=== PATIENT | male | born 1950 | race African-American/Black ===

== ENCOUNTER 2016-10-04 10:28 | Emergency (ER) | payer OTHER ==
[2016-10-04 10:39] VITALS: TEMP 98.1; BMI 30.7
[2016-10-04] MEDS ORDERED: SODIUM CHLORIDE 1,000 ML IV STA (11:12)
--- NOTE | 2016-10-04 11:20 | PDOC ---
History of Present Illness - General History Source: Patient Exam Limitations: No Limitations - History of Present Illness Initial Comments: CHIEF COMPLAINT: 66 y/o afebrile male with PMH HTN, DM c/o dizziness and high blood sugar this morning. HISTORY OF PRESENT ILLNESS: The patient states that he woke up, checked his sugar and it was 151. He took his glipizide, waiting a while, then ate breakfast. He laid down, woke up and felt lightheaded. He checked his sugar again and it was 204. He states when his sugar gets high he gets lightheaded and has to come to the ER to get "medicine" to fix his sugar. He denies f/c, OCHOA , neck pain, changes in vision/hearing, n/v/d, CP, SOB, abd pain, back pain, hematuria, dysuria. Vital signs on arrival are notable for BP of 158/99. REVIEW OF SYSTEMS: GENERAL/CONSTITUTIONAL: No fever/chills. No weakness. No weight change. + lightheaded HEAD, EYES, EARS, NOSE AND THROAT: No change in vision. No ear pain or discharge. No sore throat. CARDIOVASCULAR: No chest pain or shortness of breath. RESPIRATORY: No cough, wheezing, or hemoptysis. GASTROINTESTINAL: No abd pain, nausea, vomiting, diarrhea. GENITOURINARY: No dysuria, frequency, or change in urination. MUSCULOSKELETAL: No joint or muscle swelling or pain. No neck or back pain. SKIN: No rash or easy bruising. NEUROLOGIC: No headache, vertigo, loss of consciousness, or loss of sensation. PHYSICAL EXAM: GENERAL: The patient is awake, alert, and fully oriented, in no acute distress. He is well appearing, well spoken and ambulatory. HEAD: Normal with no signs of trauma. ENT: Pupils equal, round and reactive to light, extraocular movements intact, sclera anicteric, conjunctiva clear. Neck supple. Mucous membranes moist. LUNGS: Clear to auscultation bilaterally. Normal excursion. No respiratory distress or use of accessory muscles. CV: RRR, S1/S2, no MRG. Cap refill < 2 sec. ABDOMEN: Soft, non-distended, non-tender even to deep palpation, no hepatomegaly or splenomegaly, no masses. EXTREMITIES: Normal range of motion, no edema. NEUROLOGICAL: Normal speech, normal gait. CN II-XII grossly intact. PSYCH: Normal mood, normal affect. SKIN: Warm, dry, normal turgor, no rashes or lesions noted. <Bonita Tafoya - Last Filed: 10/04/16 14:37> <Erik Davidson - Last Filed: 10/06/16 08:34> - General Chief Complaint: Blood Sugar Problem Stated Complaint: HIGH BLOOD SUGAR Time Seen by Provider: 10/04/16 10:59 Past History - Past Medical History Anemia: No Asthma: No Cancer: No Cardiac Disorders: Yes CVA: Yes (2002 2010) COPD: No CHF: No Dementia: No Diabetes: Yes (PRE DIABETES) GI Disorders: Yes (HEP A, B, E, H. PYLORIS, ESOPHAGEAL VARICES, HYPERCALCEMIA) Disorders: Yes (frequency uses flomax) HTN: Yes Hypercholesterolemia: Yes HIV: Yes Kidney Stones: Yes (BY HX) Liver Disease: Yes (hep a, b, c) Seizures: No Thyroid Disease: No - Surgical History Abdominal Surgery: No Appendectomy: No Cardiac Surgery: Yes (cardiac cath no stents) Cholecystectomy: (GALLSTONES) Lung Surgery: No Neurologic Surgery: No Orthopedic Surgery: No - Psycho/Social/Smoking Cessation Hx Anxiety: No Suicidal Ideation: No Smoking Status: No Smoking History: Never smoked Years of Tobacco Use: 5 Have you smoked in the past 12 months: No Number of Cigarettes Smoked Daily: 3 If you are a former smoker, when did you quit?: 5 yrs ago Cigars Per Day: 0 Information on smoking cessation initiated: No Hx Alcohol Use: Yes (occasional) Drug/Substance Use Hx: No Substance Use Type: Alcohol Hx Substance Use Treatment: No <Bonita Tafoya - Last Filed: 10/04/16 14:37> <Erik Davidson - Last Filed: 10/06/16 08:34> - Past Medical History Allergies/Adverse Reactions: Allergies Allergy/AdvReac Type Severity Reaction Status Date / Time No Known Allergies Allergy Verified 10/04/16 11:50 Home Medications: Ambulatory Orders Aspirin [ASA -] 81 mg PO DAILY #0 tab.chew 11/30/12 Lisinopril [Prinivil] 10 mg PO DAILY #0 tablet 11/30/12 Metformin HCl [Glucophage -] 500 mg PO BID #0 tablet 11/30/12 Metoprolol Tartrate [Lopressor -] 50 mg PO BID #14 tablet 11/30/12 Naproxen [Naprosyn -] 500 mg PO BID #30 tablet 03/04/14 *Physical Exam - Vital Signs Last Vital Signs Temp Pulse Resp BP Pulse Ox 98.1 F 91 H 15 158/99 100 10/04/16 10:36 10/04/16 10:36 10/04/16 10:36 10/04/16 10:36 10/04/16 10:36 <Bonita Tafoya - Last Filed: 10/04/16 14:37> - Vital Signs Last Vital Signs Temp Pulse Resp BP Pulse Ox 98.1 F 71 20 143/87 96 10/04/16 10:36 10/04/16 14:37 10/04/16 14:37 10/04/16 14:37 10/04/16 14:37 <Erik Davidson - Last Filed: 10/06/16 08:34> Heart Score/ECG Review - ECG Intrepretation Comment:: Twelve-lead EKG was performed and reviewed by Dr. Davidson. There is normal sinus rhythm with a normal rate. The axis is normal. The intervals are normal. There are no ST or T wave abnormalities. Impression: Normal twelve-lead EKG <Bonita Tafoya - Last Filed: 10/04/16 14:37> ED Treatment Course - LABORATORY CBC & Chemistry Diagram: 10/04/16 11:53 10/04/16 11:53 <Bonita Tafoya - Last Filed: 10/04/16 14:37> - LABORATORY CBC & Chemistry Diagram: 10/04/16 11:53 10/04/16 11:53 - ADDITIONAL ORDERS Additional order review: 10/04/16 11:53 RBC 4.83 D MCV 86.0 MCHC 32.8 RDW 14.8 MPV 7.4 L Neutrophils % 50.5 D Lymphocytes % 38.9 D Monocytes % 8.8 Eosinophils % 1.3 Basophils % 0.5 - Medications Given in the ED: ED Medications Discontinued Medications Generic Name Dose Route Start Last Admin Trade Name Freq PRN Reason Stop Dose Admin Sodium Chloride 1,000 mls @ 1,000 mls/hr 10/04/16 11:12 10/04/16 11:47 Normal Saline - IV 10/04/16 12:11 1,000 mls/hr ASDIR STA Administration <Erik Davidson - Last Filed: 10/06/16 08:34> Medical Decision Making - Medical Decision Making A/P: 66 y/o male feeling lightheaded this morning with blood sugar of 204. Plan is as follows: 1. Labs 2. UA 3. EKG 4. IV fluids Labs unremarkable EKG normal Patient's vital signs have improved. He states he feels much better and is no longer lightheaded. Pt was mildly dehydrated. instructed him to continue to drink plenty of fluids at home. Instructed him to f/u with his doctor as soon as possible and return to the ER with any worsening or concerning symptoms. The patient verbalizes understanding of all instructions, has no further questions and is awaiting discharge. <Bonita Tafoya - Last Filed: 10/04/16 14:37> - Medical Decision Making 10/06/16 08:34 The patient was seen and evaluated in conjunction with MARCK Tafoya under my direct supervision, ancillary studies were reviewed. I agree with the plan as outlined by MARCK Tafoya . <Erik Davidson - Last Filed: 10/06/16 08:34> *DC/Admit/Observation/Transfer <Bonita Tafoya - Last Filed: 10/04/16 14:37> <Erik Davidson - Last Filed: 10/06/16 08:34> Diagnosis at time of Disposition: Dehydration - Discharge Dispostion Disposition: HOME Condition at time of disposition: Improved - Patient Instructions Printed Discharge Instructions: DI for Dehydration -- Adult Additional Instructions: Discharge Instructions: -Drink at least 64oz of water daily -continue taking all of your home medications as prescribed -Follow up with your doctor as soon as possible -Return to the ER immediately with any worsening or concerning symptoms.
[2016-10-04 12:06] LABS: BASOPHIL 0.5 % (0-2.0); EOSINOPHIL 1.3 % (0-4.5); MCH 28.2 pg (25.7-33.7); MCHC 32.8 g/dl (32.0-35.9); MEAN PLT VOLUME 7.4 fl (7.5-11.1); NEUTROPHILS 50.5 % (42.8-82.8); PLATELET COUNT 219 K/MM3 (134-434); RDW 14.8 % (11.9-15.9)
--- NOTE | 2016-10-04 12:28 | EKG ---
Test Reason : Blood Pressure : / mmHG Vent. Rate : 078 BPM Atrial Rate : 078 BPM P-R Int : 194 ms QRS Dur : 090 ms QT Int : 348 ms P-R-T Axes : 069 003 011 degrees QTc Int : 396 ms NORMAL SINUS RHYTHM POSSIBLE LEFT ATRIAL ENLARGEMENT POOR R WAVE PROGRESSION ABNORMAL ECG WHEN COMPARED WITH ECG OF 27-NOV-2012 07:26, NO SIGNIFICANT CHANGE WAS FOUND Confirmed by RYAN LAZAR, STEVE ([id number]) on 10/04/2016 12:27:59 PM Referred By: Confirmed By:STEVE DAVIS MD
[2016-10-04 12:29] LABS: ALBUMIN 3.8 g/dl (3.4-5.0); ANION GAP 8 (8-16); BILIRUBIN,TOTAL 0.4 mg/dL (0.2-1.0); CALCIUM 10.1 mg/dL (8.5-10.1); CO2 30 mmol/L (21-32); COCKROFT - GAULT 91.9; CREATININE 1.1 mg/dL (0.7-1.3); GLUCOSE,RANDOM 125 mg/dL (74-106); SGPT/ALT 30 U/L (12-78); TOT PROT 9.2 g/dl (6.4-8.2)
[2016-10-04 12:30] LABS: ALK PHOS 64 U/L (45-117)
[2016-10-04 12:32] LABS: SGOT/AST 39 U/L (15-37)
[2016-10-04 12:42] LABS: URINE APPEARANCE CLEAR; URINE BILIRUBIN NEGATIVE (NEGATIVE); URINE BLOOD NEGATIVE (NEGATIVE); URINE COLOR STRAW; URINE GLUCOSE (UA) NEGATIVE (NEGATIVE); URINE KETONE NEGATIVE (NEGATIVE); URINE LEUK ESTERASE NEGATIVE (NEGATIVE); URINE NITRITE NEGATIVE (NEGATIVE); URINE PROTEIN NEGATIVE (NEGATIVE); URINE UROBILINOGEN NEGATIVE E.U./dl (0.2-1.0)
[2016-10-04 13:48] LABS: TROPONIN I < 0.02 ng/ml (0.00-0.05)
[2016-10-04 14:38] VITALS: BP 143/87; PULSE 71
== END 2016-10-04 14:53 | disposition home or self-care (01) ==
LOC: JER 10:28
PROC: 3E0337Z Introduction of Electrolytic and Water Balance Substance into Peripheral Vein, Percutaneous Approach (ICD-10-PCS; principal; 2016-10-04)
DX: E86.0 Dehydration (principal); E11.65 Type 2 diabetes mellitus with hyperglycemia; Z79.84 Long term (current) use of oral hypoglycemic drugs; I10 Essential (primary) hypertension; Z86.73 Personal history of transient ischemic attack (TIA), and cerebral infarction without residual deficits; Z86.19 Personal history of other infectious and parasitic diseases; Z98.61 Coronary angioplasty status
CPT/HCPCS: 36415; 80053; 81003; 82550; 84484; 85025; 93005; 93010; 99284-25

== ENCOUNTER 2017-02-27 15:30 | Inpatient (IN) | payer OTHER ==
[2017-02-27 15:36] VITALS: BMI 31.1
[2017-02-27 16:50] LABS: BASOPHIL 0.5 % (0-2.0); EOSINOPHIL 1.9 % (0-4.5); MCH 28.8 pg (25.7-33.7); MEAN CELL VOLUME 87.2 fl (80-96); MEAN PLT VOLUME 8.4 fl (7.5-11.1); NEUTROPHILS 50.4 % (42.8-82.8); PLATELET COUNT 171 K/MM3 (134-434); RDW 14.5 % (11.9-15.9)
--- NOTE | 2017-02-27 16:57 | PDOC ---
History of Present Illness - General Chief Complaint: Syncope/Near Syncope Stated Complaint: FALL, PAIN Time Seen by Provider: 02/27/17 16:19 Past History - Past Medical History Allergies/Adverse Reactions: Allergies Allergy/AdvReac Type Severity Reaction Status Date / Time No Known Allergies Allergy Verified 02/27/17 15:39 Home Medications: Ambulatory Orders Aspirin [ASA -] 81 mg PO DAILY #0 tab.chew 11/30/12 Lisinopril [Prinivil] 10 mg PO DAILY #0 tablet 11/30/12 Metformin HCl [Glucophage -] 500 mg PO BID #0 tablet 11/30/12 Metoprolol Tartrate [Lopressor -] 50 mg PO BID #14 tablet 11/30/12 Naproxen [Naprosyn -] 500 mg PO BID #30 tablet 03/04/14 Anemia: No Asthma: No Cancer: No Cardiac Disorders: Yes (tachycardia, palpitations) CVA: Yes (2002 2010) COPD: No CHF: No Dementia: No Diabetes: Yes (PRE DIABETES) GI Disorders: Yes (HEP A, B, E, H. PYLORIS, ESOPHAGEAL VARICES, HYPERCALCEMIA) Disorders: Yes (frequency uses flomax) HTN: Yes Hypercholesterolemia: Yes HIV: Yes Kidney Stones: Yes (BY HX) Liver Disease: Yes (hep a, b, c) Seizures: No Thyroid Disease: No - Surgical History Abdominal Surgery: No Appendectomy: No Cardiac Surgery: Yes (cardiac cath no stents) Cholecystectomy: (GALLSTONES) Lung Surgery: No Neurologic Surgery: No Orthopedic Surgery: No - Immunization History Immunization Up to Date: Yes - Psycho/Social/Smoking Cessation Hx Anxiety: No Suicidal Ideation: No Smoking Status: No Smoking History: Former smoker Years of Tobacco Use: 5 Have you smoked in the past 12 months: No Number of Cigarettes Smoked Daily: 3 If you are a former smoker, when did you quit?: 9 years ago Cigars Per Day: 0 Information on smoking cessation initiated: No Hx Alcohol Use: No Drug/Substance Use Hx: No Substance Use Type: Alcohol Hx Substance Use Treatment: No Cardiac Specific PMH - Complaint Specific PMHX Pacemaker: No *Physical Exam - Vital Signs Last Vital Signs Temp Pulse Resp BP Pulse Ox 98.1 F 75 18 155/100 99 02/27/17 15:33 02/27/17 15:33 02/27/17 15:33 02/27/17 15:33 02/27/17 15:33 ED Treatment Course - LABORATORY CBC & Chemistry Diagram: 02/27/17 16:31 02/27/17 16:31 - ADDITIONAL ORDERS Additional order review: Laboratory Results 02/27/17 16:25 POC Glucometer [id number] 02/27/17 02/27/17 16:31 16:25 RBC 4.00 MCV 87.2 MCHC 33.0 RDW 14.5 MPV 8.4 D Neutrophils % 50.4 Lymphocytes % 39.4 Monocytes % 7.8 Eosinophils % 1.9 Basophils % 0.5 POC Glucometer 175.34045
[2017-02-27 17:04] LABS: INR 1.05 (0.82-1.09); PROTHROMBIN TIME (PATIENT) 11.6 SEC (9.98-11.88)
[2017-02-27 17:13] LABS: ALBUMIN 3.5 g/dl (3.4-5.0); ANION GAP 7 (8-16); CALCIUM 9.2 mg/dL (8.5-10.1); CO2 28 mmol/L (21-32); CREATININE 1.1 mg/dL (0.7-1.3); GLUCOSE,RANDOM 152 mg/dL (74-106); SGOT/AST 25 U/L (15-37)
[2017-02-27 17:25] LABS: ALK PHOS 58 U/L (45-117); BILIRUBIN,TOTAL 0.3 mg/dL (0.2-1.0); CPK 132 IU/L (39-308); SGPT/ALT 26 U/L (12-78); TOT PROT 7.9 g/dl (6.4-8.2); TROPONIN I < 0.02 ng/ml (0.00-0.05)
--- NOTE | 2017-02-27 20:03 | PDOC ---
History of Present Illness - History of Present Illness Initial Comments: 02/27/17 20:36 The patient is a 66-year-old male with a significant past medical history of hypertension, hyperlipidemia, DM, HIV. who presents to ED for evaluation of dizziness s/p syncopal episode this morning while walking across the street. The patient reports feeling dizzy and admits to falling onto his face sustaining injury to his lips. He reports no knowledge of falling or how he got onto the floor, however, does remember feeling dizzy prior to taking up on the floor. THe reports noticing scrapes to his bilateral elbows and his upper lip. He states he laid on the floor for a few minutes, and was able to ambulate without assistance afterwards as he waited for ems. He reports experiencing a similar episode in the past which the patient attributes to vertigo. He denies chest pain, shortness of breath, headache. He denies fever, chills, nausea, vomit, diarrhea and constipation. He denies dysuria, frequency, urgency and hematuria. Allergies: JC PCP - /Filiberto Swan [employer] - Dr. Mcgee <Crisetla Abarca - Last Filed: 02/27/17 23:11> <Gayla Dial - Last Filed: 02/27/17 23:18> - General Chief Complaint: Syncope/Near Syncope Stated Complaint: FALL, PAIN Time Seen by Provider: 02/27/17 16:19 Past History <Cristela Abarca - Last Filed: 02/27/17 23:11> - Past Medical History Anemia: No Asthma: No Cancer: No Cardiac Disorders: Yes (tachycardia, palpitations) CVA: Yes (2002 2010) COPD: No CHF: No Dementia: No Diabetes: Yes (PRE DIABETES) GI Disorders: Yes (HEP A, B, E, H. PYLORIS, ESOPHAGEAL VARICES, HYPERCALCEMIA) Disorders: Yes (frequency uses flomax) HTN: Yes Hypercholesterolemia: Yes HIV: Yes Kidney Stones: Yes (BY HX) Liver Disease: Yes (hep a, b, c) Seizures: No Thyroid Disease: No - Surgical History Abdominal Surgery: No Appendectomy: No Cardiac Surgery: Yes (cardiac cath no stents) Cholecystectomy: (GALLSTONES) Lung Surgery: No Neurologic Surgery: No Orthopedic Surgery: No - Immunization History Immunization Up to Date: Yes - Psycho/Social/Smoking Cessation Hx Anxiety: No Suicidal Ideation: No Smoking Status: No Smoking History: Former smoker Years of Tobacco Use: 5 Have you smoked in the past 12 months: No Number of Cigarettes Smoked Daily: 3 If you are a former smoker, when did you quit?: 9 years ago Cigars Per Day: 0 Information on smoking cessation initiated: No Hx Alcohol Use: No Drug/Substance Use Hx: No Substance Use Type: Alcohol Hx Substance Use Treatment: No <Gayla Dial - Last Filed: 02/27/17 23:18> - Past Medical History Allergies/Adverse Reactions: Allergies Allergy/AdvReac Type Severity Reaction Status Date / Time No Known Allergies Allergy Verified 02/27/17 15:39 Home Medications: Ambulatory Orders Aspirin [ASA -] 81 mg PO DAILY #0 tab.chew 11/30/12 Lisinopril [Prinivil] 10 mg PO DAILY #0 tablet 11/30/12 Metformin HCl [Glucophage -] 500 mg PO BID #0 tablet 11/30/12 Metoprolol Tartrate [Lopressor -] 50 mg PO BID #14 tablet 11/30/12 Morphine Sulfate 15 mg PO BID 02/27/17 Oxycodone HCl 10 mg PO BID 02/27/17 Review of Systems - Review of Systems Able to Perform ROS?: Yes Comments:: 02/27/17 20:37 CONSTITUTIONAL: Absent: fever, chills, diaphoresis, generalized weakness, malaise, loss of appetite HEENT: Absent: rhinorrhea, nasal congestion, throat pain, throat swelling, difficulty swallowing, mouth swelling, ear pain, eye pain, visual Changes CARDIOVASCULAR: (+) syncope, Absent: chest pain, palpitations, irregular heart rate, lightheadedness, peripheral edema RESPIRATORY: Absent: cough, shortness of breath, dyspnea with exertion, orthopnea, wheezing, stridor, hemoptysis GASTROINTESTINAL: Absent: abdominal pain, abdominal distension, nausea, vomiting, diarrhea, constipation, melena, hematochezia GENITOURINARY: Absent: dysuria, frequency, urgency, hesitancy, hematuria, flank pain, genital pain MUSCULOSKELETAL: Absent: myalgia, arthralgia, joint swelling SKIN: (+) bilateral elbow abrasions. abrasion to upper lip. Absent: rash, itching, pallor HEMATOLOGIC/IMMUNOLOGIC: Absent: easy bleeding, easy bruising, lymphadenopathy, frequent infections ENDOCRINE: Absent: unexplained weight gain, unexplained weight loss, heat intolerance, cold intolerance NEUROLOGIC: (+) dizziness and syncope. Absent: headache, focal weakness or paresthesias, unsteady gait, seizure, mental status changes, bladder or bowel incontinence PSYCHIATRIC: Absent: anxiety, depression, suicidal or homicidal ideation, hallucinations. <Cristela Abarca - Last Filed: 02/27/17 23:11> *Physical Exam - Vital Signs Last Vital Signs Temp Pulse Resp BP Pulse Ox 98.1 F 75 18 155/100 100 02/27/17 15:33 02/27/17 15:33 02/27/17 15:33 02/27/17 15:33 02/27/17 17:00 - Physical Exam Comments: 02/27/17 20:38 GENERAL: Well developed, well nourished. Awake and alert. No acute distress. HEENT: Normocephalic, atraumatic. PERRLA, EOMI. No conjunctival pallor. Sclera are non- icteric. Moist mucous membranes. Oropharynx is clear. NECK: Supple. Full ROM. No JVD. Carotid pulses 2+ and symmetric, without bruits. No thyromegaly. No lymphadenopathy. CARDIOVASCULAR: Regular rate and rhythm. No murmurs, rubs, or gallops. Distal pulses are 2+ and symmetric. PULMONARY: No evidence of respiratory distress. Lungs clear to auscultation bilaterally. No wheezing, rales or rhonchi. ABDOMINAL: Soft. Non-tender. Non-distended. No rebound or guarding. No organomegaly. Normoactive bowel sounds. MUSCULOSKELETAL Normal range of motion at all joints. No bony deformities or tenderness. No CVA tenderness. EXTREMITIES: No cyanosis. No clubbing. No edema. No calf tenderness. SKIN: (+) Abrasions to bilateral elbows and abrasion to maxillary lip. Warm and dry. Normal capillary refill. No rashes. No jaundice. NEUROLOGICAL: Alert, awake, appropriate. Cranial nerves 2-12 intact. Normoreflexic in the upper and lower extremities. Normal speech. Toes are down-going bilaterally. Gait is normal without ataxia. PSYCHIATRIC: Cooperative. Good eye contact. Appropriate mood and affect. <Cristela Abarca - Last Filed: 02/27/17 23:11> - Vital Signs Last Vital Signs Temp Pulse Resp BP Pulse Ox 98.1 F 75 18 155/100 100 02/27/17 15:33 02/27/17 15:33 02/27/17 15:33 02/27/17 15:33 02/27/17 16:00 <Gayla Dial - Last Filed: 02/27/17 23:18> ED Treatment Course - LABORATORY CBC & Chemistry Diagram: 02/27/17 16:31 02/27/17 16:31 - ADDITIONAL ORDERS Additional order review: Laboratory Results 02/27/17 02/27/17 02/27/17 16:31 16:31 16:25 INR 1.05 Sodium 140 Potassium 4.2 Chloride 105 Carbon Dioxide 28 Anion Gap 7 L BUN 19 H Creatinine 1.1 Creat Clearance w eGFR > 60 POC Glucometer 175.01659 Random Glucose 152 H D Calcium 9.2 Total Bilirubin 0.3 D AST 25 D ALT 26 Alkaline Phosphatase 58 Creatine Kinase 132 Troponin I < 0.02 Total Protein 7.9 Albumin 3.5 02/27/17 02/27/17 16:31 16:25 RBC 4.00 MCV 87.2 MCHC 33.0 RDW 14.5 MPV 8.4 D Neutrophils % 50.4 Lymphocytes % 39.4 Monocytes % 7.8 Eosinophils % 1.9 Basophils % 0.5 POC Glucometer [id number] - RADIOLOGY Radiograph Interpretation: 02/27/17 23:12 CT HEAD was read by Matthew Salgado MD at 19:23 EST REASON FOR EXAM: Closed head injury. Syncope. COMPARISON: None No acute skull fracture, intracranial hemorrhage or parenchymal edema demonstrated. There is no acute cortical infarction, intracranial mass, edema, hydrocephalus or abnormal extraaxial collection. The visualized paranasal sinuses and mastoids clear. CT CHEST without contrast was read by Matthew Salgado MD at 19:27 EST REASON FOR EXAM: Fall. Chest pain. COMPARISON: None FINDINGS: No rib fracture is seen. The sternum is intact. No evidence of pneumothorax or hemothorax noted. Bilateral lungs are well expanded. Right diaphragm elevation seen. No parenchymal opacity lung contusion or infiltrate is seen. No evidence of mediastinal hematoma. Heart size is normal without pericardial effusion. The thoracic aorta demonstrates unremarkable course and caliber. PE or aortic dissection is not evaluated without IV contrast. The upper abdomen below the diaphragms included in the examination is unremarkable. <Cristela Abarca - Last Filed: 02/27/17 23:11> - LABORATORY CBC & Chemistry Diagram: 02/27/17 16:31 02/27/17 16:31 - ADDITIONAL ORDERS Additional order review: Laboratory Results 02/27/17 02/27/17 02/27/17 16:31 16:31 16:25 INR 1.05 Sodium 140 Potassium 4.2 Chloride 105 Carbon Dioxide 28 Anion Gap 7 L BUN 19 H Creatinine 1.1 Creat Clearance w eGFR > 60 POC Glucometer 175.27682 Random Glucose 152 H D Calcium 9.2 Total Bilirubin 0.3 D AST 25 D ALT 26 Alkaline Phosphatase 58 Creatine Kinase 132 Troponin I < 0.02 Total Protein 7.9 Albumin 3.5 02/27/17 02/27/17 16:31 16:25 RBC 4.00 MCV 87.2 MCHC 33.0 RDW 14.5 MPV 8.4 D Neutrophils % 50.4 Lymphocytes % 39.4 Monocytes % 7.8 Eosinophils % 1.9 Basophils % 0.5 POC Glucometer 175.27374 <JayroGaylafarhan Cano - Last Filed: 02/27/17 23:18> Medical Decision Making - Medical Decision Making 02/27/17 20:32 Dr. Swan was paged via phone answering service at this time requesting a call back for doctor to doctor consult. I have been informed Dr. Farnsworth is on- call tonight. 02/27/17 20:32 Dr. Farnsworth returned the call and the patient's case was discussed. 02/27/17 20:45 Dr. Mcgee was paged at this time requesting a call back for doctor to doctor consult. 02/27/17 21:00 Dr. Marcelo returned the call and the patient's case was discussed. <Cristela Abarca - Last Filed: 02/27/17 23:11> *DC/Admit/Observation/Transfer <Cristela Abarca - Last Filed: 02/27/17 23:11> - Discharge Dispostion Admit: Yes <Gayla Dial - Last Filed: 02/27/17 23:18> Diagnosis at time of Disposition: Syncope and collapse, Swelling of upper lip Abrasion of arm, right Qualifiers: Encounter type: initial encounter Qualified Code(s): S40.811A - Abrasion of right upper arm, initial encounter Diabetes mellitus Qualifiers: Diabetes mellitus type: type 2 Diabetes mellitus complication status: with hyperglycemia Diabetes mellitus director long term care insulin use: without director long term care use Qualified Code(s): E11.65 - Type 2 diabetes mellitus with hyperglycemia Fall Qualifiers: Encounter type: initial encounter Qualified Code(s): W19.XXXA - Unspecified fall, initial encounter
[2017-02-27] MEDS ORDERED: morphine CARPU-JECT 2 MG/1 ML DISP.SYRIN IVPUSH ONE (20:36)
[2017-02-27] MEDS ORDERED: morphine CARPU-JECT 2 MG/1 ML DISP.SYRIN ONE (20:44)
--- NOTE | 2017-02-27 21:31 | PN ---
Teaching Attending Note Name of Resident: Angel Ruiz ATTENDING PHYSICIAN STATEMENT I saw and evaluated the patient. I reviewed the resident's note and discussed the case with the resident. I agree with the resident's findings and plan as documented. SUBJECTIVE: 66 yo F with pmhx of HTN, HLD, DM, hx.od CVA hx of treated hep B,HIV who presents to ED. States he lost concioussness while he was walking across the street. States he felt dizzy prior. No chest pain or pressure, no shortness of breath. NO palpitaytions. OBJECTIVE: Physical: VS: Vital Signs Period Temp Pulse Resp BP Sys/Johnson Pulse Ox Last 24 Hr 98.1 F-98.1 F 67-75 18-18 150-155/86-100 99-100 GEN: NAd, resting in bed, AA0X3 HEENT: NCAT, PERRL, Throat withour erythema or exudates CARD: RRR S1, S2 RESP: CTAB ABD: BSx4, NTD to palpation EXT: - C/C/E CBCD WBC 5.0 K/mm3 (4.0-10.0) 02/27/17 16:31 RBC 4.00 M/mm3 (4.00-5.60) 02/27/17 16:31 Hgb 11.5 GM/dL (11.7-16.9) L D 02/27/17 16:31 Hct 34.9 % (35.4-49) L D 02/27/17 16:31 MCV 87.2 fl (80-96) 02/27/17 16:31 MCHC 33.0 g/dl (32.0-35.9) 02/27/17 16:31 RDW 14.5 % (11.9-15.9) 02/27/17 16:31 Plt Count 171 K/MM3 (134-434) D 02/27/17 16:31 MPV 8.4 fl (7.5-11.1) D 02/27/17 16:31 CMP Sodium 140 mmol/L (136-145) 02/27/17 16:31 Potassium 4.2 mmol/L (3.5-5.1) 02/27/17 16:31 Chloride 105 mmol/L (98-107) 02/27/17 16:31 Carbon Dioxide 28 mmol/L (21-32) 02/27/17 16:31 Anion Gap 7 (8-16) L 02/27/17 16:31 BUN 19 mg/dL (7-18) H 02/27/17 16:31 Creatinine 1.1 mg/dL (0.7-1.3) 02/27/17 16:31 Creat Clearance w eGFR > 60 (>60) 02/27/17 16:31 Random Glucose 152 mg/dL (74-106) H D 02/27/17 16:31 Calcium 9.2 mg/dL (8.5-10.1) 02/27/17 16:31 Total Bilirubin 0.3 mg/dL (0.2-1.0) D 02/27/17 16:31 AST 25 U/L (15-37) D 02/27/17 16:31 ALT 26 U/L (12-78) 02/27/17 16:31 Alkaline Phosphatase 58 U/L (45-117) 02/27/17 16:31 Total Protein 7.9 g/dl (6.4-8.2) 02/27/17 16:31 Albumin 3.5 g/dl (3.4-5.0) 02/27/17 16:31 CARDIAC ENZYMES Creatine Kinase 132 IU/L (39-308) 02/27/17 16:31 Troponin I < 0.02 ng/ml (0.00-0.05) 02/27/17 16:31 CT HEAD: Negative CT CHEST: Negative EKG: NSR 69, q waves septal leads Home Medications Medication Instructions Recorded Aspirin [ASA -] 81 mg PO DAILY #0 tab.chew 11/30/12 Lisinopril [Prinivil] 10 mg PO DAILY #0 tablet 11/30/12 Metformin HCl [Glucophage -] 500 mg PO BID #0 tablet 11/30/12 Metoprolol Tartrate [Lopressor -] 50 mg PO BID #14 tablet 11/30/12 Morphine Sulfate 15 mg PO BID 02/27/17 Oxycodone HCl 10 mg PO BID 02/27/17 ASSESSMENT AND PLAN: 66 yo M with pmhx. of HTN, HLD, DM, and HIV who present with loss of conciousness 1.) Synope DDx; Vasovagal vs. cardioegnic - Orthostatic VS - Echo/Carotid us - ? Possible Stress test done 1 month ago at [facility] - Trend trops/ekg - Lipis panel - Cardiology consulted 2.) R. Shoulder Pain - R. Shoulder Xray 3.) HIV - On HARRT- Continue - VL undectable - CD4, follows ID at [facility] 4.) DM - RAISS - FS - Hold Metformin 5.) HTN - Orthostatic VS - C/w home meds if ok 5.) Vertigo - C/W Meclizine 6.) hx. of CVA - C/W ASA 6.) HLD - C/W Home meds 6.) Dvt ppx - SCD Place in OBS tele
--- NOTE | 2017-02-27 23:30 | HP ---
CHIEF COMPLAINT: PCP: HISTORY OF PRESENT ILLNESS: ER course was notable for: (1) (2) (3) Recent Travel: PAST MEDICAL HISTORY: PAST SURGICAL HISTORY: Social History: Smoking: Alcohol: Drugs: Family History: Allergies No Known Allergies Allergy (Verified 02/27/17 15:39) HOME MEDICATIONS: Home Medications Medication Instructions Recorded Aspirin [ASA -] 81 mg PO DAILY #0 tab.chew 11/30/12 Lisinopril [Prinivil] 10 mg PO DAILY #0 tablet 11/30/12 Metformin HCl [Glucophage -] 500 mg PO BID #0 tablet 11/30/12 Metoprolol Tartrate [Lopressor -] 50 mg PO BID #14 tablet 11/30/12 Morphine Sulfate 15 mg PO BID 02/27/17 Oxycodone HCl 10 mg PO BID 02/27/17 REVIEW OF SYSTEMS CONSTITUTIONAL: Absent: fever, chills, diaphoresis, generalized weakness, malaise, loss of appetite, weight change HEENT: Absent: rhinorrhea, nasal congestion, throat pain, throat swelling, difficulty swallowing, mouth swelling, ear pain, eye pain, visual changes CARDIOVASCULAR: Absent: chest pain, syncope, palpitations, irregular heart rate, lightheadedness , peripheral edema RESPIRATORY: Absent: cough, shortness of breath, dyspnea with exertion, orthopnea, wheezing, stridor, hemoptysis GASTROINTESTINAL: Absent: abdominal pain, abdominal distension, nausea, vomiting, diarrhea, constipation, melena, hematochezia GENITOURINARY: Absent: dysuria, frequency, urgency, hesitancy, hematuria, flank pain, genital pain MUSCULOSKELETAL: Absent: myalgia, arthralgia, joint swelling, back pain, neck pain SKIN: Absent: rash, itching, pallor HEMATOLOGIC/IMMUNOLOGIC: Absent: easy bleeding, easy bruising, lymphadenopathy, frequent infections ENDOCRINE: Absent: unexplained weight gain, unexplained weight loss, heat intolerance, cold intolerance NEUROLOGIC: Absent: headache, focal weakness or paresthesias, dizziness, unsteady gait, seizure, mental status changes, bladder or bowel incontinence PSYCHIATRIC: Absent: anxiety, depression, suicidal or homicidal ideation, hallucinations. PHYSICAL EXAMINATION Vital Signs - 24 hr 02/27/17 02/27/17 02/27/17 15:33 16:00 17:00 Temperature 98.1 F Pulse Rate 75 Pulse Rate [ Apical] Respiratory 18 Rate Blood Pressure 155/100 Blood Pressure [Left Arm] O2 Sat by Pulse 99 100 100 Oximetry (%) 02/27/17 20:42 Temperature 98.1 F Pulse Rate Pulse Rate [ 67 Apical] Respiratory 18 Rate Blood Pressure Blood Pressure 150/86 [Left Arm] O2 Sat by Pulse 100 Oximetry (%) GENERAL: Awake, alert, and fully oriented, in no acute distress. HEAD: Normal with no signs of trauma. EYES: Pupils equal, round and reactive to light, extraocular movements intact, sclera anicteric, conjunctiva clear. No lid lag. EARS, NOSE, THROAT: Ears normal, nares patent, oropharynx clear without exudates. Moist mucous membranes. NECK: Normal range of motion, supple without lymphadenopathy, JVD, or masses. LUNGS: Breath sounds equal, clear to auscultation bilaterally. No wheezes, and no crackles. No accessory muscle use. HEART: Regular rate and rhythm, normal S1 and S2 without murmur, rub or gallop. ABDOMEN: Soft, nontender, not distended, normoactive bowel sounds, no guarding, no rebound, no masses. No hepatomegaly or splenomegaly. MUSCULOSKELETAL: Normal range of motion at all joints. No bony deformities or tenderness. No CVA tenderness. UPPER EXTREMITIES: 2+ pulses, warm, well-perfused. No cyanosis. No clubbing. No peripheral edema. LOWER EXTREMITIES: 2+ pulses, warm, well-perfused. No calf tenderness. No peripheral edema. NEUROLOGICAL: Cranial nerves II-XII intact. Normal speech. Normal gait. PSYCHIATRIC: Cooperative. Good eye contact. Appropriate mood and affect. SKIN: Warm, dry, normal turgor, no rashes or lesions noted, normal capillary refill. Laboratory Results - last 24 hr 02/27/17 02/27/17 02/27/17 16:25 16:31 16:31 WBC 5.0 RBC 4.00 Hgb 11.5 L D Hct 34.9 L D MCV 87.2 MCH 28.8 MCHC 33.0 RDW 14.5 Plt Count 171 D MPV 8.4 D Neutrophils % 50.4 Lymphocytes % 39.4 Monocytes % 7.8 Eosinophils % 1.9 Basophils % 0.5 INR 1.05 Sodium Potassium Chloride Carbon Dioxide Anion Gap BUN Creatinine Creat Clearance w eGFR POC Glucometer [phone] Random Glucose Calcium Total Bilirubin AST ALT Alkaline Phosphatase Creatine Kinase Troponin I Total Protein Albumin 02/27/17 16:31 WBC RBC Hgb Hct MCV MCH MCHC RDW Plt Count MPV Neutrophils % Lymphocytes % Monocytes % Eosinophils % Basophils % INR Sodium 140 Potassium 4.2 Chloride 105 Carbon Dioxide 28 Anion Gap 7 L BUN 19 H Creatinine 1.1 Creat Clearance w eGFR > 60 POC Glucometer Random Glucose 152 H D Calcium 9.2 Total Bilirubin 0.3 D AST 25 D ALT 26 Alkaline Phosphatase 58 Creatine Kinase 132 Troponin I < 0.02 Total Protein 7.9 Albumin 3.5 ASSESSMENT/PLAN: Visit type - Emergency Visit Emergency Visit: Yes Care time: The patient presented to the Emergency Department on the above date and was hospitalized for further evaluation of their emergent condition. - New Patient This patient is new to me today: Yes Date on this admission: 02/27/17 - Critical Care Critical Care patient: No
--- NOTE | 2017-02-27 23:36 | HP ---
Admitting History and Physical - Primary Care Physician PCP: Lilli Swan I - Admission Chief Complaint: Syncope History of Present Illness: 66 y.o. M with pmh of HTN, HLD, DM, HIV in remission, CAD w/ residual neuropathy , CVA, Hepatitis A/B, vertigo and chronic back pain presented after a syncopal episode. Patient was walking in the street when he felt his head was heavy and fell on his face. He had LOC for 1 minute and then walked away. He states he has had feelings of lightheadedness 2-3x/week generally when he gets up fast or out of bed. He also endorses chest pain and SOB when walking up a hill for many years. Patient has a history of cardiac catheterization that revealed clean coronaries per patient. No stents have been placed. Limitations to Obtaining History: No Limitations - Past Medical History Additional Past Medical History: PER HPI - Past Surgical History Additional Past Surgical History: Cardiac catheterization - Smoking History Smoking history: Former smoker Have you smoked in the past 12 months: No Aproximately how many cigarettes per day: 3 If you are a former smoker, when did you quit?: 9 years ago - Alcohol/Substance Use Hx Alcohol Use: No History of Substance Use: reports: Marijuana Home Medications - Allergies Allergies/Adverse Reactions: Allergies Allergy/AdvReac Type Severity Reaction Status Date / Time No Known Allergies Allergy Verified 02/27/17 15:39 - Home Medications Home Medications: Ambulatory Orders Aspirin [ASA -] 81 mg PO DAILY #0 tab.chew 11/30/12 Lisinopril [Prinivil] 10 mg PO DAILY #0 tablet 11/30/12 Metformin HCl [Glucophage -] 500 mg PO BID #0 tablet 11/30/12 Metoprolol Tartrate [Lopressor -] 50 mg PO BID #14 tablet 11/30/12 Emtricitabine/Tenofovir [Truvada] 1 tab PO DAILY 02/27/17 Meclizine HCl 25 mg PO DAILY 02/27/17 Morphine Sulfate 15 mg PO BID 02/27/17 Omeprazole 20 mg PO DAILY 02/27/17 Oxycodone HCl 10 mg PO BID 02/27/17 Review of Systems - Review of Systems Constitutional: reports: No Symptoms Cardiovascular: reports: Chest Pain, Shortness of Breath Respiratory: reports: SOB on Exertion Genitourinary: reports: No Symptoms Breasts: reports: No Symptoms Reported Musculoskeletal: reports: Back Pain Integumentary: reports: Bruising Neurological: reports: Numbness (Lower extremities) Endocrine: reports: No Symptoms Hematology/Lymphatic: reports: No Symptoms Psychiatric: reports: No Symptoms Physical Examination Vital Signs: Vital Signs Temperature 98.1 F 02/27/17 20:42 Pulse Rate 67 02/27/17 20:42 Respiratory Rate 18 02/27/17 20:42 Blood Pressure 150/86 02/27/17 20:42 O2 Sat by Pulse Oximetry (%) 100 02/27/17 20:42 Constitutional: Yes: Well Nourished, No Distress, Calm Eyes: Yes: WNL, Conjunctiva Clear, EOM Intact HENT: Yes: WNL, Normocephalic, Other (Lip swelling) Neck: Yes: WNL, Supple, Trachea Midline Cardiovascular: Yes: WNL, Regular Rate and Rhythm, JVD, S1, S2 Respiratory: Yes: WNL, Regular, CTA Bilaterally Gastrointestinal: Yes: WNL, Normal Bowel Sounds, Soft Musculoskeletal: Yes: WNL Extremities: Yes: WNL, Other (Abrasions on elbows) Edema: No Peripheral Pulses WNL: Yes Peripheral Pulses: Left Radial: 1+, Right Radial: 1+ Neurological: Yes: WNL, Alert, Oriented Psychiatric: Yes: WNL, Alert, Oriented Labs: CBC, BMP 02/27/17 16:31 02/27/17 16:31 Imaging - Results Chest X-ray: Image Reviewed Cat Scan: Image Reviewed (head- negative chest- negative) EKG: Image Reviewed (nsr, q waves in septal leads) Assessment/Plan 66 year old M with multiple medical comorbidities presented with syncopal episode admitted for cardiac workup #Syncope, orthostatic vs cardiogenic vs vertigo -Check orthostatic vitals -Echocardiogram pending -Cardotid u/s pending -Trend troponins, negative x1 -Repeat EKG in am -Lipid panel pending -A1c pending -Cardiology consulted, Dr. Craig #HIV, remission -On Truvada 1 tab daily -Viral load undetectable per patient -Will obtain CD4 count -Patient's ID physician at [facility], will f/u outpatient #Right shoulder pain -Right shoulder x-ray pending -Continue home pain medication (morphine/oxycodone) #DM -Hold metformin -BGM achs -ISS achs #HTN -Continue lopressor 50 mg po bid -Continue lisinopril 10 mg po daily -obtain orthostatic vital signs #Vertigo -Continue meclizine 25 mg po daily #History of CVA -Continue aspirin 81 mg po daily #Chronic back pain -Continue home pain medication (morphine/oxycodone) #FEN/GI -No fluids -wnl -Sodium/diabetic diet #PPx -DVT- scds -GI- omeprazole 20 mg po daily #Dispo -Tele/obs -Pending cardiac workup Visit type - Emergency Visit Emergency Visit: Yes ED Registration Date: 02/27/17 Care time: The patient presented to the Emergency Department on the above date and was hospitalized for further evaluation of their emergent condition. - New Patient This patient is new to me today: Yes Date on this admission: 02/28/17 - Critical Care Critical Care patient: No
[2017-02-28] MEDS ORDERED: oxyCODONE HCL 5 MG TABLET ONE ×2 (00:27→09:52)
[2017-02-28] MEDS ORDERED: oxyCODONE HCL 5 MG TABLET PO ONE (00:30)
[2017-02-28 06:17] LABS: MCH 29.4 pg (25.7-33.7); MCHC 33.6 g/dl (32.0-35.9); MEAN CELL VOLUME 87.4 fl (80-96); PLATELET COUNT 177 K/MM3 (134-434); RDW 14.5 % (11.9-15.9); WHITE BLOOD COUNT 5.2 K/mm3 (4.0-10.0)
[2017-02-28 06:52] LABS: ALBUMIN 3.4 g/dl (3.4-5.0); ANION GAP 6 (8-16); CALCIUM 9.4 mg/dL (8.5-10.1); CO2 32 mmol/L (21-32); GLUCOSE,RANDOM 170 mg/dL (74-106); MAGNESIUM 1.6 mg/dL (1.8-2.4)
[2017-02-28 06:58] LABS: ALK PHOS 57 U/L (45-117); BILIRUBIN,TOTAL 0.6 mg/dL (0.2-1.0); CREATININE 1.1 mg/dL (0.7-1.3); PHOSPHOROUS 2.2 mg/dL (2.5-4.9); SGOT/AST 19 U/L (15-37); SGPT/ALT 23 U/L (12-78); TOT PROT 7.8 g/dl (6.4-8.2); TROPONIN I < 0.02 ng/ml (0.00-0.05)
[2017-02-28] MEDS: INSULIN SLIDING SCALE (NOVOLOG) 1 VIAL SQ SCH ×6 (08:29→21:55)
[2017-02-28] MEDS ORDERED: morphine SO4 SUSTAINED ACTING 15 MG TABLET.SA ONE (09:51)
[2017-02-28] MEDS: MECLIZINE HCL 25 MG TABLET (FP) PO SCH (09:56)
[2017-02-28] MEDS: METOPROLOL TARTRATE 50 MG TABLET (FP) PO SCH ×2 (09:56→21:46)
[2017-02-28] MEDS: ASPIRIN 81 MG CHEWABLE TABLETS PO SCH (09:56)
[2017-02-28] MEDS: LISINOPRIL 10 MG TABLET (FP) PO SCH (09:56)
[2017-02-28] MEDS: morphine SO4 SUSTAINED ACTING 15 MG TABLET.SA PO SCH ×2 (09:56→21:46)
[2017-02-28] MEDS: EMTRICITABINE 200MG/TENOFOVIR 300MG PO SCH (09:57)
[2017-02-28] MEDS: oxyCODONE HCL 5 MG TABLET PO SCH ×2 (09:57→21:47)
[2017-02-28] MEDS: PANTOPRAZOLE 20 MG TABLET (FP) PO SCH (10:00)
--- NOTE | 2017-02-28 15:58 | CON.CARD ---
Consult Consult Specialty:: cardiology Reason for Consultation:: syncope - History of Present Illness Chief Complaint: Pt A&Ox3; asymptomatic presently. History of Present Illness: The patient is a 66-year-old black male (b. [place]), with a significant past medical history of CAD (nonobstructive CAD on angiogram ?2012; 06/2013 stress MIBI showed moderate anterolateral area suspicious for ischemia; pt deferred going for coronary angiogram at that time), hypertension, hyperlipidemia, DM, HIV. who presents to ED for evaluation of dizziness s/p syncopal episode this morning while walking across the street. The patient reports feeling a "heaviness" in his head and a dizzy feeling for about an hour before falling onto his face while waiting to cross a street. He reports no knowledge of falling or how he got onto the fround, however, does remember feeling dizzy prior to waking up on the ground. THe reports noticing scrapes to his bilateral elbows and his upper lip. He states he laid on the ground for a few minutes, and was able to ambulate without assistance afterwards as he waited for ems. He reports experiencing a similar episode in the past which the patient attributes to vertigo. He denies chest pain, shortness of breath, headache. He denies fever, chills, nausea, vomit, diarrhea and constipation. He denies dysuria, frequency, urgency and hematuria. Pt does not own a car. He walks at least several blocks a day, and denies exertional chest pain; he is short of breath only if he walks up a long flight of stairs. Allergies: JC PCP - /Filiberto Swan [employer] - Dr. Mcgee - History Source History Provided By: Patient, Medical Record Limitations to Obtaining History: No Limitations - Past Medical History Cardio/Vascular: Yes: HTN, Hyperlipdemia Infectious Disease: Yes: HIV - Past Surgical History Additional Surgical History: coronary angiogram - Alcohol/Substance Use Hx Alcohol Use: No History of Substance Use: reports: Marijuana - Smoking History Smoking history: Former smoker Have you smoked in the past 12 months: No Aproximately how many cigarettes per day: 3 If you are a former smoker, when did you quit?: 9 years ago Home Medications - Allergies Allergies/Adverse Reactions: Allergies Allergy/AdvReac Type Severity Reaction Status Date / Time No Known Allergies Allergy Verified 02/27/17 15:39 - Home Medications Home Medications: Ambulatory Orders Aspirin [ASA -] 81 mg PO DAILY #0 tab.chew 11/30/12 Lisinopril [Prinivil] 10 mg PO DAILY #0 tablet 11/30/12 Metformin HCl [Glucophage -] 500 mg PO BID #0 tablet 11/30/12 Metoprolol Tartrate [Lopressor -] 50 mg PO BID #14 tablet 11/30/12 Emtricitabine/Tenofovir [Truvada] 1 tab PO DAILY 02/27/17 Meclizine HCl 25 mg PO DAILY 02/27/17 Morphine Sulfate 15 mg PO BID 02/27/17 Omeprazole 20 mg PO DAILY 02/27/17 Oxycodone HCl 10 mg PO BID 02/27/17 Family Disease History - Family Disease History Family History: Denies Review of Systems - Review of Systems Constitutional: reports: No Symptoms Eyes: reports: No Symptoms HENT: reports: No Symptoms Neck: reports: No Symptoms Cardiovascular: reports: No Symptoms Respiratory: reports: SOB on Exertion Gastrointestinal: reports: No Symptoms Genitourinary: reports: No Symptoms Breasts: reports: No Symptoms Reported Musculoskeletal: reports: No Symptoms Integumentary: reports: No Symptoms Neurological: reports: Syncope Endocrine: reports: No Symptoms Hematology/Lymphatic: reports: No Symptoms Psychiatric: reports: No Symptoms - Risk Factors Known Risk Factors: Yes: Age, Diabetes Mellitus, Gender, Hypercholesterolemia, Hypertension, Race Vital Signs: Vital Signs Temperature 97.8 F 02/28/17 14:22 Pulse Rate 67 02/28/17 14:22 Respiratory Rate 18 02/28/17 14:22 Blood Pressure 130/78 02/28/17 14:22 O2 Sat by Pulse Oximetry (%) 98 02/28/17 14:22 Constitutional: Yes: Calm Eyes: Yes: WNL HENT: Yes: WNL Neck: Yes: WNL Respiratory: Yes: WNL Gastrointestinal: Yes: WNL Renal/: No: Anuria Cardiovascular: Yes: WNL JVD: No Carotid Bruit: No PMI: Non-Displaced Heart Sounds: Yes: S1, S2 Musculoskeletal: Yes: WNL Extremities: Yes: WNL Edema: No Peripheral Pulses WNL: Yes Integumentary: Yes: WNL Neurological: Yes: WNL ...Motor Strength: WNL Psychiatric: Yes: WNL - Other Data Labs, Other Data: CBC, BMP 02/28/17 06:00 02/28/17 06:00 INR, PTT INR 1.05 (0.82-1.09) 02/27/17 16:31 Troponin, BNP 02/28/17 02/28/17 00:05 06:00 Troponin I < 0.02 < 0.02 Troponin, BNP 02/28/17 02/28/17 00:05 06:00 Troponin I < 0.02 < 0.02 Prior Cardiac Procedures: Cardiac Catheterization (non-obstructive CAD) Imaging - Results Chest X-ray: Image Reviewed (no acute pathology) EKG: Image Reviewed (sinus bradycardia; nonspecific T wave changes) Other: Image Reviewed (Telemetry: no arrhythmias or significant pauses) Problem List - Problems (1) Diabetes Code(s): E11.9 - TYPE 2 DIABETES MELLITUS WITHOUT COMPLICATIONS Qualifiers: Diabetes mellitus type: type 2 Diabetes mellitus complication status: with hyperglycemia 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 Avoid dehydration. ECHO for LVEF; r/o sites of thrombus. Carotid doppler: no significant findings. F/u prior cardiac workup; consider stress test (pt says last stress test was ? about 2 years ago). TSH TNI serially. lipids. Code(s): R55 - SYNCOPE AND COLLAPSE (3) Dehydration Code(s): E86.0 - DEHYDRATION (4) HTN (hypertension) Code(s): I10 - ESSENTIAL (PRIMARY) HYPERTENSION (5) Hyperlipidemia Code(s): E78.5 - HYPERLIPIDEMIA, UNSPECIFIED
[2017-02-28] MEDS ORDERED: ACETAMINOPHEN 325 MG TABLET (FP) PO PRN (16:02)
--- NOTE | 2017-02-28 17:18 | EKG ---
Test Reason : Blood Pressure : / mmHG Vent. Rate : 058 BPM Atrial Rate : 058 BPM P-R Int : 190 ms QRS Dur : 082 ms QT Int : 396 ms P-R-T Axes : 062 014 024 degrees QTc Int : 388 ms SINUS BRADYCARDIA NONSPECIFIC T WAVE ABNORMALITY ABNORMAL ECG WHEN COMPARED WITH ECG OF 27-FEB-2017 16:51, MINIMAL CRITERIA FOR SEPTAL INFARCT ARE NO LONGER PRESENT Confirmed by ANTHONY RUBIO MD ([id number]) on 02/28/2017 5:17:49 PM Referred By: SALAZAR CERVANTES DR Confirmed By:ANTHONY RUBIO MD
--- NOTE | 2017-02-28 17:19 | PN ---
Physical Exam: SUBJECTIVE: Patient seen and examined. He had a bout of dizziness and a hitching /stabbing feeling in his stomach (although he points to mid sternum). OBJECTIVE: Vital Signs Period Temp Pulse Resp BP Sys/Johnson Pulse Ox Last 24 Hr 97.7 F-97.8 F 57-75 18-20 130-167/60-106 96-100 PE: Gen: malaise Neuro: alert, awake, cn 2-12intact Pulm: CTAB CV: s1 s2 rrr no mrg Abd: s nt nd + bs Ext: warm, no edema Laboratory Results - last 24 hr 02/28/17 02/28/17 02/28/17 00:05 06:00 06:00 WBC 5.2 RBC 3.82 L Hgb 11.2 L Hct 33.3 L MCV 87.4 MCH 29.4 MCHC 33.6 RDW 14.5 Plt Count 177 MPV 8.0 Sodium 139 Potassium 4.1 Chloride 101 Carbon Dioxide 32 Anion Gap 6 L BUN 15 D Creatinine 1.1 Creat Clearance w eGFR > 60 POC Glucometer Random Glucose 170 H Hemoglobin A1c % Calcium 9.4 Phosphorus 2.2 L Magnesium 1.6 L Total Bilirubin 0.6 D AST 19 D ALT 23 Alkaline Phosphatase 57 Troponin I < 0.02 < 0.02 Total Protein 7.8 Albumin 3.4 02/28/17 02/28/17 02/28/17 00:05 06:00 06:00 Hemoglobin A1c % Troponin I < 0.02 < 0.02 Triglycerides Pending Cholesterol Pending Total LDL Cholesterol Pending HDL Cholesterol Pending 02/28/17 06:00 Hemoglobin A1c % 8.1 H D Troponin I Triglycerides Cholesterol Total LDL Cholesterol HDL Cholesterol Active Medications Generic Name Dose Route Start Last Admin Trade Name Freq PRN Reason Stop Dose Admin Acetaminophen 650 mg 02/28/17 16:02 Tylenol - PO Q4H PRN FEVER OR PAIN Aspirin 81 mg 02/28/17 10:00 02/28/17 09:56 Asa - PO 81 mg DAILY MANNY Administration Emtricitabine/Tenofovir 1 tab 02/28/17 10:00 02/28/17 09:57 Truvada PO 1 tab DAILY MANNY Administration Insulin Aspart 1 vial 02/28/17 17:18 Novolog Vial Sliding Scale - SQ ACHS [facility] Protocol Lisinopril 10 mg 02/28/17 10:00 02/28/17 09:56 Prinivil PO 10 mg DAILY MANNY Administration Meclizine HCl 25 mg 02/28/17 10:00 02/28/17 09:56 Antivert - PO 25 mg DAILY MANNY Administration Metoprolol Tartrate 50 mg 02/28/17 10:00 02/28/17 09:56 Lopressor - PO 50 mg BID MANNY Administration Morphine Sulfate 15 mg 02/28/17 10:00 02/28/17 09:56 Ms Contin - PO 15 mg BID MANNY Administration Oxycodone HCl 10 mg 02/28/17 10:00 02/28/17 09:57 Roxicodone - PO 10 mg BID MANNY Administration Pantoprazole Sodium 20 mg 02/28/17 10:00 02/28/17 10:00 Protonix - PO 20 mg DAILY MANNY Administration Assessment: 66 year old male with pmhx of HTN, HLD, DM, HIV in remission, CAD w / residual neuropathy, CVA, Hepatitis A/B, vertigo and chronic back pain admitted s/p syncopal episode with LOC x1 min. Plan: 1. Syncope, orthostatic vs cardiogenic vs vertigo - Per Cardiology pt failed to f/u re: repeat cath, will keep NPO for possible stress in AM - Obtain orthostatics - ECHO results pending - CD negative for stenosis - Serial trops x3 negative - Lipids pending - Stress test tomorrow 2. HIV, remission - Truvada 1 tab daily - Viral load undetectable per patient - CD4 count ordered - Patient's ID physician at [facility], will f/u outpatient 3. Right shoulder pain - XRay shows subcromial spurring - Ortho follow up as outpt - Pain meds as above 4. DM II - Hold metformin - Hgb a1c 8.1 - BGM, ISS, ACHS 5. HTN - Lopressor 50mg BID - Lisinopril 10mg 6. Vertigo - Meclizine 25 mg po daily 7. hx CVA - ASA 8. Chronic back pain -Continue MS contin/ oxycodone 9. Hypomagnesemia - Replete 2mg IV x1 - Mg ox 800mg x1 Visit type - Emergency Visit Emergency Visit: Yes ED Registration Date: 02/27/17 Care time: The patient presented to the Emergency Department on the above date and was hospitalized for further evaluation of their emergent condition. - New Patient This patient is new to me today: Yes Date on this admission: 02/28/17 - Critical Care Critical Care patient: No
[2017-02-28] MEDS ORDERED: MAGNESIUM SULF 50% (8.12 MEQ/2 ML-1 GM VIAL) IVPB ONE (17:21)
[2017-02-28] MEDS ORDERED: MAGNESIUM OXIDE 400 MG TABLET (FP) PO ONE (17:21)
--- NOTE | 2017-02-28 17:48 | EKG ---
Test Reason : Blood Pressure : / mmHG Vent. Rate : 069 BPM Atrial Rate : 069 BPM P-R Int : 194 ms QRS Dur : 078 ms QT Int : 370 ms P-R-T Axes : 054 -01 012 degrees QTc Int : 396 ms NORMAL SINUS RHYTHM POSSIBLE LEFT ATRIAL ENLARGEMENT LEFT VENTRICULAR HYPERTROPHY CANNOT RULE OUT SEPTAL INFARCT (CITED ON OR BEFORE 27-FEB-2017) ABNORMAL ECG WHEN COMPARED WITH ECG OF 04-OCT-2016 11:39, REPEAT EKG IF CLINICALLY INDICATED QUESTIONABLE CHANGE IN INITIAL FORCES OF SEPTAL LEADS Confirmed by ANTHONY RUBIO MD ([id number]) on 02/28/2017 5:47:56 PM Referred By: Confirmed By:ANTHONY RUBIO MD
[2017-02-28] MEDS: NAPH,MB-DB/K PH,MBDB POWDER PACKET PO SCH (21:48)
[2017-03-01] MEDS: INSULIN SLIDING SCALE (NOVOLOG) 1 VIAL SQ SCH ×4 (06:12→22:30)
[2017-03-01 07:18] LABS: BASOPHIL 0.4 % (0-2.0); MCH 28.7 pg (25.7-33.7); MCHC 33.2 g/dl (32.0-35.9); MEAN CELL VOLUME 86.5 fl (80-96); MEAN PLT VOLUME 7.4 fl (7.5-11.1); NEUTROPHILS 45.7 % (42.8-82.8); PLATELET COUNT 166 K/MM3 (134-434); RDW 14.6 % (11.9-15.9); WHITE BLOOD COUNT 4.7 K/mm3 (4.0-10.0)
[2017-03-01] MEDS ORDERED: PT OWN MED DRAWER 7, Y5N ONE (09:42)
[2017-03-01] MEDS ORDERED: DIPYRIDAMOLE STRESS TEST 50 MG in DEXTROSE 5%-WATER - 40 ML IVPB ONE (10:00)
--- NOTE | 2017-03-01 11:58 | PN ---
Progress Note, Physician History of Present Illness: The patient is a 66-year-old black male (. [place]), with a significant past medical history of CAD (nonobstructive CAD on angiogram ?2012; 06/2013 stress MIBI showed moderate anterolateral area suspicious for ischemia; pt deferred going for coronary angiogram at that time), hypertension, hyperlipidemia, DM, HIV. who presents to ED for evaluation of dizziness s/p syncopal episode this morning while walking across the street. The patient reports feeling a "heaviness" in his head and a dizzy feeling for about an hour before falling onto his face while waiting to cross a street. He reports no knowledge of falling or how he got onto the fround, however, does remember feeling dizzy prior to waking up on the ground. THe reports noticing scrapes to his bilateral elbows and his upper lip. He states he laid on the ground for a few minutes, and was able to ambulate without assistance afterwards as he waited for ems. He reports experiencing a similar episode in the past which the patient attributes to vertigo. He denies chest pain, shortness of breath, headache. He denies fever, chills, nausea, vomit, diarrhea and constipation. He denies dysuria, frequency, urgency and hematuria. Pt does not own a car. He walks at least several blocks a day, and denies exertional chest pain; he is short of breath only if he walks up a long flight of stairs. 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 Mcgee - Current Medication List Current Medications: Active Medications Acetaminophen (Tylenol -) 650 mg PO Q4H PRN PRN Reason: FEVER OR PAIN Last Admin: 02/28/17 18:04 Dose: 650 mg Aspirin (Asa -) 81 mg PO DAILY [facility] Last Admin: 02/28/17 09:56 Dose: 81 mg Emtricitabine/Tenofovir (Truvada) 1 tab PO DAILY [facility] Last Admin: 02/28/17 09:57 Dose: 1 tab Insulin Aspart (Novolog Vial Sliding Scale -) 1 vial SQ ACHS [facility] PRN Reason: Protocol Last Admin: 03/01/17 06:12 Dose: Not Given Lisinopril (Prinivil) 10 mg PO DAILY [facility] Last Admin: 02/28/17 09:56 Dose: 10 mg Meclizine HCl (Antivert -) 25 mg PO DAILY [facility] Last Admin: 02/28/17 09:56 Dose: 25 mg Metoprolol Tartrate (Lopressor -) 50 mg PO BID [facility] Last Admin: 02/28/17 21:46 Dose: 50 mg Morphine Sulfate (Ms Contin -) 15 mg PO BID [facility] Last Admin: 02/28/17 21:46 Dose: 15 mg Oxycodone HCl (Roxicodone -) 10 mg PO BID [facility] Last Admin: 02/28/17 21:47 Dose: 10 mg Pantoprazole Sodium (Protonix -) 20 mg PO DAILY [facility] Last Admin: 02/28/17 10:00 Dose: 20 mg Potassium Phos/Sodium Phos (Phos-Nak Packet -) 1 packet PO BID [facility] Last Admin: 02/28/17 21:48 Dose: 1 packet - Objective Vital Signs: Vital Signs Temperature 98.2 F 03/01/17 08:00 Pulse Rate 66 03/01/17 08:00 Respiratory Rate 14 03/01/17 08:00 Blood Pressure 158/96 03/01/17 08:00 O2 Sat by Pulse Oximetry (%) 98 02/28/17 20:26 Eyes: Yes: WNL, Conjunctiva Clear, EOM Intact HENT: Yes: WNL, Atraumatic, Normocephalic Neck: Yes: WNL, Supple, Trachea Midline Cardiovascular: Yes: WNL, Regular Rate and Rhythm Respiratory: Yes: WNL, Regular, CTA Bilaterally Gastrointestinal: Yes: WNL, Normal Bowel Sounds Genitourinary: Yes: WNL Musculoskeletal: Yes: WNL Extremities: Yes: WNL Edema: No Integumentary: Yes: WNL Neurological: Yes: WNL, Alert, Oriented ...Motor Strength: WNL Psychiatric: Yes: WNL Labs: CBC, BMP 03/01/17 06:00 INR, PTT INR 1.05 (0.82-1.09) 02/27/17 16:31 Assessment/Plan (1) Diabetes Code(s): E11.9 - TYPE 2 DIABETES MELLITUS WITHOUT COMPLICATIONS Qualifiers: Diabetes mellitus type: type 2 Diabetes mellitus complication status: with hyperglycemia Diabetes mellitus mcc insulin use: without mcc use Qualified Code(s): E11.65 - Type 2 diabetes mellitus with hyperglycemia; Z79.4 - [facility] (current) use of insulin (2) Syncope and collapse Assessment/Plan: orthostatic vital sign checks. Avoid dehydration. ECHO for LVEF; r/o sites of thrombus. Carotid doppler: no significant findings. MIBI stress test positive for IW ischemia, will need c. cath for further evaluation. will load with plavix. (3) Dehydration Code(s): E86.0 - DEHYDRATION (4) HTN (hypertension) Code(s): I10 - ESSENTIAL (PRIMARY) HYPERTENSION (5) Hyperlipidemia Code(s): E78.5 - HYPERLIPIDEMIA, UNSPECIFIED
[2017-03-01] MEDS ORDERED: CLOPIDOGREL BISULFATE 300 MG TABLET PO ONE (12:15)
[2017-03-01] MEDS: oxyCODONE HCL 5 MG TABLET PO SCH ×2 (12:21→22:30)
[2017-03-01] MEDS: morphine SO4 SUSTAINED ACTING 15 MG TABLET.SA PO SCH ×2 (12:21→22:29)
[2017-03-01] MEDS: ASPIRIN 81 MG CHEWABLE TABLETS PO SCH (12:23)
[2017-03-01] MEDS: MECLIZINE HCL 25 MG TABLET (FP) PO SCH (12:23)
[2017-03-01] MEDS: PANTOPRAZOLE 20 MG TABLET (FP) PO SCH (12:23)
[2017-03-01] MEDS: METOPROLOL TARTRATE 50 MG TABLET (FP) PO SCH ×2 (12:23→22:29)
[2017-03-01] MEDS: LISINOPRIL 10 MG TABLET (FP) PO SCH (12:23)
[2017-03-01] MEDS: NAPH,MB-DB/K PH,MBDB POWDER PACKET PO SCH ×2 (12:23→22:30)
[2017-03-01] MEDS: EMTRICITABINE 200MG/TENOFOVIR 300MG PO SCH (12:24)
[2017-03-01 13:14] LABS: ANION GAP 9 (8-16); CO2 28 mmol/L (21-32); CREATININE 0.9 mg/dL (0.7-1.3); GLUCOSE,RANDOM 135 mg/dL (74-106); MAGNESIUM 1.9 mg/dL (1.8-2.4)
--- NOTE | 2017-03-01 17:55 | PN ---
Physical Exam: SUBJECTIVE: Patient seen and examined after stress. He felt dizzy afterwards, but tolerated lunch and took his meds OBJECTIVE: Vital Signs Period Temp Pulse Resp BP Sys/Johnson Pulse Ox Last 24 Hr 97.7 F-98.5 F 63-70 14-20 110-158/62-96 98-98 PE Neuro: alert, awake, cn 2-12intact HEENT: upper lip hematoma Pulm: CTAB CV: s1 s2 rrr no mrg Abd: s nt nd + bs Ext: warm, no le edema Laboratory Results - last 24 hr 02/28/17 03/01/17 03/01/17 21:45 06:00 06:00 WBC 4.7 RBC 4.01 Hgb 11.5 L Hct 34.7 L MCV 86.5 MCH 28.7 MCHC 33.2 RDW 14.6 Plt Count 166 MPV 7.4 L Neutrophils % 45.7 Lymphocytes % 43.2 H Monocytes % 8.7 Eosinophils % 2.0 Basophils % 0.4 Sodium 141 Potassium 3.8 Chloride 104 Carbon Dioxide 28 Anion Gap 9 BUN 12 Creatinine 0.9 POC Glucometer 215 Random Glucose 135 H D Calcium 9.0 Magnesium 1.9 Active Medications Generic Name Dose Route Start Last Admin Trade Name Freq PRN Reason Stop Dose Admin Acetaminophen 650 mg 02/28/17 16:02 02/28/17 18:04 Tylenol - PO 650 mg Q4H PRN Administration FEVER OR PAIN Aspirin 81 mg 02/28/17 10:00 03/01/17 12:23 Asa - PO 81 mg DAILY [facility] Administration Clopidogrel Bisulfate 75 mg 03/02/17 10:00 Plavix - PO DAILY [facility] Emtricitabine/Tenofovir 1 tab 02/28/17 10:00 03/01/17 12:24 Truvada PO 1 tab DAILY [facility] Administration Insulin Aspart 1 vial 02/28/17 17:18 03/01/17 17:41 Novolog Vial Sliding Scale - SQ 4 units ACHS [facility] Administration Protocol Lisinopril 10 mg 02/28/17 10:00 03/01/17 12:23 Prinivil PO 10 mg DAILY [facility] Administration Meclizine HCl 25 mg 02/28/17 10:00 03/01/17 12:23 Antivert - PO 25 mg DAILY [facility] Administration Metoprolol Tartrate 50 mg 02/28/17 10:00 03/01/17 12:23 Lopressor - PO 50 mg BID [facility] Administration Morphine Sulfate 15 mg 02/28/17 10:00 03/01/17 12:21 Ms Contin - PO 15 mg BID [facility] Administration Oxycodone HCl 10 mg 02/28/17 10:00 03/01/17 12:21 Roxicodone - PO 10 mg BID [facility] Administration Pantoprazole Sodium 20 mg 02/28/17 10:00 03/01/17 12:23 Protonix - PO 20 mg DAILY [facility] Administration Potassium Phos/Sodium Phos 1 packet 02/28/17 22:00 03/01/17 12:23 Phos-Nak Packet - PO 1 packet BID [facility] Administration Assessment: 66 year old male with pmhx of HTN, HLD, DM, HIV in remission, CAD w / residual neuropathy, CVA, Hepatitis A/B, vertigo and chronic back pain admitted s/p syncopal episode with LOC x1 min. Plan: 1. Syncope, orthostatic vs cardiogenic vs vertigo - Stress positive IW ischemia - Loaded with plavix - Observe reaction to plavix - Will need cardiac cath, arrangement per cardiology - ECHO shows normal lv size fxn, rv normal, RVSP 29mm, mild MR - Serial trops x3 negative - Lipids pending 2. HIV, remission - Truvada 1 tab daily - Viral load undetectable per patient - CD4 count ordered - Patient's ID physician at [facility], will f/u outpatient 3. Right shoulder pain - XRay shows subcromial spurring - Ortho follow up as outpt - Pain meds as above 4. DM II - Hold metformin - Hgb a1c 8.1 - BGM, ISS, ACHS 5. HTN - Lopressor 50mg BID - Lisinopril 10mg 6. Vertigo - Meclizine 25mg po daily 7. hx CVA - ASA 8. Chronic back pain -Continue MS contin/Oxycodone 9. Hypomagnesemia - Resolved Visit type - Emergency Visit Emergency Visit: Yes ED Registration Date: 02/27/17 Care time: The patient presented to the Emergency Department on the above date and was hospitalized for further evaluation of their emergent condition. - New Patient This patient is new to me today: No - Critical Care Critical Care patient: No
[2017-03-02 04:29] LABS: THYROID STIMULATING HORMONE 0.43 uIU/ml (0.358-3.74)
[2017-03-02 05:54] LABS: CHOLESTEROL 161 mg/dL (50-200)
[2017-03-02] MEDS: INSULIN SLIDING SCALE (NOVOLOG) 1 VIAL SQ SCH ×4 (06:38→21:41)
[2017-03-02] MEDS: METOPROLOL TARTRATE 50 MG TABLET (FP) PO SCH ×2 (09:37→21:28)
[2017-03-02] MEDS: LISINOPRIL 10 MG TABLET (FP) PO SCH (09:37)
[2017-03-02] MEDS: morphine SO4 SUSTAINED ACTING 15 MG TABLET.SA PO SCH ×2 (09:37→21:29)
[2017-03-02] MEDS: PANTOPRAZOLE 20 MG TABLET (FP) PO SCH (09:37)
[2017-03-02] MEDS: ASPIRIN 81 MG CHEWABLE TABLETS PO SCH (09:38)
[2017-03-02] MEDS: oxyCODONE HCL 5 MG TABLET PO SCH ×2 (09:38→21:27)
[2017-03-02] MEDS: EMTRICITABINE 200MG/TENOFOVIR 300MG PO SCH (09:38)
[2017-03-02] MEDS: MECLIZINE HCL 25 MG TABLET (FP) PO SCH (09:38)
[2017-03-02] MEDS: NAPH,MB-DB/K PH,MBDB POWDER PACKET PO SCH ×2 (09:39→21:28)
[2017-03-02] MEDS ORDERED: CLOPIDOGREL BISULFATE 75 MG TABLET (FP) PO SCH (10:00)
--- NOTE | 2017-03-02 11:48 | PN ---
Progress Note, Physician History of Present Illness: The patient is a 66-year-old black male (. [place]), with a significant past medical history of CAD (nonobstructive CAD on angiogram ?2012; 06/2013 stress MIBI showed moderate anterolateral area suspicious for ischemia; pt deferred going for coronary angiogram at that time), hypertension, hyperlipidemia, DM, HIV. who presents to ED for evaluation of dizziness s/p syncopal episode this morning while walking across the street. The patient reports feeling a "heaviness" in his head and a dizzy feeling for about an hour before falling onto his face while waiting to cross a street. He reports no knowledge of falling or how he got onto the fround, however, does remember feeling dizzy prior to waking up on the ground. THe reports noticing scrapes to his bilateral elbows and his upper lip. He states he laid on the ground for a few minutes, and was able to ambulate without assistance afterwards as he waited for ems. He reports experiencing a similar episode in the past which the patient attributes to vertigo. He denies chest pain, shortness of breath, headache. He denies fever, chills, nausea, vomit, diarrhea and constipation. He denies dysuria, frequency, urgency and hematuria. Pt does not own a car. He walks at least several blocks a day, and denies exertional chest pain; he is short of breath only if he walks up a long flight of stairs. 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 Mcgee - Current Medication List Current Medications: Active Medications Acetaminophen (Tylenol -) 650 mg PO Q4H PRN PRN Reason: FEVER OR PAIN Last Admin: 02/28/17 18:04 Dose: 650 mg Aspirin (Asa -) 81 mg PO DAILY [facility] Last Admin: 03/02/17 09:38 Dose: 81 mg Clopidogrel Bisulfate (Plavix -) 75 mg PO DAILY [facility] Last Admin: 03/02/17 09:38 Dose: 75 mg Emtricitabine/Tenofovir (Truvada) 1 tab PO DAILY [facility] Last Admin: 03/02/17 09:38 Dose: 1 tab Insulin Aspart (Novolog Vial Sliding Scale -) 1 vial SQ ACHS [facility] PRN Reason: Protocol Last Admin: 03/02/17 06:38 Dose: Not Given Lisinopril (Prinivil) 10 mg PO DAILY [facility] Last Admin: 03/02/17 09:37 Dose: 10 mg Meclizine HCl (Antivert -) 25 mg PO DAILY [facility] Last Admin: 03/02/17 09:38 Dose: 25 mg Metoprolol Tartrate (Lopressor -) 50 mg PO BID [facility] Last Admin: 03/02/17 09:37 Dose: 50 mg Morphine Sulfate (Ms Contin -) 15 mg PO BID [facility] Last Admin: 03/02/17 09:37 Dose: 15 mg Oxycodone HCl (Roxicodone -) 10 mg PO BID [facility] Last Admin: 03/02/17 09:38 Dose: 10 mg Pantoprazole Sodium (Protonix -) 20 mg PO DAILY [facility] Last Admin: 03/02/17 09:37 Dose: 20 mg Potassium Phos/Sodium Phos (Phos-Nak Packet -) 1 packet PO BID [facility] Last Admin: 03/02/17 09:39 Dose: 1 packet - Objective Vital Signs: Vital Signs Temperature 98.2 F 03/02/17 08:10 Pulse Rate 72 03/02/17 08:10 Respiratory Rate 14 03/02/17 08:10 Blood Pressure 148/84 03/02/17 08:10 O2 Sat by Pulse Oximetry (%) 96 03/01/17 20:00 Labs: CBC, BMP 03/01/17 06:00 03/01/17 06:00 INR, PTT INR 1.05 (0.82-1.09) 02/27/17 16:31 Problem List - Problems (1) Diabetes Code(s): E11.9 - TYPE 2 DIABETES MELLITUS WITHOUT COMPLICATIONS Qualifiers: Diabetes mellitus type: type 2 Diabetes mellitus complication status: with hyperglycemia Diabetes mellitus nursing home insulin use: without ocean transportation intermediary use Qualified Code(s): E11.65 - Type 2 diabetes mellitus with hyperglycemia; Z79.4 - [facility] (current) use of insulin (2) Syncope and collapse Assessment/Plan: orthostatic vital sign checks. Avoid dehydration. ECHO for LVEF; r/o sites of thrombus. Carotid doppler: no significant findings. F/u prior cardiac workup; consider stress test (pt says last stress test was ? about 2 years ago). TSH TNI serially. lipids. Code(s): R55 - SYNCOPE AND COLLAPSE (3) Dehydration Code(s): E86.0 - DEHYDRATION (4) HTN (hypertension) Code(s): I10 - ESSENTIAL (PRIMARY) HYPERTENSION (5) Hyperlipidemia Code(s): E78.5 - HYPERLIPIDEMIA, UNSPECIFIED (6) Chest pain Assessment/Plan: Stress MIBI: moderate size, moderately intense inferior wall reversible lesion; suboptimal HR reached (test stopped due to pt developing anginal chest pain). Plan: coronary angiogram at [facility]. Code(s): R07.9 - CHEST PAIN, UNSPECIFIED
--- NOTE | 2017-03-02 13:31 | DS ---
Physical Exam: SUBJECTIVE: Patient seen and examined. He has LLE numbness, DVT doppler negative. Denies SOB, chest pain OBJECTIVE: Vital Signs Period Temp Pulse Resp BP Sys/Johnson Pulse Ox Last 24 Hr 98.0 F-99.0 F 62-72 14-20 132-171/72-96 96-96 PE Neuro: alert, awake, cn 2-12intact HEENT: upper lip hematoma Pulm: CTAB CV: s1 s2 rrr no mrg Abd: s nt nd + bs Ext: warm, no le edema Laboratory Results - last 24 hr 02/28/17 03/01/17 03/01/17 06:00 06:00 15:38 Sodium 141 Potassium 3.8 Chloride 104 Carbon Dioxide 28 Anion Gap 9 BUN 12 Creatinine 0.9 POC Glucometer 203 Random Glucose 135 H D Calcium 9.0 Magnesium 1.9 Triglycerides 100 D Cholesterol 161 D Total LDL Cholesterol 95 D HDL Cholesterol 51 D TSH 0.43 03/01/17 03/02/17 03/02/17 22:28 05:24 12:24 Sodium Potassium Chloride Carbon Dioxide Anion Gap BUN Creatinine POC Glucometer 138 133 143 Random Glucose Calcium Magnesium Triglycerides Cholesterol Total LDL Cholesterol HDL Cholesterol TSH HOSPITAL COURSE: Date of Admission:02/27/17 Date of Discharge: 03/02/17 Minutes to complete discharge: 37 Discharge Summary Reason For Visit: FALL SYNCOPE SWELLING LIP AND R ARM Current Active Problems Abrasion of arm, right (Acute) Chest pain (Acute) Diabetes (Acute) Fall (Acute) HTN (hypertension) (Acute) Hyperlipidemia (Acute) Swelling of upper lip (Acute) Syncope and collapse (Acute) Hospital Course: Initial Hospital Course: Briefly, this 66 year old male with pmh of HTN, HLD, DM, HIV in remission, CAD w / residual neuropathy, CVA, Hepatitis A/B, vertigo and chronic back pain presented after a syncopal episode. Patient was walking in the street when he felt his head was heavy and fell on his face. He had LOC for 1 minute and then walked away. He stated hes had feelings of lightheadedness 2-3x/week generally when he gets up fast or out of bed. He also endorses chest pain and SOB when walking up a hill for many years. Patient has a history of cardiac catheterization that revealed clean coronaries per patient. No stents have been placed. Subsequent Hospital Course/Progress Note/Transfer Summary: Assessment: 66 year old male with pmhx of HTN, HLD, DM, HIV in remission, CAD w / residual neuropathy, CVA, Hepatitis A/B, vertigo and chronic back pain admitted s/p syncopal episode with LOC x1 min. Plan: 1. Syncope, orthostatic vs cardiogenic vs vertigo - Stress positive IW ischemia, unable to compete exercise stress as pt incurred chest pain and had to stop - Loaded with plavix - Will need cardiac cath at [facility] - ECHO shows normal lv size fxn, rv normal, RVSP 29mm, mild MR - Serial trops x3 negative - Lipids wnl 2. HIV, remission - Truvada 1 tab daily - Viral load undetectable per patient - Patient's ID physician at [facility] f/u outpatient 3. Right shoulder pain - XRay shows subcromial spurring - Ortho follow up as outpt - Pain meds as above 4. DM II - Stop metformin - STart low dose glipizide - Hgb a1c 8.1 5. HTN - Lopressor 50mg BID - Lisinopril 10mg 6. Vertigo - Meclizine 25mg po daily 7. hx CVA - ASA 8. Chronic back pain -Continue MS contin/Oxycodone 9. Hypomagnesemia - Resolved 10. LLE numbness - negative for DVT Dispo: - Transfer to [facility] for Cardiac cath - To follow up with PCP Dr Swan upon discharge Condition: Stable - Instructions Diet, Activity, Other Instructions: Transfer to [facility] for Cardiac Cath Follow up with PCP when discharged from [facility] Referrals: Lilli Swan MD [Primary Care Provider] - Josafat Marcelo MD [Staff Physician] - - Home Medications Comprehensive Discharge Medication List: Ambulatory Orders Aspirin [ASA -] 81 mg PO DAILY #0 tab.chew 11/30/12 Lisinopril [Prinivil] 10 mg PO DAILY #0 tablet 11/30/12 Metoprolol Tartrate [Lopressor -] 50 mg PO BID #14 tablet 11/30/12 Emtricitabine/Tenofovir [Truvada -] 1 tab PO DAILY 02/27/17 Meclizine HCl 25 mg PO DAILY 02/27/17 Morphine Sulfate 15 mg PO BID 02/27/17 Omeprazole 20 mg PO DAILY 02/27/17 Oxycodone HCl 10 mg PO BID 02/27/17 Glipizide [Glipizide ER] 2.5 mg PO DAILY #30 tab.er.24 03/02/17 This patient is new to me today: No Emergency Visit: Yes ED Registration Date: 03/02/17 Care time: The patient presented to the Emergency Department on the above date and was hospitalized for further evaluation of their emergent condition. Critical Care patient: No - Discharge Referral Referred to [facility] Med [facility] No
[2017-03-02 20:59] VITALS: BP 146/80; PULSE 65; TEMP 98.4
== END 2017-03-02 22:00 | disposition short-term general hospital (02) | DRG 311 ==
LOC: JER 15:30 → JERBED 23:18 → J4W 02-28 15:28 → OBSVTOIN 03-02 14:32
PROVIDERS: ADMIT Internal Medicine; ATTEND Nurse Practitioner Acute Care
DX: I24.9 Acute ischemic heart disease, unspecified (principal); I85.00 Esophageal varices without bleeding; S40.811A Abrasion of right upper arm, initial encounter; I10 Essential (primary) hypertension; E78.5 Hyperlipidemia, unspecified; R00.0 Tachycardia, unspecified; R00.2 Palpitations; E11.65 Type 2 diabetes mellitus with hyperglycemia; R42 Dizziness and giddiness; I25.10 Atherosclerotic heart disease of native coronary artery without angina pectoris; M54.89 Other dorsalgia; F12.10 Cannabis abuse, uncomplicated; M25.511 Pain in right shoulder; E86.0 Dehydration; E83.39 Other disorders of phosphorus metabolism; E83.42 Hypomagnesemia; R07.89 Other chest pain; R55 Syncope and collapse; Z21 Asymptomatic human immunodeficiency virus [HIV] infection status; Z79.4 Long term (current) use of insulin; Z86.73 Personal history of transient ischemic attack (TIA), and cerebral infarction without residual deficits; Z87.891 Personal history of nicotine dependence; Z86.19 Personal history of other infectious and parasitic diseases; Y92.488 Other paved roadways as the place of occurrence of the external cause
CPT/HCPCS: 36415; 70450-TC; 71010-TC; 71250-TC; 73030-TC-RT; 78452-TC; 80048; 80053; 80061; 83036; 83721; 83735; 84100; 84443; 84484; 85025; 85027; 85610; 93005; 93010; 93017; 93306-TC; 93880-TC; 93971-TC; 99285-25; A9502; G0378

== ENCOUNTER 2017-03-16 01:14 | Emergency (ER) | payer OTHER ==
[2017-03-16 02:49] VITALS: BMI 31.8
--- NOTE | 2017-03-16 02:57 | PDOC ---
History of Present Illness - General History Source: Patient <Isaiah Carroll - Last Filed: 03/16/17 02:57> - General History Source: Patient Exam Limitations: No Limitations - History of Present Illness Initial Comments: 03/16/17 03:17 The patient is a 66 year old male, with a significant past medical history of HTN, HLD, DM, hx.of CVA, Hepatitis, HIV, Chronic foot pain who presents to the emergency department with one day history of abdominal pain. Patient states his pain begins in RUQ radiating to LUQ. Patient denies any associated GI symptoms. Patient denies any abdominal surgeries. Patient denies any recent illnesses or sick contacts. Note, patient recently had a cardiac surgery which included insertion of cardiac chip at another institution. He denies chest pain, headache or dizziness. He denies fever, chills, nausea, vomit, diarrhea or constipation. He denies dysuria, frequency, urgency or hematuria. Allergies: NKA Past surgical history: Cardiac surgery Social history: Former smoker PCP: Dr. Swan <Daiana Presley - Last Filed: 03/16/17 03:18> - General Chief Complaint: Pain Stated Complaint: PAIN Time Seen by Provider: 03/16/17 02:47 Past History - Past Medical History Anemia: No Asthma: No Cancer: No Cardiac Disorders: Yes (tachycardia, palpitations) CVA: Yes (2002 2010) COPD: No CHF: No Dementia: No Diabetes: Yes (PRE DIABETES) GI Disorders: Yes (HEP A, B, E, H. PYLORIS, ESOPHAGEAL VARICES, HYPERCALCEMIA) Disorders: Yes (frequency uses flomax) HTN: Yes Hypercholesterolemia: Yes Kidney Stones: Yes (BY HX) Liver Disease: Yes (hep a, b, c) Seizures: No Thyroid Disease: No - Surgical History Abdominal Surgery: No Appendectomy: No Cardiac Surgery: Yes (cardiac cath no stents) Cholecystectomy: (GALLSTONES) Lung Surgery: No Neurologic Surgery: No Orthopedic Surgery: No - Immunization History Immunization Up to Date: Yes - Suicide/Smoking/Psychosocial Hx Smoking Status: No Smoking History: Never smoked Years of Tobacco Use: 5 Have you smoked in the past 12 months: No Number of Cigarettes Smoked Daily: 3 If you are a former smoker, when did you quit?: 9 years ago Cigars Per Day: 0 Information on smoking cessation initiated: No Hx Alcohol Use: No Drug/Substance Use Hx: No Substance Use Type: Alcohol Hx Substance Use Treatment: No <Isaiah Carroll - Last Filed: 03/16/17 02:57> <Daiana Presley - Last Filed: 03/16/17 03:18> - Past Medical History Allergies/Adverse Reactions: Allergies Allergy/AdvReac Type Severity Reaction Status Date / Time No Known Allergies Allergy Verified 03/16/17 02:07 Home Medications: Ambulatory Orders Aspirin [ASA -] 81 mg PO DAILY #0 tab.chew 11/30/12 Lisinopril [Prinivil] 10 mg PO DAILY #0 tablet 11/30/12 Metoprolol Tartrate [Lopressor -] 50 mg PO BID #14 tablet 11/30/12 Emtricitabine/Tenofovir [Truvada -] 1 tab PO DAILY 02/27/17 Meclizine HCl 25 mg PO DAILY 02/27/17 Morphine Sulfate 15 mg PO BID 02/27/17 Omeprazole 20 mg PO DAILY 02/27/17 Oxycodone HCl 10 mg PO BID 02/27/17 Glipizide [Glipizide ER] 2.5 mg PO DAILY #30 tab.er.24 03/02/17 Review of Systems - Review of Systems Able to Perform ROS?: Yes Comments:: 03/16/17 03:18 GENERAL/CONSTITUTIONAL: No fever or chills. No weakness. HEAD, EYES, EARS, NOSE AND THROAT: No change in vision. No ear pain or discharge. No sore throat. GASTROINTESTINAL: +abdominal pain. No nausea, vomiting, diarrhea or constipation. GENITOURINARY: No dysuria, frequency, or change in urination. CARDIOVASCULAR: No chest pain or shortness of breath. RESPIRATORY: No cough, wheezing, or hemoptysis. MUSCULOSKELETAL: No joint or muscle swelling or pain. No neck or back pain. SKIN: No rash NEUROLOGIC: No headache, vertigo, loss of consciousness, or change in strength/ sensation. ENDOCRINE: No increased thirst. No abnormal weight change. HEMATOLOGIC/LYMPHATIC: No anemia, easy bleeding, or history of blood clots. ALLERGIC/IMMUNOLOGIC: No hives or skin allergy. <Daiana Presley - Last Filed: 03/16/17 03:18> *Physical Exam - Vital Signs Last Vital Signs Temp Pulse Resp BP Pulse Ox 99.6 F 83 14 167/98 96 03/16/17 02:07 03/16/17 02:07 03/16/17 02:07 03/16/17 02:07 03/16/17 02:07 <Isaiah Carroll - Last Filed: 03/16/17 02:57> - Vital Signs Last Vital Signs Temp Pulse Resp BP Pulse Ox 99.6 F 83 14 167/98 96 03/16/17 02:07 03/16/17 02:07 03/16/17 02:07 03/16/17 02:07 03/16/17 02:07 - Physical Exam Comments: 03/16/17 03:18 GENERAL: Awake, alert, and fully oriented, in no acute distress HEAD: No signs of trauma EYES: PERRLA, EOMI, sclera anicteric, conjunctiva clear ENT: Auricles normal inspection, hearing grossly normal, nares patent, oropharynx clear without exudates. Moist mucosa NECK: Normal ROM, supple, no lymphadenopathy, JVD, or masses LUNGS: Breath sounds equal, clear to auscultation bilaterally. No wheezes, and no crackles HEART: 3/6 holosystolic murmur. Regular rate and rhythm, normal S1 and S2, rubs or gallops ABDOMEN: Mild diffuse tenderness mostly to RUQ. Soft, normoactive bowel sounds. No guarding, no rebound. No masses EXTREMITIES: Normal range of motion, no edema. No clubbing or cyanosis. No cords, erythema, or tenderness NEUROLOGICAL: Cranial nerves II through XII grossly intact. Normal speech, normal gait SKIN: Warm, Dry, normal turgor, no rashes or lesions noted. <Daiana Presley - Last Filed: 03/16/17 03:18> *DC/Admit/Observation/Transfer - Attestations Scribe Attestion: 03/16/17 03:18 Documentation prepared by Daiana Presley, acting as medical or surgical instrument maker for Isaiah Carroll DO. <Daiana Presley - Last Filed: 03/16/17 03:18>
[2017-03-16] MEDS ORDERED: ONDANSETRON 4 MG/2 ML VIAL IVPUSH STA (02:58)
[2017-03-16] MEDS ORDERED: morphine CARPU-JECT 2 MG/1 ML DISP.SYRIN IVPUSH ONE (02:58)
[2017-03-16] MEDS ORDERED: SODIUM CHLORIDE 1,000 ML IV SCH (03:00)
[2017-03-16] MEDS ORDERED: morphine CARPU-JECT 4 MG/1 ML DISP.SYRIN ONE (03:03)
[2017-03-16] MEDS ORDERED: morphine CARPU-JECT 2 MG/1 ML DISP.SYRIN ONE (03:03)
[2017-03-16] MEDS ORDERED: ONDANSETRON 4 MG/2 ML VIAL ONE (03:03)
[2017-03-16 03:23] LABS: BASOPHIL 0.7 % (0-2.0); EOSINOPHIL 1.6 % (0-4.5); MCH 28.9 pg (25.7-33.7); MCHC 33.1 g/dl (32.0-35.9); MEAN CELL VOLUME 87.3 fl (80-96); MEAN PLT VOLUME 7.8 fl (7.5-11.1); NEUTROPHILS 66.5 % (42.8-82.8); PLATELET COUNT 214 K/MM3 (134-434); RDW 14.5 % (11.9-15.9); WHITE BLOOD COUNT 5.7 K/mm3 (4.0-10.0)
[2017-03-16 03:38] LABS: INR 1.13 (0.82-1.09); PROTHROMBIN TIME (PATIENT) 12.5 SEC (9.98-11.88)
[2017-03-16 03:47] LABS: ALBUMIN 3.4 g/dl (3.4-5.0); AMYLASE 40 U/L (25-115); ANION GAP 5 (8-16); BILIRUBIN,TOTAL 0.4 mg/dL (0.2-1.0); CALCIUM 9.5 mg/dL (8.5-10.1); CO2 28 mmol/L (21-32); CREATININE 1.1 mg/dL (0.7-1.3); GLUCOSE,RANDOM 156 mg/dL (74-106); MAGNESIUM 1.4 mg/dL (1.8-2.4); SGOT/AST 18 U/L (15-37); SGPT/ALT 25 U/L (12-78); TOT PROT 7.9 g/dl (6.4-8.2)
[2017-03-16 03:48] LABS: ALK PHOS 59 U/L (45-117); CPK 59 IU/L (39-308); TROPONIN I < 0.02 ng/ml (0.00-0.05)
[2017-03-16] MEDS ORDERED: FAMOTIDINE 20 MG/50 ML IVPB 20 MG in PREMIX 50 IVPB ONE (04:21)
[2017-03-16] MEDS ORDERED: FAMOTIDINE 20 MG/50 ML IVPB 50 ML IVPB ONE (04:21)
[2017-03-16 04:35] LABS: URINE APPEARANCE CLEAR; URINE BILIRUBIN NEGATIVE (NEGATIVE); URINE BLOOD NEGATIVE (NEGATIVE); URINE COLOR LTYELLOW; URINE GLUCOSE (UA) NEGATIVE (NEGATIVE); URINE KETONE NEGATIVE (NEGATIVE); URINE LEUK ESTERASE NEGATIVE (NEGATIVE); URINE NITRITE NEGATIVE (NEGATIVE); URINE PROTEIN 1+ (NEGATIVE); URINE UROBILINOGEN NEGATIVE mg/dL (0.2-1.0)
[2017-03-16 04:42] LABS: URINE RBC <1 /hpf (0-3); URINE WBC <1 /hpf (3-5)
[2017-03-16 08:38] VITALS: TEMP 97.7
[2017-03-16] MEDS ORDERED: MAGNESIUM OXIDE 400 MG TABLET (FP) PO ONE (09:02)
--- NOTE | 2017-03-16 09:05 | PDOC ---
*Physical Exam - Vital Signs Last Vital Signs Temp Pulse Resp BP Pulse Ox 97.7 F 76 14 116/66 95 03/16/17 07:45 03/16/17 07:45 03/16/17 02:07 03/16/17 07:45 03/16/17 07:45 ED Treatment Course - LABORATORY CBC & Chemistry Diagram: 03/16/17 03:14 03/16/17 03:14 - ADDITIONAL ORDERS Additional order review: Laboratory Results 03/16/17 03/16/17 03/16/17 04:25 03:14 03:14 PT with INR INR Sodium 138 Potassium 3.7 Chloride 105 Carbon Dioxide 28 Anion Gap 5 L BUN 16 D Creatinine 1.1 D Creat Clearance w eGFR > 60 Random Glucose 156 H Calcium 9.5 Magnesium 1.4 L D Total Bilirubin 0.4 D AST 18 ALT 25 Alkaline Phosphatase 59 Creatine Kinase 59 Troponin I < 0.02 Total Protein 7.9 Albumin 3.4 Total Amylase 40 Lipase 62 L Urine Color Ltyellow Urine Appearance Clear Urine pH 6.0 Ur Specific [place] 1.020 Urine Protein 1+ H Urine Glucose (UA) Negative Urine Ketones Negative Urine Blood Negative Urine Nitrite Negative Urine Bilirubin Negative Urine Urobilinogen Negative Urine RBC <1 Urine WBC <1 Blood Type O NEGATIVE Antibody Screen Negative 03/16/17 03:14 PT with INR 12.50 H INR 1.13 Sodium Potassium Chloride Carbon Dioxide Anion Gap BUN Creatinine Creat Clearance w eGFR Random Glucose Calcium Magnesium Total Bilirubin AST ALT Alkaline Phosphatase Creatine Kinase Troponin I Total Protein Albumin Total Amylase Lipase Urine Color Urine Appearance Urine pH Ur Specific [place] Urine Protein Urine Glucose (UA) Urine Ketones Urine Blood Urine Nitrite Urine Bilirubin Urine Urobilinogen Urine RBC Urine WBC Blood Type Antibody Screen 03/16/17 03:14 RBC 3.92 L MCV 87.3 MCHC 33.1 RDW 14.5 MPV 7.8 Neutrophils % 66.5 D Lymphocytes % 22.5 D Monocytes % 8.7 Eosinophils % 1.6 Basophils % 0.7 - Medications Given in the ED: ED Medications Discontinued Medications Generic Name Dose Route Start Last Admin Trade Name Freq PRN Reason Stop Dose Admin Diphenhydramine HCl 50 mg 03/16/17 03:21 03/16/17 03:23 Benadryl Injection - IVPB 03/16/17 03:22 50 mg ONCE ONE Administration Famotidine/Sodium Chloride 20 50 mls @ 100 mls/hr 03/16/17 04:21 03/16/17 04:30 mg/ Miscellaneous IVPB 03/16/17 04:50 100 mls/hr ONCE ONE Administration Morphine Sulfate 6 mg 03/16/17 02:58 03/16/17 03:17 Morphine Injection - IVPUSH 03/16/17 02:59 6 mg ONCE ONE Administration Ondansetron HCl 4 mg 03/16/17 02:58 03/16/17 03:21 Zofran Injection IVPUSH 03/16/17 02:59 4 mg ONCE STA Administration Medical Decision Making - Medical Decision Making 03/16/17 08:59 Sign-out received from outgoing Emergency Physician Dr. Carroll Pt interviewed and examined Ancillary studies reviewed Case discussed in detail with oncoming Emergency Physician including history, physical exam and ancillary studies. Vital Signs Temp Pulse Resp BP Pulse Ox 97.7 F 76 14 116/66 95 03/16/17 07:45 03/16/17 07:45 03/16/17 02:07 03/16/17 07:45 03/16/17 07:45 I have reevaluated the patient. The patient abdominal pain had improved. The blood work and CAT scan demonstrated no acute findings. Patient states that he has had these chronic pains for a while and stated that the reaction related to his diabetic neuropathy. He feels comfortable going home. I given him to come to the results. Incidentally, prior to my arrival to shift, the patient has had an IV injection to his right hand for IV contrast. The IV infiltrated and the patient has developed right hand swelling and edema. He is no neurological or vascular deficits but has discomfort in pain. An incident report was filed. I had wrapped the patient's right hand in an Gerardo wrap and instructed the patient elevate his hand and put ice. I discussed the physical exam findings, ancillary test results and final diagnoses with the patient. I answered all of the patient's questions. The patient was satisfied with the care received and felt comfortable with the discharge plan and treatment plan. The patient will call their primary care physician within 24 hours to arrange follow-up and will return to the Emergency Department with any new, persistant or worsening symptoms. 03/16/17 11:11 Received phone call from radiology. Imaging buckle and button maker demonstrated no findings. However, radiology here at [facility] finds right sided colitis. Pt has right sided colitis. I had called back the patient and he was informed of the results. Prescription of levaquin and flagyl ordered and sent to [place]. Pt verbalizes understanding and will take the antibiotics. *DC/Admit/Observation/Transfer Diagnosis at time of Disposition: Abdominal pain Qualifiers: Abdominal location: unspecified location Qualified Code(s): R10.9 - Unspecified abdominal pain - Discharge Dispostion Disposition: HOME Condition at time of disposition: Stable Admit: No - Referrals Referrals: Lilli Swan MD [Primary Care Provider] - - Patient Instructions Printed Discharge Instructions: DI for Abdominal Pain-Adult Additional Instructions: Take 650 mg tylenol every 4 hours as needed for pain. Your CAT scan of the abdomen pelvis that shows no acute findings. Please bring The results to doctors. Regarding her right hand, please use the Gerardo wrap for compression and elevate the right hand as much as possible. You may use ice for symptom control. It may take several days before the symptoms improve. - Post Discharge Activity
[2017-03-16] MEDS ORDERED: MAGNESIUM OXIDE 400 MG TABLET (FP) ONE (09:38)
[2017-03-16 09:50] VITALS: BP 159/90; PULSE 74
== END 2017-03-16 09:50 | disposition home or self-care (01) ==
LOC: JER 01:14
PROC: 3E033GC Introduction of Other Therapeutic Substance into Peripheral Vein, Percutaneous Approach (ICD-10-PCS; principal; 2017-03-16)
PROC: 3E033NZ Introduction of Analgesics, Hypnotics, Sedatives into Peripheral Vein, Percutaneous Approach (ICD-10-PCS; 2017-03-16)
PROC: 3E033GC Introduction of Other Therapeutic Substance into Peripheral Vein, Percutaneous Approach (ICD-10-PCS; 2017-03-16)
PROC: 3E033GC Introduction of Other Therapeutic Substance into Peripheral Vein, Percutaneous Approach (ICD-10-PCS; 2017-03-16)
DX: K52.9 Noninfective gastroenteritis and colitis, unspecified (principal); I10 Essential (primary) hypertension; E11.9 Type 2 diabetes mellitus without complications; Z79.84 Long term (current) use of oral hypoglycemic drugs; E78.00 Pure hypercholesterolemia, unspecified; Z21 Asymptomatic human immunodeficiency virus [HIV] infection status; Z95.5 Presence of coronary angioplasty implant and graft; Z86.73 Personal history of transient ischemic attack (TIA), and cerebral infarction without residual deficits; Z87.442 Personal history of urinary calculi; Z86.19 Personal history of other infectious and parasitic diseases; Z87.891 Personal history of nicotine dependence
CPT/HCPCS: 36415; 74177-TC; 80053; 81003; 81015; 82150; 83690; 83735; 84484; 85025; 85610; 86850; 86900; 86901; 99283-25

== ENCOUNTER 2018-08-01 10:29 | Inpatient (IN) | payer OTHER ==
--- NOTE | 2018-08-01 10:57 | PDOC ---
History of Present Illness <Lashaun Schwartz - Last Filed: 08/01/18 12:42> - History of Present Illness Initial Comments: 08/01/18 11:53 The patient is a 68-year-old male, with a past medical history of HTN, internal heart monitor (placed at [facility]), NIDDM, HIV with undetectable viral load, GERD, vertigo, who presents to the ED with nausea, vomiting, and elevated BS today. Patient states he was standing this morning and suddenly became nauseous/ weak and felt like he was going to fall. He was able to sit down and call his daughter who brought him to the ER. BS was noted to be 259 this morning and 289 while in the ER. He reports multiple episodes of vomiting but denies any blood in the emesis. States he has been vomiting what he has been eating. He is also complaining of diffuse abdominal pain and constipation. REports hx of similar sxs, but has not been diagnosed with anything. The patient denies any fever, chills, cough, or diarrhea. Denies any chest pain or shortness of breath. Denies any changes in urination. Allergies: NKA Social History: None reported. Surgical History: None reported. PCP: Dr. Swan <Jose Antonio Bains - Last Filed: 08/01/18 12:50> - General Chief Complaint: Blood Sugar Problem Stated Complaint: HIGH BLOOD PRESSURE Time Seen by Provider: 08/01/18 10:56 Past History <Lashaun Schwartz - Last Filed: 08/01/18 12:42> - Past Medical History Cardiac Disorders: Yes (internal heart monitor) COPD: No CHF: No Diabetes: Yes HTN: Yes - Immunization History Immunization Up to Date: Yes - Suicide/Smoking/Psychosocial Hx Smoking History: Never smoked Have you smoked in the past 12 months: No Hx Alcohol Use: No Drug/Substance Use Hx: No Substance Use Type: None <Jose Antonio Bains - Last Filed: 08/01/18 12:50> - Past Medical History Allergies/Adverse Reactions: Allergies Allergy/AdvReac Type Severity Reaction Status Date / Time No Known Allergies Allergy Verified 08/01/18 10:32 Home Medications: Ambulatory Orders Amlodipine Besylate 10 mg PO DAILY 10/21/17 Glipizide 10 mg PO BID 10/21/17 Lisinopril 10 mg PO DAILY 10/21/17 Metoprolol Tartrate 100 mg PO BID 10/21/17 Morphine [Morphine Sulfate] 15 mg PO BID 10/21/17 Naloxegol Oxalate [Movantik] 25 mg PO DAILY 10/21/17 Sitagliptin Phosphate [Januvia] 100 mg PO DAILY 10/21/17 oxyCODONE HCL [Roxicodone -] 10 mg PO BID 10/21/17 Azithromycin [Zithromax -] 250 mg PO UTDICT #6 tab 07/16/18 Meclizine HCl 50 mg PO BID #14 tablet 07/16/18 Review of Systems - Review of Systems Comments:: 08/01/18 11:55 GENERAL/CONSTITUTIONAL: (+)Weakness. No fever or chills. HEAD, EYES, EARS, NOSE AND THROAT: No change in vision. No ear pain or discharge. No sore throat. GASTROINTESTINAL: (+)abdominal pain, nausea, vomiting, constipation. No diarrhea. GENITOURINARY: No dysuria, frequency, or change in urination. CARDIOVASCULAR: No chest pain or shortness of breath. RESPIRATORY: No cough, wheezing, or hemoptysis. MUSCULOSKELETAL: No joint or muscle swelling or pain. No neck or back pain. SKIN: No rash NEUROLOGIC: No headache, vertigo, loss of consciousness, or change in strength/ sensation. ENDOCRINE: No increased thirst. No abnormal weight change. HEMATOLOGIC/LYMPHATIC: No anemia, easy bleeding, or history of blood clots. ALLERGIC/IMMUNOLOGIC: No hives or skin allergy. <Jose Antonio Bains - Last Filed: 08/01/18 12:50> *Physical Exam - Vital Signs Last Vital Signs Temp Pulse Resp BP Pulse Ox 98.2 F 91 H 20 163/97 98 08/01/18 10:32 08/01/18 10:32 08/01/18 10:32 08/01/18 10:32 08/01/18 10:32 <Lashaun Schwartz - Last Filed: 08/01/18 12:42> - Vital Signs Last Vital Signs Temp Pulse Resp BP Pulse Ox 98.2 F 91 H 20 163/97 98 08/01/18 10:32 08/01/18 10:32 08/01/18 10:32 08/01/18 10:32 08/01/18 10:32 - Physical Exam Comments: 08/01/18 11:56 GENERAL: Awake, alert, and fully oriented, in no acute distress EYES: PERRLA, EOMI, sclera anicteric, conjunctiva clear ENT: Hearing grossly normal, nares patent, oropharynx clear without exudates. Moist mucosa NECK: Normal ROM, supple, no lymphadenopathy, +JVD LUNGS: Breath sounds equal, clear to auscultation bilaterally. No wheezes, and no crackles HEART: Regular rate and rhythm, normal S1 and S2, no murmurs, rubs or gallops ABDOMEN: Soft, nontender, normoactive bowel sounds. No guarding, no rebound. No masses EXTREMITIES: Normal range of motion, no edema. No cords, erythema, or tenderness BACK: No midline spinal tenderness in cervical/thoracic/lumbar region NEUROLOGICAL: Normal speech, cranial nerves intact, equal strength and sensation b/l SKIN: Warm, Dry, normal turgor, no rashes or lesions noted. <Jose Antonio Bains - Last Filed: 08/01/18 12:50> Moderate Sedation - Procedure Monitoring Vital Signs: Procedure Monitoring Vital Signs Temperature 98.2 F 08/01/18 10:32 Pulse Rate 91 H 08/01/18 10:32 Respiratory Rate 20 08/01/18 10:32 Blood Pressure 163/97 08/01/18 10:32 O2 Sat by Pulse Oximetry (%) 98 08/01/18 10:32 <Lashaun Schwartz - Last Filed: 08/01/18 12:42> - Procedure Monitoring Vital Signs: Procedure Monitoring Vital Signs Temperature 98.2 F 08/01/18 10:32 Pulse Rate 91 H 08/01/18 10:32 Respiratory Rate 20 08/01/18 10:32 Blood Pressure 163/97 08/01/18 10:32 O2 Sat by Pulse Oximetry (%) 98 08/01/18 10:32 <Jose Antonio Bains - Last Filed: 08/01/18 12:50> Heart Score/ECG Review #1 08/01/18 11:57 Twelve-lead EKG was performed and reviewed by me. Normal sinus rhythm, rate 85. Normal axis. No ST elevations <Jose Antonio Bains - Last Filed: 08/01/18 12:50> ED Treatment Course - LABORATORY CBC & Chemistry Diagram: 08/01/18 11:33 08/01/18 11:39 - ADDITIONAL ORDERS Additional order review: Laboratory Results 08/01/18 08/01/18 08/01/18 11:39 11:39 11:33 VBG pH 7.40 POC VBG pCO2 42.8 POC VBG pO2 68.2 H Mixed VBG HCO3 25.7 H Sodium 132 L Potassium 3.9 Chloride 98 Carbon Dioxide 27 Anion Gap 7 L BUN 15 Creatinine 1.0 Creat Clearance w eGFR > 60 POC Glucometer Random Glucose 282 H Calcium 9.2 Total Bilirubin 0.4 AST 19 ALT 29 Alkaline Phosphatase 79 Troponin I < 0.02 B-Natriuretic Peptide 13.2 Total Protein 8.2 Albumin 3.5 Lipase 116 08/01/18 08/01/18 11:33 11:05 VBG pH POC VBG pCO2 POC VBG pO2 Mixed VBG HCO3 Sodium Potassium Chloride Carbon Dioxide Anion Gap BUN Creatinine Creat Clearance w eGFR POC Glucometer 289 Random Glucose Calcium Total Bilirubin AST ALT Alkaline Phosphatase Troponin I B-Natriuretic Peptide Total Protein Albumin Lipase Cancelled 08/01/18 08/01/18 11:33 11:05 RBC 4.29 MCV 85.9 MCHC 34.8 RDW 14.5 MPV 7.8 Neutrophils % 58.6 D Lymphocytes % 30.6 D Monocytes % 8.5 Eosinophils % 1.8 Basophils % 0.5 POC Glucometer 289 - RADIOLOGY Radiology Studies Ordered: 08/01/18 12:42 Chest X-Ray was reviewed by Dr. Bains and over-read by Radiology. Impression: No active pulmonary disease. - Medications Given in the ED: ED Medications Discontinued Medications Generic Name Dose Route Start Last Admin Trade Name Freq PRN Reason Stop Dose Admin Metoclopramide HCl 10 mg 08/01/18 11:13 08/01/18 11:39 Reglan Injection - IVPB 08/01/18 11:14 10 mg ONCE ONE Administration Sodium Chloride 500 ml 08/01/18 11:12 08/01/18 11:38 Normal Saline - IV 08/01/18 11:13 500 ml ONCE ONE Administration <Lashaun Schwartz - Last Filed: 08/01/18 12:42> - LABORATORY CBC & Chemistry Diagram: 08/01/18 11:33 08/01/18 11:39 <Jose Antonio Bains - Last Filed: 08/01/18 12:50> Medical Decision Making - Medical Decision Making 08/01/18 12:39 Dr. Swan was paged and notified via phone service. <EfrenLashaun - Last Filed: 08/01/18 12:42> - Medical Decision Making 08/01/18 11:57 68yo M with MMP including IDDM presents to the ED with PO intolerance for 3 days , with NBNB emesis as well as pre-syncopal episode this AM. Vitals with elevated BP, but no other abnormalities. Exam with JVD, otherwise non focal. DDx includes but not limited to dehydration vs DKA vs metabolic disarray vs cardiac ischemia. Plan -labs -tele monitor -CXR -admit 08/01/18 12:48 W/u with mild hyponatremia Pt w persistent nausea -> reglan and fluids with mild improvement Case discussed with [employer]OUR SANDER Melony (Dr. Swan's CONTOUR SANDER), pt to be admitted to tele obs for pre-syncope and PO intolerance Case discussed in detail with admitting physician including history, physical exam and ancillary studies. Admitting physician has assumed care for the patient, will follow all pending diagnostics and will complete the evaluation and treatment. <Jose Antonio Bains - Last Filed: 08/01/18 12:50> *DC/Admit/Observation/Transfer <EfrenLashaun - Last Filed: 08/01/18 12:42> - Discharge Dispostion Decision to Admit order: Yes - Attestations Physician Attestion: 08/01/18 12:50 I, Dr. Jose Antonio Bains MD, attest that this document has been prepared under my direction and personally reviewed by me in its entirety. I further attest, that it accurately reflects all work, treatment, procedures and medical decision -making performed by me. <Jose Antonio Bains - Last Filed: 08/01/18 12:50> Diagnosis at time of Disposition: Nausea, Vomiting, Pre-syncope - Discharge Dispostion Condition at time of disposition: Stable
[2018-08-01] MEDS ORDERED: SODIUM CHLORIDE 0.9% 1000 ML INFUS.BAG IV ONE (11:12)
[2018-08-01] MEDS ORDERED: METOCLOPRAMIDE HCL INJECTION 10 MG/2 ML VIAL IVPB ONE (11:13)
[2018-08-01] MEDS ORDERED: METOCLOPRAMIDE HCL INJECTION 10 MG/2 ML VIAL ONE (11:25)
[2018-08-01 11:45] LABS: VENOUS PC02 42.8 mmHg (38-52); VENOUS PH 7.4 (7.32-7.42); VENOUS PO2 68.2 mmHg (28-48)
[2018-08-01 12:14] LABS: ALBUMIN 3.5 g/dl (3.4-5.0); ALK PHOS 79 U/L (45-117); ANION GAP 7 MMOL/L (8-16); BILIRUBIN,TOTAL 0.4 mg/dL (0.2-1); BLOOD UREA NITROGEN 15 mg/dL (7-18); CALCIUM 9.2 mg/dL (8.5-10.1); CHLORIDE 98 mmol/L (98-107); CO2 27 mmol/L (21-32); GLUCOSE,RANDOM 282 mg/dL (74-106); LIPASE 116 U/L (73-393); N-TERMINAL BNP 13.2 pg/ml (5-125); POTASSIUM 3.9 mmol/L (3.5-5.1); SGOT/AST 19 U/L (15-37); SGPT/ALT 29 U/L (13-61); SODIUM 132 mmol/L (136-145); TOT PROT 8.2 g/dl (6.4-8.2)
[2018-08-01 12:15] LABS: BASO % 0.5 % (0-2.0); EOS % 1.8 % (0-4.5); HEMATOCRIT 36.9 % (35.4-49); HEMOGLOBIN 12.8 GM/dL (11.7-16.9); LYMPH % 30.6 % (8-40); MCH 29.9 pg (25.7-33.7); MCHC 34.8 g/dl (32.0-35.9); MEAN CELL VOLUME 85.9 fl (80-96); MEAN PLT VOLUME 7.8 fl (7.5-11.1); MONO % 8.5 % (3.8-10.2); NEUT % 58.6 % (42.8-82.8); PLATELET COUNT 203 K/MM3 (134-434); RBC 4.29 M/mm3 (4.00-5.60); RDW 14.5 % (11.9-15.9); WHITE BLOOD COUNT 5.6 K/mm3 (4.0-10.0)
[2018-08-01 13:23] LABS: URINE APPEARANCE CLEAR; URINE BILIRUBIN NEGATIVE (<2.0 mg/dL); URINE COLOR LTYELLOW; URINE GLUCOSE (UA) 3+ (NEGATIVE); URINE KETONE NEGATIVE (NEGATIVE); URINE LEUK ESTERASE NEGATIVE (NEGATIVE); URINE NITRITE NEGATIVE (NEGATIVE); URINE PROTEIN 2+ (NEGATIVE); URINE UROBILINOGEN NEGATIVE mg/dL (0.2-1.0)
--- NOTE | 2018-08-01 13:48 | EKG ---
Test Reason : Blood Pressure : / mmHG Vent. Rate : 085 BPM Atrial Rate : 085 BPM P-R Int : 190 ms QRS Dur : 090 ms QT Int : 368 ms P-R-T Axes : 065 -19 005 degrees QTc Int : 437 ms NORMAL SINUS RHYTHM POSSIBLE LEFT ATRIAL ENLARGEMENT BORDERLINE ECG WHEN COMPARED WITH ECG OF 16-JUL-2018 11:43, NONSPECIFIC T WAVE ABNORMALITY, IMPROVED IN INFERIOR LEADS QT HAS LENGTHENED Confirmed by TED LAZAR, NURYS ([id number]) on 08/01/2018 1:47:43 PM Referred By: Confirmed By:NURYS JEAN MD
[2018-08-01] MEDS ORDERED: ONDANSETRON 4 MG/2 ML VIAL IVPUSH ONE (14:27)
--- NOTE | 2018-08-01 15:36 | HP ---
Admitting History and Physical - Admission History of Present Illness: The patient is a 68-year-old male, with a past medical history of HTN, internal heart monitor (placed at [facility]), NIDDM, HIV with undetectable viral load, GERD, vertigo, who presents to the ED with nausea, vomiting, and elevated BS today. Patient states he was standing this morning and suddenly became nauseous/ weak and felt like he was going to fall. He was able to sit down and call his daughter who brought him to the ER. BS was noted to be 259 this morning and 289 while in the ER. He reports multiple episodes of vomiting but denies any blood in the emesis. States he has been vomiting what he has been eating. He is also complaining of diffuse abdominal pain and constipation. REports hx of similar sxs, but has not been diagnosed with anything. The patient denies any fever, chills, cough, or diarrhea. Denies any chest pain or shortness of breath. Denies any changes in urination. History Source: Patient Limitations to Obtaining History: No Limitations - Past Medical History Cardiovascular: Yes: CAD, HTN Gastrointestinal: Yes: Constipation, Diverticulosis, GERD Infectious Disease: Yes: HIV Musculoskeletal: Yes: Chronic low back pain - Smoking History Smoking history: Never smoked Have you smoked in the past 12 months: No - Alcohol/Substance Use Hx Alcohol Use: No - Social History Usual Living Arrangement: Yes: Alone ADL: Independent History of Recent Travel: No Home Medications - Allergies Allergies/Adverse Reactions: Allergies Allergy/AdvReac Type Severity Reaction Status Date / Time No Known Allergies Allergy Verified 08/01/18 10:32 - Home Medications Home Medications: Ambulatory Orders Amlodipine Besylate 10 mg PO DAILY 10/21/17 Glipizide 10 mg PO BID 10/21/17 Lisinopril 10 mg PO DAILY 10/21/17 Metoprolol Tartrate 100 mg PO BID 10/21/17 Morphine [Morphine Sulfate] 15 mg PO BID 10/21/17 Naloxegol Oxalate [Movantik] 25 mg PO DAILY 10/21/17 Sitagliptin Phosphate [Januvia] 100 mg PO DAILY 10/21/17 oxyCODONE HCL [Roxicodone -] 10 mg PO BID 10/21/17 Azithromycin [Zithromax -] 250 mg PO UTDICT #6 tab 07/16/18 Meclizine HCl 50 mg PO BID #14 tablet 07/16/18 Review of Systems - Review of Systems Constitutional: reports: Loss of Appetite, Weakness Eyes: reports: No Symptoms HENT: reports: No Symptoms. denies: Difficult Swallowing Neck: reports: No Symptoms Cardiovascular: reports: No Symptoms. denies: Chest Pain, Palpitations Respiratory: reports: No Symptoms Gastrointestinal: reports: Abdominal Pain, Constipation. denies: Diarrhea, Vomiting Genitourinary: reports: No Symptoms Breasts: reports: No Symptoms Reported Musculoskeletal: reports: No Symptoms Integumentary: reports: No Symptoms Neurological: reports: No Symptoms Endocrine: reports: No Symptoms Hematology/Lymphatic: reports: No Symptoms Psychiatric: reports: No Symptoms Physical Examination Vital Signs: Vital Signs Temperature 98.2 F 08/01/18 10:32 Pulse Rate 72 08/01/18 13:29 Respiratory Rate 18 08/01/18 13:29 Blood Pressure 141/86 08/01/18 13:29 O2 Sat by Pulse Oximetry (%) 100 08/01/18 13:29 Findings/Remarks: seen in ER denies pain no Nausea / vomiting / diarrhea Constitutional: Yes: Well Nourished, No Distress, Mild Distress Eyes: Yes: Conjunctiva Clear, EOM Intact HENT: Yes: Atraumatic, Normocephalic Neck: Yes: Supple, Trachea Midline Cardiovascular: Yes: Regular Rate and Rhythm Respiratory: Yes: CTA Bilaterally. No: Accessory Muscle Use, Cough Gastrointestinal: Yes: Soft, Tenderness (left upper and lower quadrant / + guarding) ...Rectal Exam: Yes: Deferred Renal/: No: Bladder Distention, CVA Tenderness - Left, CVA Tenderness - Right Breast(s): Yes: WNL Musculoskeletal: Yes: WNL Extremities: No: Deformity Edema: No Peripheral Pulses WNL: Yes Integumentary: Yes: WNL Neurological: Yes: Alert, Oriented ...Motor Strength: WNL Psychiatric: Yes: Alert, Oriented Labs: CBC, BMP 08/01/18 11:33 08/01/18 11:39 Problem List - Problems (1) Diabetes mellitus Code(s): E11.9 - TYPE 2 DIABETES MELLITUS WITHOUT COMPLICATIONS (2) Hypertension Code(s): I10 - ESSENTIAL (PRIMARY) HYPERTENSION (3) Nausea Code(s): R11.0 - NAUSEA (4) Pre-syncope Code(s): R55 - SYNCOPE AND COLLAPSE (5) Abdominal pain Code(s): R10.9 - UNSPECIFIED ABDOMINAL PAIN (6) Dizziness Code(s): R42 - DIZZINESS AND GIDDINESS (7) Lightheadedness Code(s): R42 - DIZZINESS AND GIDDINESS
[2018-08-01] MEDS ORDERED: METOPROLOL TARTRATE 50 MG TABLET (FP) ONE (18:28)
[2018-08-01] MEDS ORDERED: morphine SO4 SUSTAINED ACTING 15 MG TABLET.SA ONE (18:28)
[2018-08-01] MEDS: morphine SO4 SUSTAINED ACTING 15 MG TABLET.SA PO SCH ×2 (18:29→21:53)
[2018-08-01] MEDS: METOPROLOL TARTRATE 50 MG TABLET (FP) PO SCH ×2 (18:29→21:53)
[2018-08-01] MEDS: oxyCODONE HCL 5 MG TABLET PO SCH (22:34)
[2018-08-02 01:27] VITALS: BMI 31.1
[2018-08-02] MEDS: sitaGLIPtin PHOSPHATE 100 MG TABLET (FP) PO SCH (06:45)
[2018-08-02 08:10] LABS: HEMATOCRIT 35.4 % (35.4-49); HEMOGLOBIN 12.2 GM/dL (11.7-16.9); MCHC 34.6 g/dl (32.0-35.9); MEAN CELL VOLUME 86.9 fl (80-96); MEAN PLT VOLUME 7.5 fl (7.5-11.1); PLATELET COUNT 189 K/MM3 (134-434); RBC 4.07 M/mm3 (4.00-5.60); RDW 14.4 % (11.9-15.9); WHITE BLOOD COUNT 5.9 K/mm3 (4.0-10.0)
[2018-08-02 08:52] LABS: AMYLASE 63 U/L (25-115); LIPASE 170 U/L (73-393)
[2018-08-02 09:04] LABS: ALBUMIN 3.4 g/dl (3.4-5.0); ALK PHOS 67 U/L (45-117); ANION GAP 6 MMOL/L (8-16); BILIRUBIN,TOTAL 0.4 mg/dL (0.2-1); BLOOD UREA NITROGEN 16 mg/dL (7-18); CALCIUM 9.4 mg/dL (8.5-10.1); CHLORIDE 100 mmol/L (98-107); CHOLESTEROL 220 mg/dL (50-200); CO2 29 mmol/L (21-32); CREATININE 0.9 mg/dL (0.55-1.3); GLUCOSE,RANDOM 193 mg/dL (74-106); HDL CHOLESTEROL 56 mg/dL (40-60); SGOT/AST 16 U/L (15-37); SGPT/ALT 28 U/L (13-61); SODIUM 135 mmol/L (136-145); TOT PROT 7.7 g/dl (6.4-8.2); TRIGLYCERIDES 171 mg/dL (0-150)
[2018-08-02] MEDS: oxyCODONE HCL 5 MG TABLET PO SCH ×2 (09:25→21:17)
[2018-08-02] MEDS: LISINOPRIL 10 MG TABLET (FP) PO SCH (09:25)
[2018-08-02] MEDS: METOPROLOL TARTRATE 50 MG TABLET (FP) PO SCH ×2 (09:25→21:17)
[2018-08-02] MEDS: amLODIPine BESYLATE 10 MG TABLET (FP) PO SCH (09:25)
[2018-08-02] MEDS ORDERED: PATIENT'S OWN MEDICATION (NON-FORMULARY) (Naloxegol Oxalate [Movantik] 25 MG) PO SCH (10:00)
--- NOTE | 2018-08-02 11:39 | CON.CARD ---
Cardiology Consult (text) - Consultation Consultation Note: cc: presyncope hpi: 68 m hx htn, dm, hiv, here with presyncope. Has chronic n/v, worse yesterday, and felt very weak. Was standing and felt like he was going to pass out so he sat down and sxs past, no loc. No cp sob palps loc pnd orthopnea, le edema. pmh: per hpi psh: nc social: no tob fam: no premature cad, scd ros: per hpi; no fever cough gib hematuria dysuria epistaxis meds: Home Medications Medication Instructions Recorded Aspirin [ASA -] 81 mg PO DAILY #0 tab.chew 11/30/12 Lisinopril [Prinivil] 10 mg PO DAILY #0 tablet 11/30/12 Metoprolol Tartrate [Lopressor -] 50 mg PO BID #14 tablet 11/30/12 Emtricitabine/Tenofovir [Truvada -] 1 tab PO DAILY 02/27/17 Meclizine HCl 25 mg PO DAILY 02/27/17 Morphine Sulfate 15 mg PO BID 02/27/17 Omeprazole 20 mg PO DAILY 02/27/17 Oxycodone HCl 10 mg PO BID 02/27/17 Glipizide [Glipizide ER] 2.5 mg PO DAILY #30 tab.er.24 03/02/17 Levofloxacin [Levaquin] 500 mg PO DAILY #10 tablet 03/16/17 metroNIDAZOLE [Flagyl -] 500 mg PO Q8H #30 tablet 03/16/17 Amlodipine Besylate 10 mg PO DAILY 10/21/17 Glipizide 10 mg PO BID 10/21/17 Lisinopril 10 mg PO DAILY 10/21/17 Metoprolol Tartrate 100 mg PO BID 10/21/17 Morphine [Morphine Sulfate] 15 mg PO BID 10/21/17 Naloxegol Oxalate [Movantik] 25 mg PO DAILY 10/21/17 Sitagliptin Phosphate [Januvia] 100 mg PO DAILY 10/21/17 oxyCODONE HCL [Roxicodone -] 10 mg PO BID 10/21/17 Azithromycin [Zithromax -] 250 mg PO UTDICT #6 tab 07/16/18 Meclizine HCl 50 mg PO BID #14 tablet 07/16/18 pe: Vital Signs Period Temp Pulse Resp BP Sys/Johnson Pulse Ox Last 24 Hr 98 F-98.3 F 70-80 16-18 128-152/71-98 97-100 nad no jvd rrr s1s2 no mrg cta bl nl eff aaox3 no le e/c/c abd nt nd pos bs no jaundice diaphoresis pos dp pt no carotid bruits Laboratory Last Values WBC 5.9 K/mm3 (4.0-10.0) 08/02/18 07:05 RBC 4.07 M/mm3 (4.00-5.60) 08/02/18 07:05 Hgb 12.2 GM/dL (11.7-16.9) 08/02/18 07:05 Hct 35.4 % (35.4-49) 08/02/18 07:05 MCV 86.9 fl (80-96) 08/02/18 07:05 MCH 30.0 pg (25.7-33.7) 08/02/18 07:05 MCHC 34.6 g/dl (32.0-35.9) 08/02/18 07:05 RDW 14.4 % (11.9-15.9) 08/02/18 07:05 Plt Count 189 K/MM3 (134-434) 08/02/18 07:05 MPV 7.5 fl (7.5-11.1) 08/02/18 07:05 Absolute Neuts (auto) 3.3 K/mm3 (1.5-8.0) 08/01/18 11:33 Neutrophils % 58.6 % (42.8-82.8) D 08/01/18 11:33 Lymphocytes % 30.6 % (8-40) D 08/01/18 11:33 Monocytes % 8.5 % (3.8-10.2) 08/01/18 11:33 Eosinophils % 1.8 % (0-4.5) 08/01/18 11:33 Basophils % 0.5 % (0-2.0) 08/01/18 11:33 Nucleated RBC % 0 % (0-0) 08/01/18 11:33 VBG pH 7.40 (7.32-7.42) 08/01/18 11:39 POC VBG pCO2 42.8 mmHg (38-52) 08/01/18 11:39 POC VBG pO2 68.2 mmHg (28-48) H 08/01/18 11:39 Mixed VBG HCO3 25.7 meq/L (19-25) H 08/01/18 11:39 Sodium 135 mmol/L (136-145) L 08/02/18 06:00 Potassium 4.0 mmol/L (3.5-5.1) 08/02/18 06:00 Chloride 100 mmol/L (98-107) 08/02/18 06:00 Carbon Dioxide 29 mmol/L (21-32) 08/02/18 06:00 Anion Gap 6 MMOL/L (8-16) L 08/02/18 06:00 BUN 16 mg/dL (7-18) 08/02/18 06:00 Creatinine 0.9 mg/dL (0.55-1.3) 08/02/18 06:00 Creat Clearance w eGFR > 60 (>60) 08/02/18 06:00 POC Glucometer 188 UNITS (80-120) 08/02/18 06:43 Random Glucose 193 mg/dL (74-106) H 08/02/18 06:00 Hemoglobin A1c % 9.5 % (4.2-6.3) H 08/02/18 07:05 Calcium 9.4 mg/dL (8.5-10.1) 08/02/18 06:00 Total Bilirubin 0.4 mg/dL (0.2-1) 08/02/18 06:00 AST 16 U/L (15-37) 08/02/18 06:00 ALT 28 U/L (13-61) 08/02/18 06:00 Alkaline Phosphatase 67 U/L (45-117) 08/02/18 06:00 Troponin I < 0.02 ng/ml (0.00-0.05) 08/01/18 11:33 B-Natriuretic Peptide 13.2 pg/ml (5-125) 08/01/18 11:39 Total Protein 7.7 g/dl (6.4-8.2) 08/02/18 06:00 Albumin 3.4 g/dl (3.4-5.0) 08/02/18 06:00 Triglycerides 171 mg/dL (0-150) H 08/02/18 06:00 Cholesterol 220 mg/dL (50-200) H 08/02/18 06:00 Total LDL Cholesterol 134 mg/dL (5-100) H 08/02/18 06:00 HDL Cholesterol 56 mg/dL (40-60) 08/02/18 06:00 Total Amylase 63 U/L (25-115) 08/02/18 06:00 Lipase 170 U/L (73-393) 08/02/18 06:00 Urine Color Ltyellow 08/01/18 13:00 Urine Appearance Clear 08/01/18 13:00 Urine pH 7.0 (5.0-8.0) 08/01/18 13:00 Ur Specific [place] 1.022 (1.010-1.035) 08/01/18 13:00 Urine Protein 2+ (NEGATIVE) H 08/01/18 13:00 Urine Glucose (UA) 3+ (NEGATIVE) H 08/01/18 13:00 Urine Ketones Negative (NEGATIVE) 08/01/18 13:00 Urine Blood Negative (NEGATIVE) 08/01/18 13:00 Urine Nitrite Negative (NEGATIVE) 08/01/18 13:00 Urine Bilirubin Negative (<2.0 mg/dL) 08/01/18 13:00 Urine Urobilinogen Negative mg/dL (0.2-1.0) 08/01/18 13:00 Ur Leukocyte Esterase Negative (NEGATIVE) 08/01/18 13:00 Urine WBC (Auto) <1 /hpf (3-5) 08/01/18 13:00 Urine RBC (Auto) 1 /hpf (0-3) 08/01/18 13:00 ecg: sr nl intervals no ischemic changes cxr: clear lungs tele: sr a/p: 68 m hx htn, dm, hiv, here with presyncope. presyncope: -possibly vasovagal given n/v symptoms as well -tele, ecg benign -check echo htn: -cont home meds dm: -elevated BS in ER, meds per primary n/v: -ct abd showing pancreatic mass, plans per primary
[2018-08-02] MEDS: morphine SO4 SUSTAINED ACTING 15 MG TABLET.SA PO SCH ×2 (11:42→21:18)
--- NOTE | 2018-08-02 12:44 | PN ---
Progress Note (short form) - Note Progress Note: 68 y/o male found lying in bed. States that he feels better today. Reports slight abdominal pain. Denies vomiting. Vital Signs Period Temp Pulse Resp BP Sys/Johnson Pulse Ox Last 24 Hr 98 F-98.3 F 70-80 16-18 128-152/71-98 97-100 CBC, BMP 08/02/18 07:05 08/02/18 06:00 HEENT- Normocephalic Neck- Supple Lungs- CTAB Heart- S1/S2 Abd- Soft, nt Ext- No LE edema Active Medications Amlodipine Besylate (Norvasc -) 10 mg PO DAILY [facility] Last Admin: 08/02/18 09:25 Dose: 10 mg Lisinopril (Prinivil) 10 mg PO DAILY [facility] Last Admin: 08/02/18 09:25 Dose: 10 mg Metoprolol Tartrate (Lopressor -) 100 mg PO BID [facility] Last Admin: 08/02/18 09:25 Dose: 100 mg Morphine Sulfate (Ms Contin -) 15 mg PO BID [facility] Last Admin: 08/02/18 11:42 Dose: 15 mg Non-Formulary Medication (Naloxegol Oxalate [Movantik]) 25 mg PO DAILY [facility] Oxycodone HCl (Roxicodone -) 10 mg PO BID [facility] Last Admin: 08/02/18 09:25 Dose: 10 mg Sitagliptin Phosphate (Januvia -) 100 mg PO 0700 [facility] Last Admin: 08/02/18 06:45 Dose: 100 mg #Abdominal Pain CT scan shows suspicious pancreatic lesion sched MRI #HTN BP stable Cont BB, CC and Acei #Back Pain Continue Oxycodone/Morphine #DM Cont Januvia
[2018-08-02] MEDS ORDERED: LORazepam 0.5 MG TABLET PO ONE ×2 (12:49)
--- NOTE | 2018-08-02 15:50 | ECHO ---
Name: JOY MENA Exam:Adult Echocardiogram Study Date: 08/02/2018 12:07 PM Age: 68 yrs Reason For Study: dizzy Height: 71 in Weight: 225 lb BSA: 2.2 m2 MMode/2D Measurements & Calculations IVSd: 1.1 cm Ao root diam: 3.4 cm LVIDd: 5.2 cm LA dimension: 3.5 cm LVIDs: 2.9 cm LVPWd: 1.1 cm LVPWs: 1.6 cm EDV(Teich): 132.2 ml ESV(Teich): 33.5 ml LVOT diam: 2.0 cm RV S Fredy: 12.2 cm/sec Doppler Measurements & Calculations MV E max fredy: 55.8 cm/sec Ao V2 max: 128.0 cm/sec MV A max fredy: 83.4 cm/sec Ao max P.6 mmHg MV E/A: 0.67 MV dec time: 0.23 sec TASHI(V,D): 1.9 cm2 LV V1 max P.3 mmHg PA V2 max: 93.7 cm/sec LV V1 max: 74.7 cm/sec PA max P.5 mmHg Med Peak E' Fredy: 5.1 cm/sec Med E/e': 10.9 Lat Peak E' Fredy: 7.1 cm/sec Lat E/e': 7.9 Procedure A complete two-dimensional transthoracic echocardiogram was performed (2D, M-mode, Doppler and color flow Doppler). Left Ventricle The left ventricular size, thickness and function are normal. The left ventricular ejection fraction is normal. Ejection Fraction = 60-65%. The left ventricular wall motion is normal. Right Ventricle The right ventricle is normal in size and function. Atria Normal left and right atrial size and function. Mitral Valve There is no mitral regurgitation noted. Tricuspid Valve There is trace tricuspid regurgitation. There was insufficient TR detected to calculate RV systolic p ressure. Aortic Valve No hemodynamically significant valvular aortic stenosis. No aortic regurgitation is present. Pulmonic Valve There is no pulmonic valvular regurgitation. Great Vessels The aortic root is normal size. Pericardium/Pleura There is no pericardial effusion. Interpretation Summary The left ventricular size, thickness and function are normal The right ventricle is normal in size and function. There is trace tricuspid regurgitation. MD [place] 08/02/2018 03:50 PM
--- NOTE | 2018-08-02 16:42 | EKG ---
Test Reason : Blood Pressure : / mmHG Vent. Rate : 068 BPM Atrial Rate : 068 BPM P-R Int : 198 ms QRS Dur : 088 ms QT Int : 374 ms P-R-T Axes : 061 -12 -01 degrees QTc Int : 397 ms NORMAL SINUS RHYTHM INFERIOR INFARCT , AGE UNDETERMINED ABNORMAL ECG WHEN COMPARED WITH ECG OF 01-AUG-2018 10:53, NO SIGNIFICANT CHANGE WAS FOUND Confirmed by KALLI LAZAR, SHREYA ([id number]) on 08/02/2018 4:42:34 PM Referred By: Confirmed By:SHREYA MAHAN MD
--- NOTE | 2018-08-02 22:26 | CON.GI ---
Consult Consult Specialty:: Gastroenterology Referred by:: Dr Swan Reason for Consultation:: Abdominal pain - History of Present Illness Chief Complaint: N/V and near syncope at home. Chronic abdominal pain History of Present Illness: 68M with diabetic neuropathy and HIV developed nausea, vomiting, worsening of his chronic abdominal pain and suffered a near syncopal spell today. He tells me that he has chronic bloating abdominal pain and chronic constipation. He take Morphine chronically for lumbar disc and diabetic neuropathy pain. Despite Movantik he has not been moving his bowels well lately and has been increasingly more bloated. He tells me that he had an EGD and a colonoscopy with Dr Willis within the past year and was only told of GERD. He had an EGD and colonoscopy with Dr. Moreno in 06/03 when small distal esophageal varices , portal gastropathy and a prepyloric ulcer were found. The colonoscopy revealed only hemorrhoids. He tells me that he was cured of HCV in the past and takes HAART meds for his HIV. - History Source History Provided By: Patient, Medical Record Limitations to Obtaining History: Poor Historian - Past Medical History [employer]NER AND FORMER: Yes: CVA (CVA x 2 '03 and ), Peripheral Neuropathy, Syncope Cardio/Vascular: Yes: [facility] CAD (cardiac cath 2011, positive EST for anterior wall ), HTN, Hyperlipdemia, Pulmonary Hypertension, Other ( nonobstructive CAD on angiogram, 07/09 stress MIBI mod ant-lat wall ischemia) Gastrointestinal: Yes: Constipation, Diverticulosis, Esophageal Varices (by EGD - Dr Moreno), GERD, Hemorrhoids Hepatobiliary: Yes: Hepatitis C (claims to have been cured), Other (fatty liver) Renal/: Yes: Renal Calculi ([facility] x several occasions) Heme/Onc: Yes: Anemia (had bone marrow remotely) Infectious Disease: Yes: HIV (sexually acquired homosexually and heterosexually , No IVDA) Musculoskeletal: Yes: Chronic low back pain (L4-L5 disc disease) Endocrine: Yes: Diabetes Mellitus - Past Surgical History Past Surgical History: Yes: Colonoscopy, Upper Endoscopy Additional Surgical History: implantation manager cardiac [facility] - Alcohol/Substance Use Hx Alcohol Use: Yes (rare) History of Substance Use: reports: None - Smoking History Smoking history: Former smoker Have you smoked in the past 12 months: No If you are a former smoker, when did you quit?: quit 2008 - Social History Usual Living Arrangement: With Spouse ADL: Independent 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 (year): age 39 History of Recent Travel: No Home Medications - Allergies Allergies/Adverse Reactions: Allergies Allergy/AdvReac Type Severity Reaction Status Date / Time No Known Allergies Allergy Verified 03/16/17 02:07 - Home Medications Home Medications: Ambulatory Orders Aspirin [ASA -] 81 mg PO DAILY #0 tab.chew 11/30/12 Lisinopril [Prinivil] 10 mg PO DAILY #0 tablet 11/30/12 Metoprolol Tartrate [Lopressor -] 50 mg PO BID #14 tablet 11/30/12 Emtricitabine/Tenofovir [Truvada -] 1 tab PO DAILY 02/27/17 Meclizine HCl 25 mg PO DAILY 02/27/17 Morphine Sulfate 15 mg PO BID 02/27/17 Omeprazole 20 mg PO DAILY 02/27/17 Oxycodone HCl 10 mg PO BID 02/27/17 Glipizide [Glipizide ER] 2.5 mg PO DAILY #30 tab.er.24 03/02/17 Levofloxacin [Levaquin] 500 mg PO DAILY #10 tablet 03/16/17 metroNIDAZOLE [Flagyl -] 500 mg PO Q8H #30 tablet 03/16/17 Amlodipine Besylate 10 mg PO DAILY 10/21/17 Glipizide 10 mg PO BID 10/21/17 Lisinopril 10 mg PO DAILY 10/21/17 Metoprolol Tartrate 100 mg PO BID 10/21/17 Morphine [Morphine Sulfate] 15 mg PO BID 10/21/17 Naloxegol Oxalate [Movantik] 25 mg PO DAILY 10/21/17 Sitagliptin Phosphate [Januvia] 100 mg PO DAILY 10/21/17 oxyCODONE HCL [Roxicodone -] 10 mg PO BID 10/21/17 Azithromycin [Zithromax -] 250 mg PO UTDICT #6 tab 07/16/18 Meclizine HCl 50 mg PO BID #14 tablet 07/16/18 Family Disease History - Family Disease History Family Disease History: Diabetes: Mother ( uterine cancer), CA: Mother, Other: Father (estranged) Review of Systems - Review of Systems Constitutional: reports: Loss of Appetite Eyes: reports: Blurred Vision HENT: reports: No Symptoms Neck: reports: No Symptoms Cardiovascular: reports: No Symptoms Respiratory: reports: No Symptoms Gastrointestinal: reports: Abdominal Pain, Bloating, Constipation, Nausea, Vomiting Genitourinary: reports: No Symptoms Musculoskeletal: reports: Back Pain Neurological: reports: Dizziness, Parasthesia, Syncope, Other (neuropathic pain) Physical Exam-GI Vital Signs: Vital Signs Temperature 98.3 F 08/02/18 22:00 Pulse Rate 68 08/02/18 22:00 Respiratory Rate 18 08/02/18 22:00 Blood Pressure 131/66 08/02/18 22:00 O2 Sat by Pulse Oximetry (%) 98 08/02/18 21:00 CBC,CMP WBC 5.9 K/mm3 (4.0-10.0) 08/02/18 07:05 RBC 4.07 M/mm3 (4.00-5.60) 08/02/18 07:05 Hgb 12.2 GM/dL (11.7-16.9) 08/02/18 07:05 Hct 35.4 % (35.4-49) 08/02/18 07:05 MCV 86.9 fl (80-96) 08/02/18 07:05 MCH 30.0 pg (25.7-33.7) 08/02/18 07:05 MCHC 34.6 g/dl (32.0-35.9) 08/02/18 07:05 RDW 14.4 % (11.9-15.9) 08/02/18 07:05 Plt Count 189 K/MM3 (134-434) 08/02/18 07:05 MPV 7.5 fl (7.5-11.1) 08/02/18 07:05 Absolute Neuts (auto) 3.3 K/mm3 (1.5-8.0) 08/01/18 11:33 Neutrophils % 58.6 % (42.8-82.8) D 08/01/18 11:33 Lymphocytes % 30.6 % (8-40) D 08/01/18 11:33 Monocytes % 8.5 % (3.8-10.2) 08/01/18 11:33 Eosinophils % 1.8 % (0-4.5) 08/01/18 11:33 Basophils % 0.5 % (0-2.0) 08/01/18 11:33 Nucleated RBC % 0 % (0-0) 08/01/18 11:33 Sodium 135 mmol/L (136-145) L 08/02/18 06:00 Potassium 4.0 mmol/L (3.5-5.1) 08/02/18 06:00 Chloride 100 mmol/L (98-107) 08/02/18 06:00 Carbon Dioxide 29 mmol/L (21-32) 08/02/18 06:00 Anion Gap 6 MMOL/L (8-16) L 08/02/18 06:00 BUN 16 mg/dL (7-18) 08/02/18 06:00 Creatinine 0.9 mg/dL (0.55-1.3) 08/02/18 06:00 Creat Clearance w eGFR > 60 (>60) 08/02/18 06:00 POC Glucometer 187 UNITS (80-120) 08/02/18 20:54 Random Glucose 193 mg/dL (74-106) H 08/02/18 06:00 Hemoglobin A1c % 9.5 % (4.2-6.3) H 08/02/18 07:05 Calcium 9.4 mg/dL (8.5-10.1) 08/02/18 06:00 Total Bilirubin 0.4 mg/dL (0.2-1) 08/02/18 06:00 AST 16 U/L (15-37) 08/02/18 06:00 ALT 28 U/L (13-61) 08/02/18 06:00 Alkaline Phosphatase 67 U/L (45-117) 08/02/18 06:00 Troponin I < 0.02 ng/ml (0.00-0.05) 08/01/18 11:33 B-Natriuretic Peptide 13.2 pg/ml (5-125) 08/01/18 11:39 Total Protein 7.7 g/dl (6.4-8.2) 08/02/18 06:00 Albumin 3.4 g/dl (3.4-5.0) 08/02/18 06:00 Triglycerides 171 mg/dL (0-150) H 08/02/18 06:00 Cholesterol 220 mg/dL (50-200) H 08/02/18 06:00 Total LDL Cholesterol 134 mg/dL (5-100) H 08/02/18 06:00 HDL Cholesterol 56 mg/dL (40-60) 08/02/18 06:00 Total Amylase 63 U/L (25-115) 08/02/18 06:00 Lipase 170 U/L (73-393) 08/02/18 06:00 Current Medications Generic Name Dose Route Start Last Admin Trade Name Charlie PRN Reason Stop Dose Admin Amlodipine Besylate 10 mg 08/02/18 10:00 08/02/18 09:25 Norvasc - PO 10 mg DAILY MAN[facility] Administration Lisinopril 10 mg 08/02/18 10:00 08/02/18 09:25 Prinivil PO 10 mg DAILY [facility] Administration Lorazepam 0.5 mg 08/02/18 12:49 Ativan - PO 08/02/18 12:50 ONCE ONE Metoprolol Tartrate 100 mg 08/01/18 22:00 08/02/18 21:17 Lopressor - PO 100 mg BID [facility] Administration Morphine Sulfate 15 mg 08/01/18 22:00 08/02/18 21:18 Ms Contin - PO 15 mg BID [facility] Administration Non-Formulary Medication 25 mg 08/02/18 10:00 Naloxegol Oxalate [Movantik] PO DAILY [facility] Oxycodone HCl 10 mg 08/01/18 22:00 08/02/18 21:17 Roxicodone - PO 10 mg BID [facility] Administration Sitagliptin Phosphate 100 mg 08/02/18 07:00 08/02/18 06:45 Januvia - PO 100 mg 0700 [facility] Administration Constitutional: Yes: Anxious Eyes: Yes: Conjunctiva Clear HENT: Yes: Atraumatic Neck: Yes: Supple Cardiovascular: Yes: Regular Rate and Rhythm, Other (palpable implanted monitor) Respiratory: Yes: CTA Bilaterally Gastrointestinal Inspection: Yes: Distention ...Auscultate: Yes: Hypoactive Bowel Sounds ...Palpate: Yes: Soft, Tenderness (epigastric) ...Percussion: Yes: Tympanitic ...Rectal Exam: Yes: Guaiac Negative (2+ prostate, brown guaiac negative stool) Extremities: Yes: WNL Edema: No Neurological: Yes: Alert, Oriented Labs: CBC, BMP 08/02/18 07:05 08/02/18 06:00 Imaging - Results Cat Scan: Image Reviewed (2.5 x 3.1 mass in body of pancreas) Problem List - Problems (1) Pancreatic mass Assessment/Plan: This mass requires EUS and a fine needle aspiration biopsy to exclude a malignancy. I have provided Mauri with the phone number for Dr Angel Isaac at [facility] who can do this. I do not believe that this mass is the cause of this presentation. 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 I will start Reglan and Miralax. Continue the Movantik. Code(s): E11.43 - TYPE 2 DIABETES W DIABETIC AUTONOMIC (POLY)NEUROPATHY; K31.84 - GASTROPARESIS (3) HIV (human immunodeficiency virus infection) Assessment/Plan: Continue HAART medications. Will screen for Hepatitis A,B and C. His CT and labs argue against cirrhosis so the h/o esophageal varices is in question. Dr. Willis's endoscopy reports would be appreciated. Code(s): B20 - HUMAN IMMUNODEFICIENCY VIRUS [HIV] DISEASE (4) Constipation due to opioid therapy Code(s): K59.03 - DRUG INDUCED CONSTIPATION; T40.2X5A - ADVERSE EFFECT OF OTHER OPIOIDS, INITIAL ENCOUNTER (5) Constipation due to neurogenic bowel Code(s): K59.00 - CONSTIPATION, UNSPECIFIED (6) Nephrolithiasis Code(s): N20.0 - CALCULUS OF KIDNEY (7) Neuropathy due to type 2 diabetes mellitus Code(s): E11.40 - TYPE 2 DIABETES MELLITUS WITH DIABETIC NEUROPATHY, UNSP (8) Coronary arteriosclerosis Code(s): I25.10 - ATHSCL HEART DISEASE OF [place] CORONARY ARTERY W/O ANG PCTRS (9) History of cardiac monitoring Code(s): Z92.89 - PERSONAL HISTORY OF OTHER MEDICAL TREATMENT (10) Diabetes mellitus Code(s): E11.9 - TYPE 2 DIABETES MELLITUS WITHOUT COMPLICATIONS (11) Hypertension Code(s): I10 - ESSENTIAL (PRIMARY) HYPERTENSION (12) Vomiting Code(s): R11.10 - VOMITING, UNSPECIFIED (13) Abdominal pain Code(s): R10.9 - UNSPECIFIED ABDOMINAL PAIN Qualifiers: Abdominal location: unspecified location Qualified Code(s): R10.9 - Unspecified abdominal pain (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 H/O esophageal varices is questioned Fatty liver is associated with DM. He has not abused alcohol Plan: Reglan q6h Miralax TID Continue Movantik Alpheus tells me his is claustrophobic and won't tolerate MRI. This won' t obviate the need for EUS with biopsy so I gave him Dr. Angel Isaac's number at [facility] Hepatitis screen Dr. Willis's endoscopy reports would be appreciated
[2018-08-02] MEDS: METOCLOPRAMIDE HCL INJECTION 10 MG/2 ML VIAL IVPUSH SCH (23:45)
[2018-08-03] MEDS: METOCLOPRAMIDE HCL INJECTION 10 MG/2 ML VIAL IVPUSH SCH ×3 (05:58→17:33)
[2018-08-03] MEDS: POLYETHYLENE GLYCOL 3350 119 GM BTL PO SCH ×3 (06:00→23:05)
[2018-08-03] MEDS: sitaGLIPtin PHOSPHATE 100 MG TABLET (FP) PO SCH (06:01)
[2018-08-03 06:28] LABS: BASO % 0.4 % (0-2.0); EOS % 1.7 % (0-4.5); HEMATOCRIT 36.9 % (35.4-49); HEMOGLOBIN 12.7 GM/dL (11.7-16.9); MCH 29.9 pg (25.7-33.7); MCHC 34.4 g/dl (32.0-35.9); MEAN CELL VOLUME 86.8 fl (80-96); MEAN PLT VOLUME 7.7 fl (7.5-11.1); MONO % 8.5 % (3.8-10.2); NEUT % 45.4 % (42.8-82.8); PLATELET COUNT 192 K/MM3 (134-434); RBC 4.25 M/mm3 (4.00-5.60); RDW 14.2 % (11.9-15.9); WHITE BLOOD COUNT 5.8 K/mm3 (4.0-10.0)
[2018-08-03 06:48] LABS: INR 0.99 (0.83-1.09); PROTHROMBIN TIME (PATIENT) 11.7 SEC (9.7-13.0)
[2018-08-03 07:09] LABS: ANION GAP 5 MMOL/L (8-16); BLOOD UREA NITROGEN 13 mg/dL (7-18); CALCIUM 9.8 mg/dL (8.5-10.1); CHLORIDE 98 mmol/L (98-107); CO2 32 mmol/L (21-32); GLUCOSE,RANDOM 216 mg/dL (74-106); POTASSIUM 4.7 mmol/L (3.5-5.1); SODIUM 135 mmol/L (136-145)
[2018-08-03] MEDS: morphine SO4 SUSTAINED ACTING 15 MG TABLET.SA PO SCH ×2 (09:30→21:37)
[2018-08-03] MEDS: amLODIPine BESYLATE 10 MG TABLET (FP) PO SCH (10:09)
[2018-08-03] MEDS: oxyCODONE HCL 5 MG TABLET PO SCH ×2 (10:09→21:36)
[2018-08-03] MEDS: LISINOPRIL 10 MG TABLET (FP) PO SCH (10:09)
[2018-08-03] MEDS: METOPROLOL TARTRATE 50 MG TABLET (FP) PO SCH ×2 (10:09→21:36)
[2018-08-03] MEDS: PANTOPRAZOLE 40 MG TABLET (FP) PO SCH ×2 (10:09→21:37)
--- NOTE | 2018-08-03 11:44 | PN ---
Progress Note (short form) - Note Progress Note: 68 y/o male found a & O x 3. Reports slight, intermittent pain in rt side. Vital Signs Period Temp Pulse Resp BP Sys/Johnson Pulse Ox Last 24 Hr 98.3 F-98.6 F 66-70 18-18 123-159/64-97 98-98 CBC, BMP 08/03/18 05:30 08/03/18 05:30 HEENT- Normocephalic Neck- Supple Lungs- CTAB Heart- S1/S2 Abd- Distended, tender on palpation Ext- No LE edema Active Medications Amlodipine Besylate (Norvasc -) 10 mg PO DAILY [facility] Last Admin: 08/03/18 10:09 Dose: 10 mg Lisinopril (Prinivil) 10 mg PO DAILY [facility] Last Admin: 08/03/18 10:09 Dose: 10 mg Lorazepam (Ativan -) 1 mg PO ONCE ONE Stop: 08/03/18 11:36 Lorazepam (Ativan -) 0.5 mg PO ONCE ONE Stop: 08/02/18 12:50 Metoclopramide HCl (Reglan Injection -) 10 mg IVPUSH Q6H [facility] Last Admin: 08/03/18 11:33 Dose: 10 mg Metoprolol Tartrate (Lopressor -) 100 mg PO BID [facility] Last Admin: 08/03/18 10:09 Dose: 100 mg Morphine Sulfate (Ms Contin -) 15 mg PO BID [facility] Last Admin: 08/03/18 09:30 Dose: 15 mg Non-Formulary Medication (Naloxegol Oxalate [Movantik]) 25 mg PO DAILY [facility] Oxycodone HCl (Roxicodone -) 10 mg PO BID [facility] Last Admin: 08/03/18 10:09 Dose: 10 mg Pantoprazole Sodium (Protonix -) 40 mg PO BID [facility] Last Admin: 08/03/18 10:09 Dose: 40 mg Polyethylene Glycol (Miralax (For Daily Use) -) 17 gm PO TID [facility] Last Admin: 08/03/18 06:00 Dose: 17 grams Sitagliptin Phosphate (Januvia -) 100 mg PO 0700 [facility] Last Admin: 08/03/18 06:01 Dose: 100 mg #Abdominal Pain CT scan shows suspicious pancreatic lesion MRI pending- Ativan one time dose for claustrophobia Radiology aware of loop recorder GI consult appreciated Gastroparesis suspected due to DM EUS / fine needle aspiration bx needed- referred to DR. SCHMIDT at [facility] Hep screen pending #Chronic constipation due to opioids Continue Movantik Miralax and Reglan #HTN BP stable Cont BB, CC and Acei #Back Pain Continue Oxycodone/Morphine #DM Cont Januvia #HIV Continue HAART
--- NOTE | 2018-08-03 11:46 | PN ---
Progress Note (short form) - Note Progress Note: s: no cp sob palps dizzy o: Vital Signs Period Temp Pulse Resp BP Sys/Johnson Pulse Ox Last 24 Hr 98.3 F-98.6 F 66-70 18-18 123-159/64-97 98-98 nad no jvd rrr s1s2 no mrg cta bl nl eff aaox3 no le e/c/c abd nt nd pos bs no jaundice diaphoresis Current Medications Generic Name Dose Route Start Last Admin Trade Name Charlie PRN Reason Stop Dose Admin Amlodipine Besylate 10 mg 08/02/18 10:00 08/03/18 10:09 Norvasc - PO 10 mg DAILY MANNY Administration Lisinopril 10 mg 08/02/18 10:00 08/03/18 10:09 Prinivil PO 10 mg DAILY MANNY Administration Lorazepam 1 mg 08/03/18 11:35 Ativan - PO 08/03/18 11:36 ONCE ONE Lorazepam 0.5 mg 08/02/18 12:49 Ativan - PO 08/02/18 12:50 ONCE ONE Metoclopramide HCl 10 mg 08/02/18 23:15 08/03/18 11:33 Reglan Injection - IVPUSH 10 mg Q6H MANNY Administration Metoprolol Tartrate 100 mg 08/01/18 22:00 08/03/18 10:09 Lopressor - PO 100 mg BID MANNY Administration Morphine Sulfate 15 mg 08/01/18 22:00 08/03/18 09:30 Ms Contin - PO 15 mg BID MANNY Administration Non-Formulary Medication 25 mg 08/02/18 10:00 Naloxegol Oxalate [Movantik] PO DAILY MANNY Oxycodone HCl 10 mg 08/01/18 22:00 08/03/18 10:09 Roxicodone - PO 10 mg BID MANNY Administration Pantoprazole Sodium 40 mg 08/03/18 10:00 08/03/18 10:09 Protonix - PO 40 mg BID MANNY Administration Polyethylene Glycol 17 gm 08/03/18 06:00 08/03/18 06:00 Miralax (For Daily Use) - PO 17 grams TID MANNY Administration Sitagliptin Phosphate 100 mg 08/02/18 07:00 08/03/18 06:01 Januvia - PO 100 mg 0700 MANNY Administration CBC, BMP 08/03/18 05:30 08/03/18 05:30 ecg: sr nl intervals no ischemic changes cxr: clear lungs tele: sr echo 07/2018: nl lv/rv, no sig valve path a/p: 68 m hx htn, dm, hiv, here with presyncope. presyncope: -possibly vasovagal given n/v symptoms as well -tele, ecg, echo benign htn: -cont home meds dm: -elevated BS in ER, meds per primary n/v: -ct abd showing pancreatic mass, plans per GI cardiac tenorio stable, dc tele
--- NOTE | 2018-08-03 14:17 | CONSULT ---
Admitting History and Physical - Primary Care Physician PCP: Lilli Swan I - Admission History of Present Illness: Per EMR: History of Present Illness: The patient is a 68-year-old male, with a past medical history of HTN, internal heart monitor (placed at [facility]), NIDDM, HIV with undetectable viral load, GERD, vertigo, who presents to the ED with nausea, vomiting, and elevated BS today. Patient states he was standing this morning and suddenly became nauseous/ weak and felt like he was going to fall. He was able to sit down and call his daughter who brought him to the ER. BS was noted to be 259 this morning and 289 while in the ER. He reports multiple episodes of vomiting but denies any blood in the emesis. States he has been vomiting what he has been eating. He is also complaining of diffuse abdominal pain and constipation. REports hx of similar sxs, but has not been diagnosed with anything. Per GI Impression: New pancreatic mass on CT N/V due to diabetic gastroparesis Narcotic bowel causing chronic pain and constipation bloating compounded by diabetic neuropathy Hepatitis status needs to be determined. H/O esophageal varices is questioned Fatty liver is associated with DM. He has not abused alcohol Selected Entries 08/02/18 08/02/18 08/02/18 02:29 06:00 09:00 Breakfast Supper Temperature 98.1 F 98.2 F 98 F 08/02/18 08/02/18 08/02/18 11:33 22:00 22:59 Breakfast 100% Supper 75% Temperature 98.3 F 08/03/18 08/03/18 08/03/18 01:48 05:00 09:00 Breakfast Supper Temperature 98.4 F 98.4 F 98.6 F 08/03/18 11:51 Breakfast 100% Supper Temperature Laboratory Tests 08/03/18 05:30 WBC 5.8 On Full fluid diet. Pt wants diet to be advanced. He had a peeled orange on his lap, from a family member. This is my first consult with this pt,. 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: CVA (CVA x 2 '03 and ), Peripheral Neuropathy, Syncope Cardiovascular: Yes: AFIB (has [facility] internal monitor), CAD (cardiac cath 2011, positive EST for anterior wall ), HTN, Hyperlipdemia, Pulmonary Hypertension, Other ( nonobstructive CAD on angiogram, 07/09 stress MIBI mod ant-lat wall ischemia) Gastrointestinal: Yes: Constipation, Diverticulosis, Esophageal Varices (by EGD - Dr Moreno), GERD, Hemorrhoids Hepatobiliary: Yes: Hepatitis C (claims to have been cured), Other (fatty liver) Renal/: Yes: Renal Calculi ([facility] x several occasions) Heme/Onc: Yes: Anemia (had bone marrow remotely) Infectious Disease: Yes: HIV (sexually acquired homosexually and heterosexually , No IVDA) Musculoskeletal: Yes: Chronic low back pain (L4-L5 disc disease) Endocrine: Yes: Diabetes Mellitus - Past Surgical History Past Surgical History: Yes: Colonoscopy, Upper Endoscopy - Smoking History Smoking history: Former smoker Have you smoked in the past 12 months: No If you are a former smoker, when did you quit?: quit 2008 - Alcohol/Substance Use Hx Alcohol Use: Yes (rare) History of Substance Use: reports: None - Social History ADL: Independent Occupation: retired Formerly [employer] [facility] [employer] History of Recent Travel: No History - Admission Reason For Visit: PRE-SYNCOPE/VOMITING - Diagnostics X-ray: Report Reviewed CT Scan: Report Reviewed - General Mental Status: Alert and Oriented, Awake and Alert, Able to Follow Commands Attention: Intact Ability to Follow Directions: Excellent Head/Neck Control: WFL - Hearing Hearing: Normal Speech Evaluation - Communication Primary Language: YAKUT Communication: Yes: Within Normal Limits Oral Expression Ability: Yes: No Impairment - Speech Production Able to Make Needs Known: Yes: WNL Intelligibility: Yes: WNL - Speech Characteristics Voice Loudness: Normal Voice Pitch: Yes: Normal Voice Phonatory-based Quality: Yes: Normal Speech Pattern: Normal Speech Clarity: < 100% Nasal Resonance: Normal Articulation: Yes: Precise Rate of Speech: Intact - Language/Auditory Comprehension Follows: Yes: 2 Stage Simple Commands - Language/Verbal Expression Able to Respond to Simple Queries: Yes: WNL Able to Communicate Wants and Needs: Yes: WNL Functional Communication Status: Yes: WNL - Swallow Evaluation/Bedside Assessment Current Nutritional Intake: Full Liquids Oral Secretions: Yes: WFL Dentition: Yes: Adequate Facial Symmetry at Rest: Symmetrical Facial Symmetry on Retraction: Symmetrical Facial Movement: Controlled Sensation: Normal Against Resistance Opening: Normal Against Resistance Closing: Normal Pucker Lips: Normal Smile: Normal Lingual Movement: Normal, Symmetric Lingual Speed of Movement: Normal Lingual Movement Strgth Against Opposition: Normal Lingual Movement Characteristics: Normal Velopharyngeal Movement: Normal Laryngeal Elevation: WFL Laryngeal Movement: Able to Palpate Rate of Intake: WFL Bolus Size: WFL Labial Seal: WFL Chewing: WFL Oral Prep Time: WFL A-P Transit: WFL Pocketing: None Timing of Swallow: WFL Coughing/Throat Clear: No Change in Voice: No Recommendations - Speech Evaluation, Impression/Plan Impression: Pt reports feeling better. Denies nausea or recurrent vomiting. He is asking for diet upgrade. No dysphagia reported or observed. - Dysphagia Impressions/Plan Swallowing Skills: [facility] Dysphagia Impressions: No Impairment *Silent aspiration: cannot be R/O at bedside - Recommendations Diet Consistency: Regular (as tolerated, if PMD/GI approves.) Liquids: Thin Liquids
[2018-08-03] MEDS ORDERED: LORazepam 1 MG TABLET PO ONE ×2 (16:00→20:15)
--- NOTE | 2018-08-03 17:50 | PN ---
GI Progress Note Subjective: GI NOte: Feeling much better and is hungry. No BM yet. MRI of pancreas pending - Objective Vital Signs: Vital Signs Temperature 97.6 F 08/03/18 16:20 Pulse Rate 65 08/03/18 16:20 Respiratory Rate 20 08/03/18 16:20 Blood Pressure 126/71 08/03/18 16:20 O2 Sat by Pulse Oximetry (%) 98 08/03/18 09:00 Laboratory Tests 08/03/18 05:30 CA 19-9 Antigen Pending Constitutional: Calm ...Auscultate: Yes: Normoactive Bowel Sounds ...Palpate: Yes: Soft, Other (nontender) ...Percussion: Yes: Tympanitic Labs: CBC, BMP 08/03/18 05:30 08/03/18 05:30 INR, PTT INR 0.99 (0.83-1.09) 08/03/18 05:30 Assessment/Plan Impression: New pancreatic mass on CT N/V due to diabetic gastroparesis responding to Reglan Narcotic bowel causing chronic pain and constipation bloating compounded by diabetic neuropathy Hepatitis status needs to be determined. H/O esophageal varices is questioned Fatty liver is associated with DM. He has not abused alcohol Plan: Reglan q6h - switch to po Miralax TID Continue Movantik Await MRI. This won't obviate the need for EUS with biopsy so I gave him Dr. Angel Isaac's number at [facility] Hepatitis screen Dr. David will be covering this weekend Problem List - Problems (1) Pancreatic mass Code(s): K86.9 - DISEASE OF PANCREAS, UNSPECIFIED (2) Gastroparesis due to DM Code(s): E11.43 - TYPE 2 DIABETES W DIABETIC AUTONOMIC (POLY)NEUROPATHY; K31.84 - GASTROPARESIS (3) HIV (human immunodeficiency virus infection) Code(s): B20 - HUMAN IMMUNODEFICIENCY VIRUS [HIV] DISEASE (4) Constipation due to opioid therapy Code(s): K59.03 - DRUG INDUCED CONSTIPATION; T40.2X5A - ADVERSE EFFECT OF OTHER OPIOIDS, INITIAL ENCOUNTER (5) Constipation due to neurogenic bowel Code(s): K59.00 - CONSTIPATION, UNSPECIFIED (6) Nephrolithiasis Code(s): N20.0 - CALCULUS OF KIDNEY (7) Neuropathy due to type 2 diabetes mellitus Code(s): E11.40 - TYPE 2 DIABETES MELLITUS WITH DIABETIC NEUROPATHY, UNSP (8) Coronary arteriosclerosis Code(s): I25.10 - ATHSCL HEART DISEASE OF [place] CORONARY ARTERY W/O ANG PCTRS (9) History of cardiac monitoring Code(s): Z92.89 - PERSONAL HISTORY OF OTHER MEDICAL TREATMENT (10) Diabetes mellitus Code(s): E11.9 - TYPE 2 DIABETES MELLITUS WITHOUT COMPLICATIONS (11) Hypertension Code(s): I10 - ESSENTIAL (PRIMARY) HYPERTENSION (12) Vomiting Code(s): R11.10 - VOMITING, UNSPECIFIED (13) Abdominal pain Code(s): R10.9 - UNSPECIFIED ABDOMINAL PAIN Qualifiers: Abdominal location: unspecified location Qualified Code(s): R10.9 - Unspecified abdominal pain (14) Narcotic bowel syndrome Code(s): K63.89 - OTHER SPECIFIED DISEASES OF INTESTINE (15) Fatty infiltration of liver Code(s): K76.0 - FATTY (CHANGE OF) LIVER, NOT ELSEWHERE CLASSIFIED
[2018-08-04 04:15] LABS: SERUM IRON SATURATION 32 % (15-55); TOTAL IRON BINDING CAPACITY 262 ug/dL (250-450); UIBC 178 ug/dL (111-343)
[2018-08-04] MEDS ORDERED: PT OWN MED DRAWER 7, Y5N ONE (06:14)
[2018-08-04] MEDS: METOCLOPRAMIDE HCL 10 MG TABLET (FP) PO SCH ×3 (06:42→17:17)
[2018-08-04] MEDS: sitaGLIPtin PHOSPHATE 100 MG TABLET (FP) PO SCH (06:42)
[2018-08-04] MEDS: POLYETHYLENE GLYCOL 3350 119 GM BTL PO SCH ×3 (06:42→22:19)
[2018-08-04 07:06] LABS: BASO % 0.4 % (0-2.0); EOS % 1.8 % (0-4.5); HEMATOCRIT 36.1 % (35.4-49); HEMOGLOBIN 12.5 GM/dL (11.7-16.9); LYMPH % 41.2 % (8-40); MCHC 34.5 g/dl (32.0-35.9); MEAN CELL VOLUME 86.8 fl (80-96); MEAN PLT VOLUME 7.9 fl (7.5-11.1); MONO % 8.7 % (3.8-10.2); NEUT % 47.9 % (42.8-82.8); PLATELET COUNT 191 K/MM3 (134-434); RBC 4.16 M/mm3 (4.00-5.60); RDW 14.2 % (11.9-15.9)
[2018-08-04] MEDS ORDERED: LORazepam 1 MG TABLET PO ONE (07:17)
[2018-08-04] MEDS ORDERED: LORazepam 0.5 MG TABLET PO ONE (07:17)
[2018-08-04 07:28] LABS: ANION GAP 6 MMOL/L (8-16); BLOOD UREA NITROGEN 17 mg/dL (7-18); CALCIUM 9.5 mg/dL (8.5-10.1); CHLORIDE 99 mmol/L (98-107); CO2 30 mmol/L (21-32); CREATININE 1.1 mg/dL (0.55-1.3); GLUCOSE,RANDOM 208 mg/dL (74-106); POTASSIUM 4.5 mmol/L (3.5-5.1); SODIUM 135 mmol/L (136-145)
[2018-08-04] MEDS: LISINOPRIL 10 MG TABLET (FP) PO SCH (09:25)
[2018-08-04] MEDS: PANTOPRAZOLE 40 MG TABLET (FP) PO SCH ×2 (09:25→22:19)
[2018-08-04] MEDS: METOPROLOL TARTRATE 50 MG TABLET (FP) PO SCH ×2 (09:25→22:19)
[2018-08-04] MEDS: amLODIPine BESYLATE 10 MG TABLET (FP) PO SCH (09:26)
[2018-08-04] MEDS: NALOXEGOL OXALATE PO SCH (09:26)
[2018-08-04] MEDS: morphine SO4 SUSTAINED ACTING 15 MG TABLET.SA PO SCH ×2 (09:44→22:19)
[2018-08-04] MEDS: oxyCODONE HCL 5 MG TABLET PO SCH ×2 (10:00→17:31)
--- NOTE | 2018-08-04 10:19 | PN ---
Progress Note (short form) - Note Progress Note: s: no cp sob palps dizzy o: Vital Signs Period Temp Pulse Resp BP Sys/Johnson Pulse Ox Last 24 Hr 97.6 F-98.1 F 65-69 20-20 117-136/61-79 99 nad no jvd rrr s1s2 no mrg cta bl nl eff aaox3 no le e/c/c abd nt nd pos bs no jaundice diaphoresis Current Medications Generic Name Dose Route Start Last Admin Trade Name Freq PRN Reason Stop Dose Admin Amlodipine Besylate 10 mg 08/04/18 10:00 08/04/18 09:26 Norvasc - PO 10 mg DAILY AMNNY Administration Lisinopril 10 mg 08/04/18 10:00 08/04/18 09:25 Prinivil PO 10 mg DAILY MANNY Administration Lorazepam 1 mg 08/04/18 07:17 Ativan - PO 08/04/18 07:18 ONCE ONE Metoclopramide HCl 10 mg 08/04/18 07:00 08/04/18 06:42 Reglan - PO 10 mg TIDAC MANNY Administration Metoprolol Tartrate 100 mg 08/04/18 10:00 08/04/18 09:25 Lopressor - PO 100 mg BID MANNY Administration Morphine Sulfate 15 mg 08/04/18 10:00 08/04/18 09:44 Ms Contin - PO 15 mg BID MANNY Administration Non-Formulary Medication 0 mg 08/03/18 17:40 08/04/18 09:26 Naloxegol Oxalate [Movantik] PO 25 mg DAILY MANNY Administration Oxycodone HCl 10 mg 08/04/18 10:00 Roxicodone - PO BID MANNY Pantoprazole Sodium 40 mg 08/04/18 10:00 08/04/18 09:25 Protonix - PO 40 mg BID MANNY Administration Polyethylene Glycol 17 gm 08/04/18 14:00 Miralax (For Daily Use) - PO TID MANNY Sitagliptin Phosphate 100 mg 08/05/18 07:00 Januvia - PO 0700 MANNY CBC, BMP 08/04/18 05:30 08/04/18 05:30 ecg: sr nl intervals no ischemic changes cxr: clear lungs tele: sr echo 07/2018: nl lv/rv, no sig valve path a/p: 68 m hx htn, dm, hiv, here with presyncope. presyncope: -possibly vasovagal given n/v symptoms as well -tele, ecg, echo benign htn: -cont home meds dm: -elevated BS in ER, meds per primary n/v: -ct abd showing pancreatic mass, plans per GI cardiac tenorio stable, dc tele
[2018-08-04 11:14] LABS: HBSAG SCREEN Negative (Negative); HEP A AB, IGM Negative (Negative); HEP B CORE AB, TOT Positive (Negative)
[2018-08-04 16:14] LABS: TRANSGLUTAMINASE IGA < 2 U/mL (0-3); TRANSGLUTAMINASE IGG < 2 U/mL (0-5)
--- NOTE | 2018-08-04 17:19 | PN ---
Progress Note (short form) - Note Progress Note: seen and examined in bed stated tolerating PO no nausea or vomiting denies abdominal pain Vital Signs Period Temp Pulse Resp BP Sys/Johnson Pulse Ox Last 24 Hr 97.6 F-97.9 F 65-80 18-20 119-148/61-86 96-99 neck supple heart s1/s2 reg Liungs clear bilat Abd soft no tenderness ext no calf tenderness no edema CBC, BMP 08/04/18 05:30 08/04/18 05:30 Ca 19-9 = 29 EKG - SR CXR - Clear Tele - Sinus echo 07/2018: nl lv/rv, no sig valve path Laboratory Last Values WBC 6.0 K/mm3 (4.0-10.0) 08/04/18 05:30 RBC 4.16 M/mm3 (4.00-5.60) 08/04/18 05:30 Hgb 12.5 GM/dL (11.7-16.9) 08/04/18 05:30 Hct 36.1 % (35.4-49) 08/04/18 05:30 MCV 86.8 fl (80-96) 08/04/18 05:30 MCH 30.0 pg (25.7-33.7) 08/04/18 05:30 MCHC 34.5 g/dl (32.0-35.9) 08/04/18 05:30 RDW 14.2 % (11.9-15.9) 08/04/18 05:30 Plt Count 191 K/MM3 (134-434) 08/04/18 05:30 MPV 7.9 fl (7.5-11.1) 08/04/18 05:30 Absolute Neuts (auto) 2.9 K/mm3 (1.5-8.0) 08/04/18 05:30 Neutrophils % 47.9 % (42.8-82.8) 08/04/18 05:30 Lymphocytes % 41.2 % (8-40) H 08/04/18 05:30 Monocytes % 8.7 % (3.8-10.2) 08/04/18 05:30 Eosinophils % 1.8 % (0-4.5) 08/04/18 05:30 Basophils % 0.4 % (0-2.0) 08/04/18 05:30 Nucleated RBC % 0 % (0-0) 08/04/18 05:30 PT with INR 11.70 SEC (9.7-13.0) 08/03/18 05:30 INR 0.99 (0.83-1.09) 08/03/18 05:30 VBG pH 7.40 (7.32-7.42) 08/01/18 11:39 POC VBG pCO2 42.8 mmHg (38-52) 08/01/18 11:39 POC VBG pO2 68.2 mmHg (28-48) H 08/01/18 11:39 Mixed VBG HCO3 25.7 meq/L (19-25) H 08/01/18 11:39 Sodium 135 mmol/L (136-145) L 08/04/18 05:30 Potassium 4.5 mmol/L (3.5-5.1) 08/04/18 05:30 Chloride 99 mmol/L (98-107) 08/04/18 05:30 Carbon Dioxide 30 mmol/L (21-32) 08/04/18 05:30 Anion Gap 6 MMOL/L (8-16) L 08/04/18 05:30 BUN 17 mg/dL (7-18) 08/04/18 05:30 Creatinine 1.1 mg/dL (0.55-1.3) 08/04/18 05:30 Creat Clearance w eGFR > 60 (>60) 08/04/18 05:30 POC Glucometer 259 UNITS (80-120) 08/04/18 16:57 Random Glucose 208 mg/dL (74-106) H 08/04/18 05:30 Hemoglobin A1c % 9.5 % (4.2-6.3) H 08/02/18 07:05 Calcium 9.5 mg/dL (8.5-10.1) 08/04/18 05:30 Iron 84 ug/dL (38-169) 08/03/18 05:30 TIBC 262 ug/dL (250-450) 08/03/18 05:30 Iron Saturation 32 % (15-55) 08/03/18 05:30 Ferritin 154.4 ng/ml (8-388) 08/03/18 05:30 Total Bilirubin 0.4 mg/dL (0.2-1) 08/02/18 06:00 AST 16 U/L (15-37) 08/02/18 06:00 ALT 28 U/L (13-61) 08/02/18 06:00 Alkaline Phosphatase 67 U/L (45-117) 08/02/18 06:00 Troponin I < 0.02 ng/ml (0.00-0.05) 08/01/18 11:33 B-Natriuretic Peptide 13.2 pg/ml (5-125) 08/01/18 11:39 Total Protein 7.7 g/dl (6.4-8.2) 08/02/18 06:00 Albumin 3.4 g/dl (3.4-5.0) 08/02/18 06:00 Triglycerides 171 mg/dL (0-150) H 08/02/18 06:00 Cholesterol 220 mg/dL (50-200) H 08/02/18 06:00 Total LDL Cholesterol 134 mg/dL (5-100) H 08/02/18 06:00 HDL Cholesterol 56 mg/dL (40-60) 08/02/18 06:00 Total Amylase 63 U/L (25-115) 08/02/18 06:00 Lipase 170 U/L (73-393) 08/02/18 06:00 CA 19-9 Antigen 29 U/mL (0-35) 08/03/18 05:30 Urine Color Ltyellow 08/01/18 13:00 Urine Appearance Clear 08/01/18 13:00 Urine pH 7.0 (5.0-8.0) 08/01/18 13:00 Ur Specific Elliott 1.022 (1.010-1.035) 08/01/18 13:00 Urine Protein 2+ (NEGATIVE) H 08/01/18 13:00 Urine Glucose (UA) 3+ (NEGATIVE) H 08/01/18 13:00 Urine Ketones Negative (NEGATIVE) 08/01/18 13:00 Urine Blood Negative (NEGATIVE) 08/01/18 13:00 Urine Nitrite Negative (NEGATIVE) 08/01/18 13:00 Urine Bilirubin Negative (<2.0 mg/dL) 08/01/18 13:00 Urine Urobilinogen Negative mg/dL (0.2-1.0) 08/01/18 13:00 Ur Leukocyte Esterase Negative (NEGATIVE) 08/01/18 13:00 Urine WBC (Auto) <1 /hpf (3-5) 08/01/18 13:00 Urine RBC (Auto) 1 /hpf (0-3) 08/01/18 13:00 Smooth Musc &[employer] SAF[employer] INSPECTOR Intrp 18 Units (0-19) 08/03/18 05:30 Tiss Transglutamin IgG < 2 U/mL (0-5) 08/03/18 05:30 Tiss Transglutamin IgA < 2 U/mL (0-3) 08/03/18 05:30 Hep A IgM Ab Confirm Negative (Negative) 08/03/18 05:30 Hepatitis A Ab Total Positive (Negative) H 08/03/18 05:30 Hep Bs Antigen Negative (Negative) 08/03/18 05:30 Hep Bs Antibody Non reactive (.) 08/03/18 05:30 Hep B Core Total Ab Positive (Negative) H 08/03/18 05:30 Microbiology 08/01/18 13:00 Urine - Urine Clean Catch Urine Culture - Final Enterococcus Faecalis Active Medications Amlodipine Besylate (Norvasc -) 10 mg PO DAILY [facility] Last Admin: 08/04/18 09:26 Dose: 10 mg Insulin Detemir (Levemir Vial) 10 units SQ HS [facility] Lisinopril (Prinivil) 10 mg PO DAILY [facility] Last Admin: 08/04/18 09:25 Dose: 10 mg Lorazepam (Ativan -) 1 mg PO ONCE ONE Stop: 08/04/18 07:18 Metoclopramide HCl (Reglan -) 10 mg PO TIDAC [facility] Last Admin: 08/04/18 17:17 Dose: 10 mg Metoprolol Tartrate (Lopressor -) 100 mg PO BID [facility] Last Admin: 08/04/18 09:25 Dose: 100 mg Morphine Sulfate (Ms Contin -) 15 mg PO BID [facility] Last Admin: 08/04/18 09:44 Dose: 15 mg Non-Formulary Medication (Naloxegol Oxalate [Movantik]) 0 mg PO DAILY [facility] Last Admin: 08/04/18 09:26 Dose: 25 mg Oxycodone HCl (Roxicodone -) 10 mg PO BID [facility] Pantoprazole Sodium (Protonix -) 40 mg PO BID [facility] Last Admin: 08/04/18 09:25 Dose: 40 mg Polyethylene Glycol (Miralax (For Daily Use) -) 17 gm PO TID [facility] Last Admin: 08/04/18 13:22 Dose: 17 grams Sitagliptin Phosphate (Januvia -) 100 mg PO 0700 [facility] assment # abd pain new pancreatic mass on CT Ca 19-9 29 will need further worup as out patient reports was unable to do MRI de to claustrophobia will try open MRI as out patient appreciate GI recommendation to follow up with Dr Angel Isaac ( [facility]) component of gastroparesis / and long standing use os narcotics probable causes of N/V and abdominal pain continue per GI recommendation -- Reglan / Miralax / Movantik #DM only on Januvia -- will start insulin continue coverage for ACHS # HTN continue home meds # HIV last viral load not detectable # chronic pain controlled on current management - followed by pain management as out patient Problem List - Problems (1) Abdominal pain Code(s): R10.9 - UNSPECIFIED ABDOMINAL PAIN (2) Lightheadedness Code(s): R42 - DIZZINESS AND GIDDINESS (3) Nausea Code(s): R11.0 - NAUSEA (4) Dizziness Code(s): R42 - DIZZINESS AND GIDDINESS (5) Pre-syncope Code(s): R55 - SYNCOPE AND COLLAPSE (6) Diabetes mellitus Code(s): E11.9 - TYPE 2 DIABETES MELLITUS WITHOUT COMPLICATIONS (7) Hypertension Code(s): I10 - ESSENTIAL (PRIMARY) HYPERTENSION
[2018-08-04] MEDS ORDERED: INSULIN (LEVEMIR) 100 UNITS/ML UNITS SQ SCH (22:00)
[2018-08-05] MEDS: METOCLOPRAMIDE HCL 10 MG TABLET (FP) PO SCH ×3 (06:45→17:22)
[2018-08-05] MEDS: oxyCODONE HCL 5 MG TABLET PO SCH ×2 (06:45→17:22)
[2018-08-05] MEDS: POLYETHYLENE GLYCOL 3350 119 GM BTL PO SCH ×2 (06:46→13:04)
[2018-08-05] MEDS ORDERED: sitaGLIPtin PHOSPHATE 100 MG TABLET (FP) PO SCH (07:00)
[2018-08-05 08:04] LABS: ALBUMIN 3.2 g/dl (3.4-5.0); ALK PHOS 65 U/L (45-117); ANION GAP 4 MMOL/L (8-16); BILIRUBIN,TOTAL 0.4 mg/dL (0.2-1); BLOOD UREA NITROGEN 17 mg/dL (7-18); CHLORIDE 101 mmol/L (98-107); CO2 32 mmol/L (21-32); GLUCOSE,RANDOM 158 mg/dL (74-106); POTASSIUM 4.1 mmol/L (3.5-5.1); SGOT/AST 19 U/L (15-37); SGPT/ALT 26 U/L (13-61); SODIUM 136 mmol/L (136-145); TOT PROT 7.3 g/dl (6.4-8.2)
[2018-08-05] MEDS ORDERED: PT OWN MED DRAWER 7, Y5N ONE (09:20)
[2018-08-05] MEDS: morphine SO4 SUSTAINED ACTING 15 MG TABLET.SA PO SCH (09:29)
[2018-08-05] MEDS: LISINOPRIL 10 MG TABLET (FP) PO SCH (09:29)
[2018-08-05] MEDS: METOPROLOL TARTRATE 50 MG TABLET (FP) PO SCH (09:29)
[2018-08-05] MEDS: NALOXEGOL OXALATE PO SCH (09:30)
[2018-08-05] MEDS: PANTOPRAZOLE 40 MG TABLET (FP) PO SCH (09:30)
[2018-08-05] MEDS: amLODIPine BESYLATE 10 MG TABLET (FP) PO SCH (09:30)
--- NOTE | 2018-08-05 11:41 | PN ---
Progress Note (short form) - Note Progress Note: s: no cp sob palps dizzy o: Vital Signs Period Temp Pulse Resp BP Sys/Johnson Pulse Ox Last 24 Hr 97.8 F-98.5 F 69-80 20-20 114-148/55-91 97-97 nad no jvd rrr s1s2 no mrg cta bl nl eff aaox3 no le e/c/c abd nt nd pos bs no jaundice diaphoresis Current Medications Generic Name Dose Route Start Last Admin Trade Name Charlie PRN Reason Stop Dose Admin Amlodipine Besylate 10 mg 08/04/18 10:00 08/05/18 09:30 Norvasc - PO 10 mg DAILY MANNY Administration Insulin Detemir 10 units 08/04/18 22:00 08/04/18 22:20 Levemir Vial SQ 10 units HS MANNY Administration Lisinopril 10 mg 08/04/18 10:00 08/05/18 09:29 Prinivil PO 10 mg DAILY MANNY Administration Lorazepam 1 mg 08/04/18 07:17 Ativan - PO 08/04/18 07:18 ONCE ONE Metoclopramide HCl 10 mg 08/04/18 07:00 08/05/18 11:23 Reglan - PO 10 mg TIDAC MANNY Administration Metoprolol Tartrate 100 mg 08/04/18 10:00 08/05/18 09:29 Lopressor - PO 100 mg BID MANNY Administration Morphine Sulfate 15 mg 08/04/18 10:00 08/05/18 09:29 Ms Contin - PO 15 mg BID MANNY Administration Non-Formulary Medication 0 mg 08/03/18 17:40 08/05/18 09:30 Naloxegol Oxalate [Movantik] PO 25 mg DAILY MANNY Administration Oxycodone HCl 10 mg 08/05/18 06:00 08/05/18 06:45 Roxicodone - PO 10 mg DAILY@0600,1800 MANNY Administration Pantoprazole Sodium 40 mg 08/04/18 10:00 08/05/18 09:30 Protonix - PO 40 mg BID MANNY Administration Polyethylene Glycol 17 gm 08/04/18 14:00 08/05/18 06:46 Miralax (For Daily Use) - PO 17 grams TID MANNY Administration Sitagliptin Phosphate 100 mg 08/05/18 07:00 08/05/18 06:45 Januvia - PO 100 mg 0700 MANNY Administration CBC, BMP 08/04/18 05:30 08/05/18 06:00 ecg: sr nl intervals no ischemic changes cxr: clear lungs tele: sr echo 07/2018: nl lv/rv, no sig valve path a/p: 68 m hx htn, dm, hiv, here with presyncope. presyncope: -possibly vasovagal given n/v symptoms as well -tele, ecg, echo benign htn: -cont home meds dm: -elevated BS in ER, meds per primary n/v: -ct abd showing pancreatic mass, plans per GI cardiac tenorio stable, dc tele
--- NOTE | 2018-08-05 17:47 | DS ---
Physical Examination Vital Signs: Vital Signs Temperature 98.1 F 08/05/18 14:00 Pulse Rate 73 08/05/18 14:00 Respiratory Rate 20 08/05/18 14:00 Blood Pressure 118/71 08/05/18 14:00 O2 Sat by Pulse Oximetry (%) 97 08/05/18 09:00 Findings/Remarks: The patient is a 68-year-old male, with a past medical history of HTN, internal heart monitor (placed at [facility]), NIDDM, HIV with undetectable viral load, GERD, vertigo, who presents to the ED with nausea, vomiting, and elevated BS day of admission. Patient states he was standing in the morning and suddenly became nauseous/weak and felt like he was going to fall. He was able to sit down and called his daughter who brought him to the ER. BS was noted to be 259 in the am and 289 while in the ER. He reports multiple episodes of vomiting but denies any blood in the emesis. States he has been vomiting what he has been eating. He is also complaining of diffuse abdominal pain and constipation. patient reports has had previous similar episodes but have been milder and not lasting as long. # abd pain new pancreatic mass on CT Ca 19-9 29 will need further workup as out patient reports was unable to do MRI due to claustrophobia will try open MRI as out patient appreciate GI recommendation to follow up with Dr Angel Isaac ( [facility]) component of gastroparesis / and long standing use of narcotics probable causes of N/V and abdominal pain continue per GI recommendation -- Reglan / Miralax / Movantik #DM only on Januvia -- will resume PO meds patient prefers to continue meds - with added compliance with diet will defer insulin at this time # HTN continue home meds # HIV last viral load not detectable # chronic pain controlled on current management - followed by pain management as out patient Constitutional: Yes: Well Nourished, No Distress, Calm Eyes: Yes: WNL, Conjunctiva Clear, EOM Intact HENT: Yes: WNL, Atraumatic, Normocephalic Neck: Yes: Supple, Trachea Midline Cardiovascular: Yes: WNL, Regular Rate and Rhythm Respiratory: Yes: Regular, CTA Bilaterally Gastrointestinal: Yes: Normal Bowel Sounds, Soft, Abdomen, Obese ...Rectal Exam: Yes: Deferred Renal/: Yes: WNL Breast(s): Yes: WNL Musculoskeletal: Yes: WNL Extremities: Yes: WNL Edema: No Peripheral Pulses WNL: Yes Integumentary: Yes: WNL Labs: CBC, BMP 08/04/18 05:30 08/05/18 06:00 Discharge Summary Reason For Visit: PRE-SYNCOPE/VOMITING Current Active Problems Constipation due to neurogenic bowel (Acute) Constipation due to opioid therapy (Acute) Coronary arteriosclerosis (Acute) Diabetes mellitus (Acute) Fatty infiltration of liver (Acute) Gastroparesis due to DM (Acute) HIV (human immunodeficiency virus infection) (Acute) History of cardiac monitoring (Acute) Hypertension (Acute) Narcotic bowel syndrome (Acute) Nausea (Acute) Nephrolithiasis (Acute) Neuropathy due to type 2 diabetes mellitus (Acute) Pancreatic mass (Acute) Pre-syncope (Acute) Vomiting (Acute) Condition: Stable - Instructions Referrals: Lilli Swan MD [Staff Physician] - Disposition: HOME - Home Medications Comprehensive Discharge Medication List: Ambulatory Orders Aspirin [ASA -] 81 mg PO DAILY #0 tab.chew 11/30/12 Lisinopril [Prinivil] 10 mg PO DAILY #0 tablet 11/30/12 Emtricitabine/Tenofovir [Truvada -] 1 tab PO DAILY 02/27/17 Meclizine HCl 25 mg PO DAILY 02/27/17 Morphine Sulfate 15 mg PO BID 02/27/17 Omeprazole 20 mg PO DAILY 02/27/17 Oxycodone HCl 10 mg PO BID 02/27/17 Glipizide [Glipizide ER] 5 mg PO DAILY #30 tab.er.24 03/02/17 Amlodipine Besylate 10 mg PO DAILY 10/21/17 Metoprolol Tartrate 100 mg PO BID 10/21/17 Naloxegol Oxalate [Movantik] 25 mg PO DAILY 10/21/17 Sitagliptin Phosphate [Januvia] 100 mg PO DAILY 10/21/17
[2018-08-05] MEDS ORDERED: INSULIN (NOVOLOG) ASPART 100 UNITS/ML 10ML VIAL SQ ONE (17:59)
[2018-08-05 18:21] VITALS: BP 128/74; PULSE 74; TEMP 98.2
[2018-08-07 08:06] LABS: ALPHA 2 MACROGLOBULINS,QN 315 mg/dL (110-276); ALT(SGPT)P5P 24 IU/L (0-55); CHOLESTEROL TOTAL 201 mg/dL (100-199); FIBROSIS SCORE 0.43 (0.00-0.21); GGT= 20 IU/L (0-65); GLUCOSE SERUM 220 mg/dL (65-99); HEIGHT 71 in (.); WEIGHT- 223 LBS (.)
== END 2018-08-05 18:58 | disposition home or self-care (01) | DRG 74 ==
LOC: JER 10:29 → JERBED 12:50 → MERGE 14:15 → OBSVTOIN 14:15 → J4W 21:28
PROVIDERS: ADMIT Family Medicine; ATTEND Family Medicine
DX: E11.43 Type 2 diabetes mellitus with diabetic autonomic (poly)neuropathy (principal); E87.1 Hypo-osmolality and hyponatremia; R55 Syncope and collapse; I10 Essential (primary) hypertension; K21.9 Gastro-esophageal reflux disease without esophagitis; K31.84 Gastroparesis; K86.9 Disease of pancreas, unspecified; K59.00 Constipation, unspecified; K76.0 Fatty (change of) liver, not elsewhere classified
CPT/HCPCS: 36415; 71045-TC-FY; 74177-TC; 74182-TC; 80048; 80053; 80061; 81003; 81015; 82105; 82150; 82172; 82247; 82465; 82728; 82787; 82803; 82947; 82962; 82977; 83010; 83036; 83516; 83540; 83550; 83690; 83721; 83880; 83883; 84450; 84460; 84478; 84484; 85025; 85027; 85610; 86038; 86301; 86704; 86706; 86708; 86803; 87086; 87186; 87340; 93005; 93010; 93306-TC; 99285-25; G0378; J7030

== ENCOUNTER 2018-10-12 09:24 | Emergency (ER) | payer OTHER ==
[2018-10-12 09:30] VITALS: BMI 32.1
--- NOTE | 2018-10-12 09:37 | PDOC ---
History of Present Illness - General Chief Complaint: Pain Stated Complaint: BODY PAIN Time Seen by Provider: 10/12/18 09:36 History Source: Patient - History of Present Illness Initial Comments: 10/12/18 10:21 The patient is a 68 year old male with a PMH of HIV (undectectable viral load), HTN, HLD, IDDM and peripheral neuropathy who presents to the ED c/o 1 day h/o abdominal pain. Pain started yesterday evening and is sharp, constant and localized to his lower quadrants. Pain worsened overnight and this morning, especially in the 30 minutes prior to presentation prompting his visit to our ED. Last BM was yesterday and was normal. States he has been vomiting PO liquids but ate a roll this morning without vomiting. Endorses intermittent h/ o dysuria for a few weeks. H/o recent imaging with pancreatic mass, but no follow-up evaluation. NKDA Surgical: cardiac cath Past History - Past Medical History Allergies/Adverse Reactions: Allergies Allergy/AdvReac Type Severity Reaction Status Date / Time No Known Allergies Allergy Verified 10/12/18 11:06 Home Medications: Ambulatory Orders Aspirin [ASA -] 81 mg PO DAILY #0 tab.chew 11/30/12 Lisinopril [Prinivil] 10 mg PO DAILY #0 tablet 11/30/12 Metoprolol Tartrate [Lopressor -] 50 mg PO BID #14 tablet 11/30/12 Emtricitabine/Tenofovir [Truvada -] 1 tab PO DAILY 02/27/17 Meclizine HCl 25 mg PO DAILY 02/27/17 Morphine Sulfate 15 mg PO BID 02/27/17 Omeprazole 20 mg PO DAILY 02/27/17 Oxycodone HCl 10 mg PO BID 02/27/17 Glipizide [Glipizide ER] 2.5 mg PO DAILY #30 tab.er.24 03/02/17 Levofloxacin [Levaquin] 500 mg PO DAILY #10 tablet 03/16/17 metroNIDAZOLE [Flagyl -] 500 mg PO Q8H #30 tablet 03/16/17 Amlodipine Besylate 10 mg PO DAILY 10/21/17 Glipizide 10 mg PO BID 10/21/17 Lisinopril 10 mg PO DAILY 10/21/17 Metoprolol Tartrate 100 mg PO BID 10/21/17 Morphine [Morphine Sulfate] 15 mg PO BID 10/21/17 Naloxegol Oxalate [Movantik] 25 mg PO DAILY 10/21/17 Sitagliptin Phosphate [Januvia] 100 mg PO DAILY 10/21/17 oxyCODONE HCL [Roxicodone -] 10 mg PO BID 10/21/17 Azithromycin [Zithromax -] 250 mg PO UTDICT #6 tab 07/16/18 Meclizine HCl 50 mg PO BID #14 tablet 07/16/18 Metoclopramide HCl [Reglan -] 10 mg PO TIDAC 30 Days #120 tablet 08/05/18 Pantoprazole Sodium [Protonix -] 40 mg PO BID 30 Days #60 tablet.ec 08/05/18 Polyethylene Glycol 3350 [Miralax 119 gm Btl -] 17 gm PO TID bottle 08/05/18 Anemia: No Asthma: No Cancer: No Cardiac Disorders: Yes (internal heart monitor) CVA: Yes (2002 2010) COPD: No CHF: No Dementia: No Diabetes: Yes GI Disorders: Yes (GERD) Disorders: Yes (frequency uses flomax) HTN: Yes Hypercholesterolemia: Yes Kidney Stones: Yes (BY HX) Liver Disease: Yes (hep a, b, c) Seizures: No Thyroid Disease: No - Surgical History Abdominal Surgery: No Appendectomy: No Cardiac Surgery: Yes (cardiac cath no stents) Cholecystectomy: (GALLSTONES) Lung Surgery: No Neurologic Surgery: No Orthopedic Surgery: No - Immunization History Immunization Up to Date: Yes - Suicide/Smoking/Psychosocial Hx Smoking Status: No Smoking History: Never smoked Years of Tobacco Use: 5 Have you smoked in the past 12 months: No Number of Cigarettes Smoked Daily: 3 If you are a former smoker, when did you quit?: quit 2009 Cigars Per Day: 0 Hx Alcohol Use: No Drug/Substance Use Hx: No Substance Use Type: None, Alcohol Hx Substance Use Treatment: No *Physical Exam - Vital Signs Last Vital Signs Temp Pulse Resp BP Pulse Ox 98.6 F 84 18 194/113 H 100 10/12/18 09:28 10/12/18 09:28 10/12/18 09:28 10/12/18 09:28 10/12/18 09:28 - Physical Exam General Appearance: Yes: Nourished, Appropriately Dressed HEENT: positive: Normal Voice, Hearing Grossly Normal Neck: positive: Trachea midline, Supple Respiratory/Chest: positive: Lungs Clear, Normal Breath Sounds Cardiovascular: positive: S1, S2. negative: Edema, JVD Vascular Pulses: Dorsalis-Pedis (R): 2+, Doralis-Pedis (L): 2+ Gastrointestinal/Abdominal: positive: Other (distended, (+) bowels sounds, mild TTP on deep palpation) Musculoskeletal: negative: CVA Tenderness (R), CVA Tenderness (L) Extremity: positive: Normal Capillary Refill, Normal Inspection Integumentary: positive: Normal Color, Dry, Warm Neurologic: positive: Fully Oriented, Alert ED Treatment Course - LABORATORY CBC & Chemistry Diagram: 10/12/18 10:10 10/12/18 09:59 Medical Decision Making - Medical Decision Making 10/12/18 10:22 68 year old male with abdominal pain. Hypertensive (194/113) @ triage, repeat BP @ bedside 185/99. PE significant for diffuse abdominal TTP with some guarding. Frontal diagnosis: acute abdomen including: cholecystitis vs. appendicits, also includes SBO, mesenteric ischemia though less likely. Also consider UTI/pyelonephritis, pancreatitis, colitis. PLAN: 1. Lipase, Lactic Acid, CBC/CMP 2. CT Abdomen 3. IV fluids, pain control with Morphine Reassess 10/12/18 12:21 Call received from lab - Lactic Acid 2.5 - will continue oral hydration 10/12/18 13:25 Patient reassessed @ bedside. Symptomatically improved. IV fluids hanging Will repeat Lactic Acid 10/12/18 14:48 CT abdomen shows constipation Repeat Lactic Acid 1.5 Patient remains hypertensive (170's-190's/100's), however notes he measures BP at home and has elevated BP so likely @ baseline. Will discharge home with return precautions and PMD follow-up. I discussed the physical exam findings, ancillary test results and final diagnoses with the patient. I answered all of the patient's questions. The patient was satisfied with the care received and felt comfortable with the discharge plan and treatment plan. The patient will call their primary care physician within 24 hours to arrange follow-up and will return to the Emergency Department with any new, persistent or worsening symptoms. *DC/Admit/Observation/Transfer Diagnosis at time of Disposition: Abdominal pain - Discharge Dispostion Disposition: HOME Condition at time of disposition: Good - Referrals Referrals: Lilli Swan MD [Primary Care Provider] - - Patient Instructions Printed Discharge Instructions: DI for Abdominal Pain-Adult Additional Instructions: You were evaluated today for your abdominal pain. At this time you are safe for discharge home. A cat scan of your abdomen showed no concerning findings, however previous cat scans noted a pancreatic mass. You should follow-up with your primary care doctor in the next three days for further evaluation. Your care is not complete until you are evaluated by your primary care doctor. Return to the ED for any new/worsening/concerning symptoms. - Post Discharge Activity
[2018-10-12] MEDS ORDERED: morphine CARPU-JECT 4 MG/1 ML DISP.SYRIN IVPUSH ONE (10:01)
[2018-10-12] MEDS ORDERED: morphine SULFATE 4 MG/ML VIAL ONE (10:24)
[2018-10-12 10:53] LABS: BASO % 0.5 % (0-2.0); EOS % 2.1 % (0-4.5); HEMATOCRIT 38.3 % (35.4-49); HEMOGLOBIN 12.7 GM/dL (11.7-16.9); LYMPH % 34.2 % (8-40); MCH 29.2 pg (25.7-33.7); MCHC 33.2 g/dl (32.0-35.9); MEAN CELL VOLUME 87.9 fl (80-96); MEAN PLT VOLUME 8.2 fl (7.5-11.1); MONO % 7.3 % (3.8-10.2); NEUT % 55.9 % (42.8-82.8); PLATELET COUNT 183 K/MM3 (134-434); RBC 4.36 M/mm3 (4.00-5.60); RDW 15.1 % (11.9-15.9); WHITE BLOOD COUNT 6.5 K/mm3 (4.0-10.0)
[2018-10-12 11:20] LABS: ALBUMIN 3.8 g/dl (3.4-5.0); ALK PHOS 76 U/L (45-117); ANION GAP 6 MMOL/L (8-16); BILIRUBIN,TOTAL 0.4 mg/dL (0.2-1); BLOOD UREA NITROGEN 12 mg/dL (7-18); CALCIUM 10.1 mg/dL (8.5-10.1); CHLORIDE 101 mmol/L (98-107); CO2 30 mmol/L (21-32); CREATININE 0.9 mg/dL (0.55-1.3); GLUCOSE,RANDOM 199 mg/dL (74-106); LIPASE 97 U/L (73-393); N-TERMINAL BNP 27.2 pg/ml (5-125); POTASSIUM 3.7 mmol/L (3.5-5.1); SGOT/AST 23 U/L (15-37); SGPT/ALT 22 U/L (13-61); SODIUM 137 mmol/L (136-145); TOT PROT 8.4 g/dl (6.4-8.2)
[2018-10-12 11:40] LABS: PH,URINE 6.5 (5.0-8.0); URINE APPEARANCE CLEAR; URINE BACTERIA 0.8 /hpf (NEGATIVE); URINE BILIRUBIN NEGATIVE (NEGATIVE); URINE CASTS 2 /lpf (0-8); URINE COLOR YELLOW; URINE GLUCOSE (UA) TRACE (NEGATIVE); URINE KETONE TRACE (NEGATIVE); URINE LEUK ESTERASE NEGATIVE (NEGATIVE); URINE NITRITE NEGATIVE (NEGATIVE); URINE PROTEIN 3+ (NEGATIVE); URINE RBC 2 /hpf (0-4); URINE WBC 1 /hpf (0-5)
[2018-10-12] MEDS ORDERED: SODIUM CHLORIDE 0.9% 500 ML INFUS.BAG IV ONE (12:20)
--- NOTE | 2018-10-12 12:24 | PDOC ---
Documentation entered by Cristela Abarca SCRIBE, acting as scribe for Jose Antonio Bains MD. Jose Antonio Bains MD: This documentation has been prepared by the Rima crabtree Amanda, SCRIBE, under my direction and personally reviewed by me in its entirety. I confirm that the documentation accurately reflects all work, treatment, procedures, and medical decision making performed by me. Attending Attestation - Resident Resident Name: TamannaCiarra - ED Attending Attestation I have performed the following: I have examined & evaluated the patient, The case was reviewed & discussed with the resident, I agree w/resident's findings & plan, Exceptions are as noted - HPI HPI: 10/12/18 10:02 The patient is a 68 year old male with a significant past medical history of HTN , HLD, internal heart monitor (placed at [facility]), NIDDM, HIV with undetectable viral load, GERD, vertigo, who presents to the ED for evaluation of lower abdominal pain for 3 days which has increased in severity about 30 minutes prior to ED arrival. The patient also reports associated subjective fevers, chills, nausea, NBNB vomiting after eating intermittently but states he was able to keep breakfast down this morning. DEnies post prandial exacerbation of pain. He reports his abdominal pain is localized to the central lower abdomen just near his umbilicus. Secondarily, the patient reports being told he had a "mass on the pancreas" but denies following up for further evaluation. Denies CP, SOB, headache, focal weakness/numbness, dysuria, hematira, frequency , LE edema. PCP: Dr. Swan - Physicial Exam PE: 10/12/18 10:12 GENERAL: Awake, alert, and fully oriented, in no acute distress but appears uncomfortable EYES: PERRLA, EOMI, sclera anicteric, conjunctiva clear ENT: Oropharynx clear without exudates. Moist mucosa NECK: Normal ROM, supple, no lymphadenopathy, JVD, or masses LUNGS: Breath sounds equal, clear to auscultation bilaterally. No wheezes, and no crackles HEART: Regular rate and rhythm, normal S1 and S2, no murmurs, rubs or gallops ABDOMEN: MIld abd distention, diffuse abd ttp, +guarding EXTREMITIES: Normal range of motion, no edema. No cords, erythema, or tenderness NEUROLOGICAL: Normal speech, cranial nerves intact, equal strength and sensation b/l SKIN: Warm, Dry, normal turgor, no rashes or lesions noted. - Medical Decision Making 10/12/18 11:45 68yo M with MMP including HIV, ?recent pancreatic mass prsents to the ED with progressive abd pain, N/V for 3 days. PT states he was able to keep a roll down this morning however due to pain, presented to the ED. BP initially elevated, on rpt during initial evaluation 158/98 w/o intervention. Exam with diffuse abd ttp. DDx includes BNLT colitis vs enteritis vs pancreatitis vs appendicits vs UTI vs renal colic. Plan for labs, UA, CTAP, sx control, reassess. 10/12/18 12:55 Abd pain completely resolved at this time 10/12/18 15:08 Labs with lactic 2.5, after 1L fluids down to 1.5 REmaining labs unremarkable UA neg for infection CTAP negative for acute pathology - of note, no pancreatic mass seen Pt remains asymptomatic Asking for food, tolerating REquests DC home Rpt BP elevated to 180/109. Pt states this is where his BP lives. Advised pt to f/u with PMD within 1 week for rpt BP and better BP control. Pt expresses understanding. Pt to be discharged with strict return precations I discussed the physical exam findings, ancillary test results and final diagnoses with the patient. I answered all of the patient's questions. The patient was satisfied with the care received and felt comfortable with the discharge plan and treatment plan. The patient will call their primary care physician within 24 hours to arrange follow-up and will return to the Emergency Department with any new, persistent or worsening symptoms. Heart Score/ECG Review #1 10/12/18 16:39 EKG read and interpreted by me: NSR, rate 61. Normal axis and intervals. No LESLIE.
[2018-10-12] MEDS ORDERED: METOPROLOL TARTRATE 50 MG TABLET (FP) PO ONE (15:13)
[2018-10-12] MEDS ORDERED: ACETAMINOPHEN 500 MG TABLET (FP) PO ONE (15:15)
[2018-10-12] MEDS ORDERED: METOPROLOL TARTRATE 50 MG TABLET (FP) ONE (15:41)
[2018-10-12] MEDS ORDERED: ACETAMINOPHEN 325 MG TABLET (FP) ONE (15:41)
[2018-10-12 16:17] VITALS: TEMP 98.1
[2018-10-12 16:18] VITALS: BP 195/110; PULSE 68
--- NOTE | 2018-10-13 14:21 | EKG ---
Test Reason : Blood Pressure : / mmHG Vent. Rate : 061 BPM Atrial Rate : 061 BPM P-R Int : 182 ms QRS Dur : 092 ms QT Int : 408 ms P-R-T Axes : 063 -14 000 degrees QTc Int : 410 ms NORMAL SINUS RHYTHM POSSIBLE LEFT ATRIAL ENLARGEMENT LEFT VENTRICULAR HYPERTROPHY ABNORMAL ECG Confirmed by MD RICHARD, SAMAN ([id number]) on 10/13/2018 2:20:59 PM Referred By: Confirmed By:SAMAN RAMOS MD
== END 2018-10-12 16:59 | disposition home or self-care (01) ==
LOC: JER 09:24
PROC: 3E033NZ Introduction of Analgesics, Hypnotics, Sedatives into Peripheral Vein, Percutaneous Approach (ICD-10-PCS; principal; 2018-10-12)
DX: K59.00 Constipation, unspecified (principal); R10.30 Lower abdominal pain, unspecified; I10 Essential (primary) hypertension; E78.00 Pure hypercholesterolemia, unspecified; E11.42 Type 2 diabetes mellitus with diabetic polyneuropathy; Z79.84 Long term (current) use of oral hypoglycemic drugs; Z21 Asymptomatic human immunodeficiency virus [HIV] infection status; Z86.19 Personal history of other infectious and parasitic diseases; Z98.61 Coronary angioplasty status; Z86.73 Personal history of transient ischemic attack (TIA), and cerebral infarction without residual deficits; Z87.442 Personal history of urinary calculi
CPT/HCPCS: 36415; 74019-TC-FY; 74177-TC; 80053; 81003; 82550; 82962; 83605; 83690; 83880; 84484; 85025; 87086; 93005; 93010; 96374; 99282-25

== ENCOUNTER 2019-01-16 00:12 | Emergency (ER) | payer OTHER ==
[2019-01-16 01:23] VITALS: TEMP 98.4; BMI 30.7
--- NOTE | 2019-01-16 01:37 | PDOC ---
History of Present Illness - General Chief Complaint: Pain Stated Complaint: PAIN Time Seen by Provider: 01/16/19 01:24 History Source: Patient, Old Records, Other (I-STOP) Exam Limitations: No Limitations - History of Present Illness Initial Comments: HPI: 69 y/o male presenting to [facility] ER complaining of pain everywhere. Believes it may be worse across his forehead but everything is generally painful. Pt denies trauma, acute nausea/vomiting, chest pain, SOB, diarrhea, or urinary symptoms. Pt is on chronic opiates, Oxycontin ER 20mg TID, for pain by Dr. Swan. Reports taking it last yesterday and cannot refill the prescription until . States he occasionally takes a few more pain pills when his pain is worse. Denies attempting relief with acetaminophen or ibuprofen. PCP: Dr. Swan Medical Hx: HIV (undetectable viral load), HTN, HLD, IDDM and peripheral neuropathy Review of Systems: In addition to that documented in the HPI above, the additional ROS was obtained : Constitutional: Denies fevers or chills ENMT: Denies sore throat CV: Denies chest pain Resp: Denies SOB GI: Denies vomiting or diarrhea : Denies dysuria, hematuria, or urinary frequency Physical Examination: Constitutional: Well-developed, well-nourished adult male in no acute distress or obvious discomfort. Found sitting upright on edge of hospital hallway bed. Alert and oriented x4. Answered all questions appropriately and completely. Speech was non-labored, non-pressured. Head: Normocephalic. No obvious external signs of trauma. Cardiovascular / Chest: Regular rate and regular rhythm. No murmur, rubs, clicks , or gallops. Peripheral pulses: radial pulses full. No anterior chest wall tenderness. No pretibial edema. Respiratory: Breathing unlabored. Equal chest rise and fall. Clear to auscultation bilaterally. No stridor, no wheezing, no rhonchi. Gastrointestinal: abdomen is soft, non-tender, non-distended. Neuro: Alert and oriented. Moving all four extremities spontaneously. Skin: Warm, dry, and intact. Psych: Affect: appropriate. Mood: normal. MDM: *Reviewed vital signs, nursing notes, and prior visit documentation (if available). 69 y/o male presenting with nonfocal, diffuse body pain in setting of h/o of chronic pain managed with TID Oxycontin. Ran out of prescription multiple days before he is able to refill the medication. Afebrile. Vitals unremarkable for hypotension or tachycardia. Physical exam as described above. Well appearing. Low suspicion for acute process, rather suspect mild withdrawal from chronic opiates. Will administer single dose of home Oxycontin and refer pt to PCP for further assistance. [place] I-STOP reviewed. Pt scheduled to refill the prescription on as reported. Pt reassessed and reports feeling better. Continue suspect uncomplicated acute opiate withdrawal in setting of known chronic pain. Discussed physical exam findings with pt. Answered all questions. Provided return precautions. Pt expressed verbal understanding and agreement with plan to discharge home with outpatient follow up. Will call Dr. Swan in the morning. Blayne Martini M.D., PGY2 Emergency Medicine Resident Past History - Past Medical History Allergies/Adverse Reactions: Allergies Allergy/AdvReac Type Severity Reaction Status Date / Time No Known Allergies Allergy Verified 10/12/18 11:06 Home Medications: Ambulatory Orders Aspirin [ASA -] 81 mg PO DAILY #0 tab.chew 11/30/12 Lisinopril [Prinivil] 10 mg PO DAILY #0 tablet 11/30/12 Metoprolol Tartrate [Lopressor -] 50 mg PO BID #14 tablet 11/30/12 Emtricitabine/Tenofovir [Truvada -] 1 tab PO DAILY 02/27/17 Meclizine HCl 25 mg PO DAILY 02/27/17 Morphine Sulfate 15 mg PO BID 02/27/17 Omeprazole 20 mg PO DAILY 02/27/17 Oxycodone HCl 10 mg PO BID 02/27/17 Glipizide [Glipizide ER] 2.5 mg PO DAILY #30 tab.er.24 03/02/17 Levofloxacin [Levaquin] 500 mg PO DAILY #10 tablet 03/16/17 metroNIDAZOLE [Flagyl -] 500 mg PO Q8H #30 tablet 03/16/17 Amlodipine Besylate 10 mg PO DAILY 10/21/17 Glipizide 10 mg PO BID 10/21/17 Lisinopril 10 mg PO DAILY 10/21/17 Metoprolol Tartrate 100 mg PO BID 10/21/17 Morphine [Morphine Sulfate] 15 mg PO BID 04/28/18 Naloxegol Oxalate [Movantik] 25 mg PO DAILY 10/21/17 Sitagliptin Phosphate [Januvia] 100 mg PO DAILY 10/21/17 oxyCODONE HCL [Roxicodone -] 10 mg PO BID 10/21/17 Azithromycin [Zithromax -] 250 mg PO UTDICT #6 tab 07/16/18 Meclizine HCl 50 mg PO BID #14 tablet 07/16/18 Metoclopramide HCl [Reglan -] 10 mg PO TIDAC 30 Days #120 tablet 08/05/18 Pantoprazole Sodium [Protonix -] 40 mg PO BID 30 Days #60 tablet.ec 08/05/18 Polyethylene Glycol 3350 [Miralax 119 gm Btl -] 17 gm PO TID bottle 08/05/18 Anemia: No Asthma: No Cancer: No Cardiac Disorders: Yes (internal heart monitor) CVA: Yes (2002 2010) COPD: No CHF: No Dementia: No Diabetes: Yes GI Disorders: Yes (GERD) Disorders: Yes (frequency uses flomax) HTN: Yes Hypercholesterolemia: Yes Kidney Stones: Yes (BY HX) Liver Disease: Yes (hep a, b, c) Seizures: No Thyroid Disease: No - Surgical History Abdominal Surgery: No Appendectomy: No Cardiac Surgery: Yes (cardiac cath no stents) Cholecystectomy: (GALLSTONES) Lung Surgery: No Neurologic Surgery: No Orthopedic Surgery: No - Immunization History Immunization Up to Date: Yes - Suicide/Smoking/Psychosocial Hx Smoking Status: No Smoking History: Never smoked Years of Tobacco Use: 5 Have you smoked in the past 12 months: No Number of Cigarettes Smoked Daily: 3 If you are a former smoker, when did you quit?: quit 2009 Cigars Per Day: 0 Hx Alcohol Use: No Drug/Substance Use Hx: No Substance Use Type: None, Alcohol Hx Substance Use Treatment: No *Physical Exam - Vital Signs Last Vital Signs Temp Pulse Resp BP Pulse Ox 98.4 F 74 20 153/83 98 01/16/19 00:20 01/16/19 00:20 01/16/19 00:20 01/16/19 00:01/16/19 00:20 *DC/Admit/Observation/Transfer Diagnosis at time of Disposition: Diffuse pain, Acute opioid withdrawal - Discharge Dispostion Disposition: HOME Condition at time of disposition: Improved Decision to Admit order: No - Referrals Referrals: Lilli Swan MD [Primary Care Provider] - - Patient Instructions Printed Discharge Instructions: DI for Prescription Opioid Use Additional Instructions: You were seen today for pain all over your body after not taking your pain medication for the past day. Your symptoms are likely related to your chronic pain and are unlikely to be because of emergency. You were given an Oxycontin tonight. You will need to see Dr. Swan for further help with your prescriptions. You can take over the counter Tylenol or Advil as needed for pain. Take as directed on the package insert. Do not exceed the recommended dosage. Go to the nearest emergency department if your condition worsens or you feel like you need additional emergency evaluation. Print Language: UZBEK - Post Discharge Activity
[2019-01-16] MEDS ORDERED: oxyCODONE HCL 20 MG SUSTAINED ACTING TABLET PO ONE (01:40)
--- NOTE | 2019-01-16 01:57 | PDOC ---
Documentation entered by Anabella Walton SCRIBE, acting as scribe for Sonya Ladd DO. Sonya Ladd DO: This documentation has been prepared by the Anton crabtree Adrianna, SCRIBE, under my direction and personally reviewed by me in its entirety. I confirm that the documentation accurately reflects all work, treatment, procedures, and medical decision making performed by me. Attending Attestation - Resident Resident Name: Blayne Martini - ED Attending Attestation I have performed the following: I have examined & evaluated the patient, The case was reviewed & discussed with the resident, I agree w/resident's findings & plan - HPI HPI: 01/16/19 01:54 68-year-old male with history of chronic pain requesting a prescription because he ran out of his chronic pain medications. Patient denies additional complaints. He does have a regular pain management physician. - Physicial Exam PE: 01/16/19 01:55 agree with resident exam - Medical Decision Making 01/16/19 01:55 68-year-old male with chronic pain requesting a prescription until his next refill due on Patient advised to call his regular pain management physician tomorrow to discuss necessity for a bridging prescription He will be given 1 dose of pain medication while in the emergency department
[2019-01-16] MEDS ORDERED: oxyCODONE HCL 10 MG SUSTAINED ACTING TABLET ONE (02:12)
[2019-01-16 03:17] VITALS: BP 150/85; PULSE 73
== END 2019-01-16 03:15 | disposition home or self-care (01) ==
LOC: JER 00:12
DX: M79.10 Myalgia, unspecified site (principal); Z21 Asymptomatic human immunodeficiency virus [HIV] infection status; I10 Essential (primary) hypertension; E78.5 Hyperlipidemia, unspecified; E11.9 Type 2 diabetes mellitus without complications; G62.9 Polyneuropathy, unspecified; Z79.84 Long term (current) use of oral hypoglycemic drugs; F11.23 Opioid dependence with withdrawal; G89.29 Other chronic pain
CPT/HCPCS: 99282-25

== ENCOUNTER 2019-06-08 21:09 | Inpatient (IN) | payer OTHER ==
[2019-06-08] MEDS ORDERED: SODIUM CHLORIDE 0.9% 500 ML INFUS.BAG IV ONE ×2 (21:56→23:45)
[2019-06-08] MEDS ORDERED: ACETAMINOPHEN 1000 MG/100 ML VIAL (NON FORMULARY) IVPB ONE (21:57)
--- NOTE | 2019-06-08 21:57 | PDOC ---
History of Present Illness - General History Source: Patient Exam Limitations: No Limitations - History of Present Illness Initial Comments: 06/08/19 21:58 69yM w PMHx T2DM, HTN, HLD, CVA, HIV, hepatitis, diabetic neuropathy, chronic low back pain, GERD, constipation presenting w dizziness, headache, and hyperglycemia. Pt is a poor historian. 5pm today, sat up in bed and felt sudden onset dizziness, nausea lasting 5 minutes, with subsequent suzette headache. Currently has headache and lower abdominal discomfort. Also endorsing increased urinary frequency. PCP started pt on insulin 3d ago but pt could not afford prescription based on insurance plan. Pt did not take insulin before, still taking metformin and glipizide. EMS measured BG 500 en route to hospital. Denies fever, cough, vomiting, chest/AB pain, pyuria. Pt endorses chronic leg weakness and numbness d/t DM neuropathy. Pt cannot recall chronic deficits from CVA. <Yang Pat - Last Filed: 06/08/19 23:57> <Rojelio Greco - Last Filed: 06/09/19 01:29> - General Chief Complaint: Blood Sugar Problem Stated Complaint: DIABETIC EMERGENCY Time Seen by Provider: 06/08/19 21:39 NIH Stroke Scale - Initial Evaluation Level of consciousness: Alert Ask patient the month and their age: Answers both correctly Ask patient to open & close eyes; make fist and let go: Obeys both correctly Best gaze (horizontal eye movement): Normal Visual field testing: No visual field loss Facial paresis (Show teeth/raise eyebrows/close eyes tight): Minor paralysis ( flattened nasolabial fold, asymmetry on smiling) Motor Function: Left Arm: Normal Motor Function: Right Arm: Drift Motor Function: Left Leg: Some effort against gravity (chronic) Motor Function: Right Leg: Some effort against gravity (chronic) Limb Ataxia: No ataxia Sensory(Use pinprick test arms,legs,trunk,face/side to side): Mild to moderate decrease in sensation (chronic, legs) Best language (Describe picture, name items, read sentences): No Aphasia Dysarthria (read several words): Normal articulation Extinction and Inattention: No abnormality - Total Score NIH Stroke Scale Score: 7 <Yang Pat - Last Filed: 06/08/19 23:57> tPA Exclusion Checklist 0-3hr - Time Elapsed Date last known well: 06/05/19 Time last known well: 12:00 Elaspsed time: 3 Day(s) and 11 Hour(s) and 57 Minutes - Thrombolytic Therapy Candidate Is the patient eligible for Thrombolytic Therapy?: No - Ineligibility reason(s) Reasons No tPA given: Outside of window - delayed arrival (3 days) <Yang Pat - Last Filed: 06/08/19 23:57> Past History - Past Medical History Anemia: No Asthma: No Cancer: No Cardiac Disorders: Yes (internal heart monitor) CVA: Yes (2002 2010) COPD: No CHF: No Dementia: No Diabetes: Yes GI Disorders: Yes (GERD) Disorders: Yes (frequency uses flomax) HTN: Yes Hypercholesterolemia: Yes Kidney Stones: Yes (BY HX) Liver Disease: Yes (hep a, b, c) Seizures: No Thyroid Disease: No - Surgical History Abdominal Surgery: No Appendectomy: No Cardiac Surgery: Yes (cardiac cath no stents) Cholecystectomy: (GALLSTONES) Lung Surgery: No Neurologic Surgery: No Orthopedic Surgery: No - Immunization History Immunization Up to Date: Yes - Psycho Social/Smoking Cessation Hx Smoking Status: No Smoking History: Unknown if ever smoked Years of Tobacco Use: 5 Have you smoked in the past 12 months: No Number of Cigarettes Smoked Daily: 3 If you are a former smoker, when did you quit?: quit 2009 Cigars Per Day: 0 Information on smoking cessation initiated: No Hx Alcohol Use: No Drug/Substance Use Hx: No Substance Use Type: None, Alcohol Hx Substance Use Treatment: No <Yang Pat - Last Filed: 06/08/19 23:57> <Rojelio Greco - Last Filed: 06/09/19 01:29> - Past Medical History Allergies/Adverse Reactions: Allergies Allergy/AdvReac Type Severity Reaction Status Date / Time No Known Allergies Allergy Verified 10/12/18 11:06 Home Medications: Ambulatory Orders Aspirin [ASA -] 81 mg PO DAILY #0 tab.chew 11/30/12 Lisinopril [Prinivil] 10 mg PO DAILY #0 tablet 11/30/12 Metoprolol Tartrate [Lopressor -] 50 mg PO BID #14 tablet 11/30/12 Emtricitabine/Tenofovir [Truvada -] 1 tab PO DAILY 09/04/17 Meclizine HCl 25 mg PO DAILY 02/27/17 Morphine Sulfate 15 mg PO BID 02/27/17 Omeprazole 20 mg PO DAILY 02/27/17 Oxycodone HCl 10 mg PO BID 02/27/17 Glipizide [Glipizide ER] 2.5 mg PO DAILY #30 tab.er.24 03/02/17 Levofloxacin [Levaquin] 500 mg PO DAILY #10 tablet 03/16/17 metroNIDAZOLE [Flagyl -] 500 mg PO Q8H #30 tablet 03/16/17 Amlodipine Besylate 10 mg PO DAILY 10/21/17 Glipizide 10 mg PO BID 10/21/17 Lisinopril 10 mg PO DAILY 10/21/17 Metoprolol Tartrate 100 mg PO BID 10/21/17 Morphine [Morphine Sulfate] 15 mg PO BID 10/21/17 Naloxegol Oxalate [Movantik] 25 mg PO DAILY 10/21/17 Sitagliptin Phosphate [Januvia] 100 mg PO DAILY 10/21/17 oxyCODONE HCL [Roxicodone -] 10 mg PO BID 10/21/17 Azithromycin [Zithromax -] 250 mg PO UTDICT #6 tab 07/16/18 Meclizine HCl 50 mg PO BID #14 tablet 07/16/18 Metoclopramide HCl [Reglan -] 10 mg PO TIDAC 30 Days #120 tablet 08/05/18 Pantoprazole Sodium [Protonix -] 40 mg PO BID 30 Days #60 tablet.ec 08/05/18 Polyethylene Glycol 3350 [Miralax 119 gm Btl -] 17 gm PO TID bottle 08/05/18 Review of Systems - Review of Systems Able to Perform ROS?: Yes Constitutional: Yes: Chills (chronic - over 2 yrs). No: Fever HEENTM: No: Eye Pain, Recent change in vision, Nose Pain, Nose Congestion, Throat Pain Respiratory: No: Cough, Shortness of Breath Cardiac (ROS): No: Chest Pain, Palpitations, Syncope ABD/GI: Yes: Constipated (chronic), Vomiting. No: Abdominal Distended, Diarrhea : Yes: Frequency (increased). No: Burning, Dysuria, Discharge Musculoskeletal: Yes: Back Pain (low). No: Neck Pain Integumentary: No: Bruising, Flushing, Lesions Neurological: Yes: Headache. No: Seizure, Tingling, Tremors Psychiatric: No: Anxiety, Depression Endocrine: No: Excessive Sweating, Flushing, Intolerance to Cold, Intolerance to Heat Hematologic/Lymphatic: No: Anemia, Blood Clots <BiYang - Last Filed: 06/08/19 23:57> *Physical Exam - Vital Signs Last Vital Signs Temp Pulse Resp BP Pulse Ox 97.9 F 89 20 149/85 99 06/08/19 21:19 06/08/19 21:19 06/08/19 21:19 06/08/19 21:19 06/08/19 21:19 - Physical Exam General Appearance: Yes: Nourished, Appropriately Dressed. No: Apparent Distress HEENT: positive: EOMI, KYM, Normal Voice, Hearing Grossly Normal. negative: Scleral Icterus (R), Scleral Icterus (L), Nasal Congestion, Rhinorrhea Respiratory/Chest: positive: Lungs Clear, Normal Breath Sounds. negative: Chest Tender, Respiratory Distress, Crackles, Rales, Rhonchi, Stridor, Wheezing Cardiovascular: positive: Regular Rhythm, Regular Rate, S1, S2, Systolic Murmur. negative: Edema Gastrointestinal/Abdominal: positive: Normal Bowel Sounds, Flat, Soft. 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, R pronator drift), Confused, Disoriented <Yang Pat - Last Filed: 06/08/19 23:57> - Vital Signs Last Vital Signs Temp Pulse Resp BP Pulse Ox 97.9 F 89 20 149/85 99 06/08/19 21:19 06/08/19 21:19 06/08/19 21:19 06/08/19 21:19 06/08/19 21:19 <Rojelio Greco - Last Filed: 06/09/19 01:29> ED Treatment Course - LABORATORY CBC & Chemistry Diagram: 06/08/19 22:25 06/08/19 22:25 - ADDITIONAL ORDERS Additional order review: Laboratory Results 06/08/19 21:20 POC Glucometer 364 06/08/19 21:20 POC Glucometer 364 <Yang Pat - Last Filed: 06/08/19 23:57> - LABORATORY CBC & Chemistry Diagram: 06/08/19 22:25 06/08/19 22:25 - ADDITIONAL ORDERS Additional order review: Laboratory Results 06/09/19 06/09/19 06/09/19 00:25 00:25 00:25 PT with INR INR PTT (Actin FS) VBG pH POC VBG pCO2 POC VBG pO2 VBG HCO3 VBG O2 Sat (Asad) VBG Base Excess Sodium Potassium Chloride Carbon Dioxide Anion Gap BUN Creatinine Est GFR (CKD-EPI)AfAm Est GFR (CKD-EPI)NonAf POC Glucometer Random Glucose Calcium Total Bilirubin AST ALT Alkaline Phosphatase Creatine Kinase Troponin I Total Protein Albumin Triglycerides 94 Cholesterol 148 Total LDL Cholesterol 73 HDL Cholesterol 53 Beta-Hydroxybutyrate Urine Color Urine Appearance Urine pH Ur Specific [place] Urine Protein Urine Glucose (UA) Urine Ketones Urine Blood Urine Nitrite Urine Bilirubin Urine Urobilinogen Ur Leukocyte Esterase 06/09/19 06/09/19 06/08/19 00:25 00:18 22:25 PT with INR 11.70 INR 0.99 PTT (Actin FS) 26.3 VBG pH POC VBG pCO2 POC VBG pO2 VBG HCO3 VBG O2 Sat (Asad) VBG Base Excess Sodium Potassium Chloride Carbon Dioxide Anion Gap BUN Creatinine Est GFR (CKD-EPI)AfAm Est GFR (CKD-EPI)NonAf POC Glucometer 351 Random Glucose Calcium Total Bilirubin AST ALT Alkaline Phosphatase Creatine Kinase Troponin I Total Protein Albumin Triglycerides Cholesterol Total LDL Cholesterol HDL Cholesterol Beta-Hydroxybutyrate Urine Color Yellow Urine Appearance Clear Urine pH 7.0 Ur Specific [place] 1.026 Urine Protein Trace Urine Glucose (UA) 3+ H Urine Ketones Negative Urine Blood Negative Urine Nitrite Negative Urine Bilirubin Negative Urine Urobilinogen 0.2 Ur Leukocyte Esterase Negative 06/08/19 06/08/19 06/08/19 22:25 22:25 22:25 PT with INR INR PTT (Actin FS) VBG pH 7.43 H POC VBG pCO2 43.9 POC VBG pO2 < 49 H VBG HCO3 28.7 VBG O2 Sat (Asad) 66.9 L VBG Base Excess 4.3 H Sodium 135 L Potassium 3.6 Chloride 98 Carbon Dioxide 29 Anion Gap 8 BUN 17.5 Creatinine 1.3 Est GFR (CKD-EPI)AfAm 64.07 Est GFR (CKD-EPI)NonAf 55.28 POC Glucometer Random Glucose 369 H Calcium 9.0 Total Bilirubin 0.3 AST 20 ALT 27 Alkaline Phosphatase 62 Creatine Kinase 53 Troponin I < 0.02 Total Protein 7.4 Albumin 3.4 Triglycerides Cholesterol Total LDL Cholesterol HDL Cholesterol Beta-Hydroxybutyrate 2.0 Urine Color Urine Appearance Urine pH Ur Specific [place] Urine Protein Urine Glucose (UA) Urine Ketones Urine Blood Urine Nitrite Urine Bilirubin Urine Urobilinogen Ur Leukocyte Esterase 06/08/19 21:20 PT with INR INR PTT (Actin FS) VBG pH POC VBG pCO2 POC VBG pO2 VBG HCO3 VBG O2 Sat (Asad) VBG Base Excess Sodium Potassium Chloride Carbon Dioxide Anion Gap BUN Creatinine Est GFR (CKD-EPI)AfAm Est GFR (CKD-EPI)NonAf POC Glucometer 364 Random Glucose Calcium Total Bilirubin AST ALT Alkaline Phosphatase Creatine Kinase Troponin I Total Protein Albumin Triglycerides Cholesterol Total LDL Cholesterol HDL Cholesterol Beta-Hydroxybutyrate Urine Color Urine Appearance Urine pH Ur Specific [place] Urine Protein Urine Glucose (UA) Urine Ketones Urine Blood Urine Nitrite Urine Bilirubin Urine Urobilinogen Ur Leukocyte Esterase 06/09/19 06/08/19 06/08/19 00:18 22:25 21:20 RBC 4.13 MCV 88.7 MCHC 32.7 RDW 14.1 MPV 7.6 Neutrophils % 56.1 Lymphocytes % 31.8 Monocytes % 10.0 Eosinophils % 1.7 Basophils % 0.4 POC Glucometer 351 364 - RADIOLOGY Radiology Studies Ordered: Category Date Time Status CHEST - PA [RAD] Stat Radiology 06/09/19 00:16 Ordered - Medications Given in the ED: ED Medications Discontinued Medications Generic Name Dose Route Start Last Admin Trade Name Freq PRN Reason Stop Dose Admin Acetaminophen 1,000 mg 06/08/19 21:57 06/08/19 22:28 Ofirmev Injection - IVPB 06/08/19 21:58 1,000 mg ONCE ONE Administration Insulin Human Regular 6 units 06/08/19 23:54 06/09/19 01:17 Novolin R Vial *For Ivpush Or Iv Drip Only* IVPUSH 06/08/19 23:55 6 units ONCE ONE Administration Sodium Chloride 1,000 ml 06/08/19 21:56 06/08/19 22:29 Normal Saline - IV 06/08/19 21:57 1,000 ml ONCE ONE Administration Sodium Chloride 1,000 ml 06/08/19 23:45 06/09/19 01:17 Normal Saline - IV 06/08/19 23:46 1,000 ml ONCE ONE Administration <Rojelio Greco - Last Filed: 06/09/19 01:29> Medical Decision Making - Medical Decision Making 06/08/19 22:02 CBC CMP b-hydroxybutyrate VBG UA Ucx trop Head CT EKG tylenol 2L NS, 6u insulin --- 69yM w PMHx IDDM, HTN, HLD, CVA, hepatitis, diabetic neuropathy, chronic low back pain, GERD, constipation presenting w dizziness, headache, and hyperglycemia. Concern for CVA (R nasolabial flattening, R pronator drift, RUE weakness, known BLE reduced sensation and motor strength - NIHSS score 7) . Did not give tPA d/t last known well >3hrs (3d ago). Low concern for DKA (no acidosis or ketones) vs UTI (clean UA) vs ACS. Given tylenol for headache, 2L NS , 6u insulin for hyperglcemia. Plan to admit to stroke Dr Swan for CVA and hyperglycemia - pending head CT, EKG, coags, T&S, lipid labs - consult commissions specialist neuro Dr Sena regarding CVA after CT read Signed out to night team <Yang Pat - Last Filed: 06/08/19 23:57> Discharge - Discharge Information Problems reviewed: Yes <Yang Pat - Last Filed: 06/08/19 23:57> - Discharge Information Problems reviewed: Yes - Admission Yes <Rojelio Greco - Last Filed: 06/09/19 01:29> - Discharge Information Clinical Impression/Diagnosis: Dehydration, Dizziness, TIA (transient ischemic attack), Hyperglycemia Hyperglycemia due to type 2 diabetes mellitus Qualifiers: Diabetes mellitus 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
[2019-06-08] MEDS ORDERED: ACETAMINOPHEN INJECTION 100 ML IVPB ONE (22:13)
[2019-06-08 22:35] LABS: BASO % 0.4 % (0-2.0); EOS % 1.7 % (0-4.5); HEMATOCRIT 36.6 % (35.4-49); LYMPH % 31.8 % (8-40); MCHC 32.7 g/dl (32.0-35.9); MEAN CELL VOLUME 88.7 fl (80-96); MEAN PLT VOLUME 7.6 fl (7.5-11.1); NEUT % 56.1 % (42.8-82.8); PLATELET COUNT 196 K/MM3 (134-434); RBC 4.13 M/mm3 (4.00-5.60); RDW 14.1 % (11.9-15.9); URINE APPEARANCE CLEAR; URINE BILIRUBIN NEGATIVE (NEGATIVE); URINE COLOR YELLOW; URINE GLUCOSE (UA) 3+ (NEGATIVE); URINE KETONE NEGATIVE (NEGATIVE); URINE LEUK ESTERASE NEGATIVE (NEGATIVE); URINE NITRITE NEGATIVE (NEGATIVE); URINE PROTEIN TRACE (NEGATIVE); URINE UROBILINOGEN 0.2 mg/dL (0.2-1.0); VENOUS PC02 43.9 mmHg (38-52); VENOUS PH 7.43 (7.31-7.41); VENOUS PO2 < 49 mmHg (28-48); WHITE BLOOD COUNT 5.5 K/mm3 (4.0-10.0)
[2019-06-08 23:10] LABS: ALBUMIN 3.4 g/dl (3.4-5.0); ALK PHOS 62 U/L (45-117); ANION GAP 8 MMOL/L (8-16); BILIRUBIN,TOTAL 0.3 mg/dL (0.2-1); BLOOD UREA NITROGEN 17.5 mg/dL (7-18); CHLORIDE 98 mmol/L (98-107); CO2 29 mmol/L (21-32); CREATININE 1.3 mg/dL (0.55-1.3); GLUCOSE,RANDOM 369 mg/dL (74-106); POTASSIUM 3.6 mmol/L (3.5-5.1); SGOT/AST 20 U/L (15-37); SGPT/ALT 27 U/L (13-61); SODIUM 135 mmol/L (136-145); TOT PROT 7.4 g/dl (6.4-8.2)
[2019-06-08] MEDS ORDERED: INSULIN REGULAR HUMAN 100 UNITS/ML *VIAL IVPUSH ONE (23:54)
--- NOTE | 2019-06-08 23:54 | PDOC ---
*Physical Exam - Vital Signs Last Vital Signs Temp Pulse Resp BP Pulse Ox 97.9 F 89 20 149/85 99 06/08/19 21:19 06/08/19 21:19 06/08/19 21:19 06/08/19 21:19 06/08/19 21:19 ED Treatment Course - LABORATORY CBC & Chemistry Diagram: 06/08/19 22:25 06/08/19 22:25 - ADDITIONAL ORDERS Additional order review: Laboratory Results 06/08/19 06/08/19 06/08/19 22:25 22:25 22:25 VBG pH POC VBG pCO2 POC VBG pO2 VBG HCO3 VBG O2 Sat (Asad) VBG Base Excess Sodium 135 L Potassium 3.6 Chloride 98 Carbon Dioxide 29 Anion Gap 8 BUN 17.5 Creatinine 1.3 Est GFR (CKD-EPI)AfAm 64.07 Est GFR (CKD-EPI)NonAf 55.28 POC Glucometer Random Glucose 369 H Calcium 9.0 Total Bilirubin 0.3 AST 20 ALT 27 Alkaline Phosphatase 62 Creatine Kinase 53 Troponin I < 0.02 Total Protein 7.4 Albumin 3.4 Beta-Hydroxybutyrate 2.0 Urine Color Yellow Urine Appearance Clear Urine pH 7.0 Ur Specific [place] 1.026 Urine Protein Trace Urine Glucose (UA) 3+ H Urine Ketones Negative Urine Blood Negative Urine Nitrite Negative Urine Bilirubin Negative Urine Urobilinogen 0.2 Ur Leukocyte Esterase Negative 06/08/19 06/08/19 22:25 21:20 VBG pH 7.43 H POC VBG pCO2 43.9 POC VBG pO2 < 49 H VBG HCO3 28.7 VBG O2 Sat (Asad) 66.9 L VBG Base Excess 4.3 H Sodium Potassium Chloride Carbon Dioxide Anion Gap BUN Creatinine Est GFR (CKD-EPI)AfAm Est GFR (CKD-EPI)NonAf POC Glucometer 364 Random Glucose Calcium Total Bilirubin AST ALT Alkaline Phosphatase Creatine Kinase Troponin I Total Protein Albumin Beta-Hydroxybutyrate Urine Color Urine Appearance Urine pH Ur Specific [place] Urine Protein Urine Glucose (UA) Urine Ketones Urine Blood Urine Nitrite Urine Bilirubin Urine Urobilinogen Ur Leukocyte Esterase 06/08/19 06/08/19 22:25 21:20 RBC 4.13 MCV 88.7 MCHC 32.7 RDW 14.1 MPV 7.6 Neutrophils % 56.1 Lymphocytes % 31.8 Monocytes % 10.0 Eosinophils % 1.7 Basophils % 0.4 POC Glucometer 364 - Medications Given in the ED: ED Medications Discontinued Medications Generic Name Dose Route Start Last Admin Trade Name Charlie PRN Reason Stop Dose Admin Acetaminophen 1,000 mg 06/08/19 21:57 06/08/19 22:28 Ofirmev Injection - IVPB 06/08/19 21:58 1,000 mg ONCE ONE Administration Sodium Chloride 1,000 ml 06/08/19 21:56 06/08/19 22:29 Normal Saline - IV 06/08/19 21:57 1,000 ml ONCE ONE Administration Medical Decision Making - Medical Decision Making 06/08/19 23:48 Pt received on sign out from Dr. Pat. 77 y/o male presenting with dizziness and hyperglycemia of aorund 530 since this afternoon. Work up does not show signs of DKA. ED course includes tylenol, 2L fluids, and 6 units of insulin. Pt was started on insulin by PCP but not able to afford medication (previously on glipizide and metformin). Head CT pending. 06/09/19 00:21 CT head shows no acute territorial infarct, hemorrhage, or space-occupying mass. EKG shows NSR, 83 bpm, no ST elevation, QTc 446, no axis deviation. 06/09/19 01:02 D/w Dr. Swan who accepts the patient for admission. 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
[2019-06-09] MEDS ORDERED: SODIUM CHLORIDE 1,000 ML IV STA (00:28)
[2019-06-09 01:05] LABS: INR 0.99 (0.83-1.09); PROTHROMBIN TIME (PATIENT) 11.7 SEC (9.7-13.0)
[2019-06-09 01:08] LABS: ACTIVATED PTT 26.3 SECONDS (25.2-36.5)
[2019-06-09] MEDS ORDERED: SODIUM CHLORIDE 1,000 ML IV SCH ×3 (01:15→10:55)
[2019-06-09 01:17] LABS: CHOLESTEROL 148 mg/dL (50-200); HDL CHOLESTEROL 53 mg/dL (40-60)
--- NOTE | 2019-06-09 01:28 | PDOC ---
Documentation entered by Val Smith SCRIBE, acting as scribe for Rojelio Greco MD. Rojelio Greco MD: This documentation has been prepared by the Sarah crabtree Xhesika, SCRIBE, under my direction and personally reviewed by me in its entirety. I confirm that the documentation accurately reflects all work, treatment, procedures, and medical decision making performed by me. Attending Attestation - Resident Resident Name: Yang Pat - ED Attending Attestation I have performed the following: I have examined & evaluated the patient, The case was reviewed & discussed with the resident, I agree w/resident's findings & plan, Exceptions are as noted - HPI HPI: 06/08/19 22:24 The patient is a 69 year old male with a significant PMH of HIV (undetectable viral load), HTN, HLD, IDDM and peripheral neuropathy who presents to the emergency department for hyperglycemia, dizziness, and headache. At 5pm pt stood up from bed and felt sudden onset dizziness, described as room spinning, associated with a headache, lasting 5 minutes before resolving. Pt saw his PCP 3 days ago, was started on insulin, however, pt was unable to afford prescription due to insurance plan. Per EMS, en route to the ED patients sugar glucose was 500. The patient denies chest pain, shortness of breath. Denies fever, chills, cough , nausea, vomiting, diarrhea and constipation. Denies dysuria, frequency, urgency and hematuria. Allergies: NKDA PCP: Dr. Swan - Physicial Exam PE: 06/09/19 01:15 Patient seen and evaluated immediately upon arrival. This PE is being recorded first admission Patient is awake and alert, well-nourished, ill-appearing, in no distress normocephalic and atraumatic perrla, eomi, conj-pink + r. facial assymetry with flatening of r. nasolabial fold no caroid bruits cta rrr cn ii-xii groslly intact; motor: 4 5 right upper extremity, 5/5 left upper extremity, 3 of 5 lower extremities bilaterally (Handgrip is noted to be weaker on the right ); Pronation drift is noted on the right;Gait-deferred. - Medical Decision Making 06/09/19 01:23 Patient 69-year-old male with history of hypertension, hyperlipidemia, HIV ( viral load undetectable) and diabetes presents with lightheadedness, right facial asymmetry, right upper extremity weakness right upper extremity pronation drift of unknown duration with polyuria and polydipsia,since patient was unable to obtain prescribed insulin. Patient was not a TPA candidate given unknown onset of symptoms. CT of head showed no evidence of acute intracranial pathology. IV fluids were administered and after administration of approximately 1500 mL of normal saline, patient's symptoms have completely resolved. No focal neuro deficits were appreciated on repeat evaluation.No evidence of anion gap was noted and pH indicated no evidence of acidosis. Patient received subcutaneous insulin. EKG showed no evidence of acute ischemia no significant electrolyte abnormalities were identified. Patient will be admitted for further fluid hydration and evaluation of possible TIA. NIH Stroke Scale - Last Known Well Date/Time & Onset Date Last Known Well: 06/05/19 (exact unknown) Time Last Known Well: 11:40 (exact unknown) - Initial Evaluation Level of consciousness: Alert Ask patient the month and their age: Answers both correctly Ask patient to open & close eyes; make fist and let go: Obeys both correctly Best gaze (horizontal eye movement): Normal Visual field testing: No visual field loss Facial paresis (Show teeth/raise eyebrows/close eyes tight): Minor paralysis ( flattened nasolabial fold, asymmetry on smiling) Motor Function: Left Arm: Normal Motor Function: Right Arm: Drift Motor Function: Left Leg: Drift Motor Function: Right Leg: Drift Limb Ataxia: No ataxia Sensory(Use pinprick test arms,legs,trunk,face/side to side): Normal Best language (Describe picture, name items, read sentences): No Aphasia Dysarthria (read several words): Normal articulation Extinction and Inattention: No abnormality - Total Score NIH Stroke Scale Score: 4
[2019-06-09] MEDS ORDERED: ASPIRIN 325 MG ENTERIC COATED TABLET (FP) PO ONE (01:30)
[2019-06-09] MEDS ORDERED: ASPIRIN 325 MG ENTERIC COATED TABLET (FP) ONE (01:34)
[2019-06-09] MEDS ORDERED: METOCLOPRAMIDE HCL 10 MG TABLET (FP) PO ONE (05:58)
[2019-06-09] MEDS ORDERED: sitaGLIPtin PHOSPHATE 50 MG TABLET ONE (05:58)
[2019-06-09] MEDS: METOCLOPRAMIDE HCL 10 MG TABLET (FP) PO SCH ×3 (06:32→16:58)
[2019-06-09] MEDS: INSULIN SLIDING SCALE (NOVOLOG) 1 VIAL SQ SCH ×4 (06:32→22:04)
[2019-06-09] MEDS: POLYETHYLENE GLYCOL 3350 119 GM BTL PO SCH ×3 (08:30→22:10)
[2019-06-09] MEDS: INSULIN (LEVEMIR) 100 UNITS/ML UNITS SQ SCH ×2 (08:30→22:03)
[2019-06-09] MEDS: glipiZIDE 10 MG TABLET (FP) PO SCH ×2 (08:30→16:58)
[2019-06-09] MEDS ORDERED: glipiZIDE 5 MG TABLET (FP) ONE ×2 (08:42→16:41)
[2019-06-09] MEDS ORDERED: PATIENT'S OWN MEDICATION (NON-FORMULARY) (Oxycodone Hcl [Oxycodone Hcl] 10 MG) PO SCH (10:00)
[2019-06-09] MEDS ORDERED: PATIENT'S OWN MEDICATION (NON-FORMULARY) (Naloxegol Oxalate [Movantik] 25 MG) PO SCH (10:00)
--- NOTE | 2019-06-09 10:11 | EKG ---
Test Reason : Blood Pressure : / mmHG Vent. Rate : 083 BPM Atrial Rate : 083 BPM P-R Int : 190 ms QRS Dur : 080 ms QT Int : 380 ms P-R-T Axes : 050 -12 018 degrees QTc Int : 446 ms NORMAL SINUS RHYTHM INFERIOR INFARCT , AGE UNDETERMINED POSSIBLE ANTERIOR INFARCT , AGE UNDETERMINED ABNORMAL ECG WHEN COMPARED WITH ECG OF 12-OCT-2018 15:17, BORDERLINE CRITERIA FOR ANTERIOR INFARCT ARE NOW PRESENT NO SIGNIFICANT CHANGE WAS FOUND Confirmed by SHREYA MAHAN MD ([id number]) on 06/09/2019 10:11:43 AM Referred By: Confirmed By:SHREYA MAHAN MD
--- NOTE | 2019-06-09 10:47 | HP ---
Admitting History and Physical - Admission History of Present Illness: 06/08/19 22:24 The patient is a 69 year old male with a significant PMH of HIV (undetectable viral load), HTN, HLD, IDDM and peripheral neuropathy who presents to the emergency department for hyperglycemia, dizziness, and headache. At 5pm pt stood up from bed and felt sudden onset dizziness, described as room spinning, associated with a headache, lasting 5 minutes before resolving. Pt saw his PCP 3 days ago, was started on insulin, however, pt was unable to afford prescription due to insurance plan. Per EMS, en route to the ED patients sugar glucose was 500. The patient denies chest pain, shortness of breath. Denies fever, chills, cough , nausea, vomiting, diarrhea and constipation. Denies dysuria, frequency, urgency and hematuria. Allergies: NKDA PCP: Dr. 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: CVA (CVA x 2 '03 and ), Peripheral Neuropathy, Syncope Cardiovascular: Yes: AFIB (has [facility] internal monitor), CAD (cardiac cath 2011, positive EST for anterior wall ), HTN, Hyperlipdemia, Pulmonary Hypertension, Other ( nonobstructive CAD on angiogram, 07/09 stress MIBI mod ant-lat wall ischemia) Gastrointestinal: Yes: Constipation, Diverticulosis, Esophageal Varices (by EGD - Dr Moreno), GERD, Hemorrhoids Hepatobiliary: Yes: Hepatitis C (claims to have been cured), Other (fatty liver) Renal/: Yes: Renal Calculi (ESWL x several occasions) Heme/Onc: Yes: Anemia (had bone marrow remotely) Infectious Disease: Yes: HIV (sexually acquired homosexually and heterosexually , No IVDA) Musculoskeletal: Yes: Chronic low back pain (L4-L5 disc disease) Endocrine: Yes: Diabetes Mellitus - Past Surgical History Past Surgical History: Yes: Colonoscopy, Upper Endoscopy - Smoking History Smoking history: Unknown if ever smoked Have you smoked in the past 12 months: No Aproximately how many cigarettes per day: 3 If you are a former smoker, when did you quit?: quit 2008 - Alcohol/Substance Use Hx Alcohol Use: No History of Substance Use: reports: None - Social History ADL: Independent Occupation: retired [facility] [employer] History of Recent Travel: No Home Medications - Allergies Allergies/Adverse Reactions: Allergies Allergy/AdvReac Type Severity Reaction Status Date / Time No Known Allergies Allergy Verified 10/12/18 11:06 - Home Medications Home Medications: Ambulatory Orders Aspirin [ASA -] 81 mg PO DAILY #0 tab.chew 11/30/12 Lisinopril [Prinivil] 10 mg PO DAILY #0 tablet 11/30/12 Metoprolol Tartrate [Lopressor -] 50 mg PO BID #14 tablet 11/30/12 Emtricitabine/Tenofovir [Truvada -] 1 tab PO DAILY 02/27/17 Meclizine HCl 25 mg PO DAILY 02/27/17 Morphine Sulfate 15 mg PO BID 02/27/17 Omeprazole 20 mg PO DAILY 02/27/17 Oxycodone HCl 10 mg PO BID 02/27/17 Glipizide [Glipizide ER] 2.5 mg PO DAILY #30 tab.er.24 03/02/17 Levofloxacin [Levaquin] 500 mg PO DAILY #10 tablet 03/16/17 metroNIDAZOLE [Flagyl -] 500 mg PO Q8H #30 tablet 03/16/17 Amlodipine Besylate 10 mg PO DAILY 10/21/17 Glipizide 10 mg PO BID 10/21/17 Lisinopril 10 mg PO DAILY 10/21/17 Metoprolol Tartrate 100 mg PO BID 10/21/17 Morphine [Morphine Sulfate] 15 mg PO BID 10/21/17 Naloxegol Oxalate [Movantik] 25 mg PO DAILY 10/21/17 Sitagliptin Phosphate [Januvia] 100 mg PO DAILY 10/21/17 oxyCODONE HCL [Roxicodone -] 10 mg PO BID 10/21/17 Azithromycin [Zithromax -] 250 mg PO UTDICT #6 tab 07/16/18 Meclizine HCl 50 mg PO BID #14 tablet 07/16/18 Metoclopramide HCl [Reglan -] 10 mg PO TIDAC 30 Days #120 tablet 08/05/18 Pantoprazole Sodium [Protonix -] 40 mg PO BID 30 Days #60 tablet.ec 08/05/18 Polyethylene Glycol 3350 [Miralax 119 gm Btl -] 17 gm PO TID bottle 08/05/18 Review of Systems - Review of Systems Constitutional: reports: No Symptoms Eyes: reports: No Symptoms HENT: reports: No Symptoms Neck: reports: No Symptoms Cardiovascular: reports: No Symptoms Respiratory: reports: No Symptoms Gastrointestinal: reports: No Symptoms Genitourinary: reports: No Symptoms Breasts: reports: No Symptoms Reported Musculoskeletal: reports: Muscle Cramps, Muscle Weakness Integumentary: reports: No Symptoms Neurological: reports: Incoordination, Weakness, Other (reports felt lethargic which prompted ER visit) Endocrine: reports: Increased Thirst Hematology/Lymphatic: reports: No Symptoms Psychiatric: reports: No Symptoms Physical Examination Vital Signs: Vital Signs Temperature 98.7 F 06/09/19 08:30 Pulse Rate 87 06/09/19 08:30 Respiratory Rate 18 06/09/19 08:30 Blood Pressure 140/88 06/09/19 08:30 O2 Sat by Pulse Oximetry (%) 98 06/09/19 09:33 Constitutional: Yes: Well Nourished, No Distress, Calm Eyes: Yes: Conjunctiva Clear, EOM Intact HENT: Yes: Atraumatic, Normocephalic Neck: Yes: Supple, Trachea Midline Cardiovascular: Yes: Regular Rate and Rhythm Respiratory: Yes: CTA Bilaterally Gastrointestinal: Yes: Normal Bowel Sounds, Soft ...Rectal Exam: Yes: Deferred Renal/: Yes: WNL Breast(s): Yes: WNL Musculoskeletal: Yes: WNL Extremities: Yes: WNL Edema: No Peripheral Pulses WNL: Yes Integumentary: Yes: WNL Neurological: Yes: Alert, Oriented. 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
[2019-06-09] MEDS: LISINOPRIL 10 MG TABLET (FP) PO SCH (11:02)
[2019-06-09] MEDS: ASPIRIN 81 MG CHEWABLE TABLETS PO SCH (11:02)
[2019-06-09] MEDS: AZITHROMYCIN 250 MG TABLET PO SCH (11:02)
[2019-06-09] MEDS: amLODIPine BESYLATE 10 MG TABLET (FP) PO SCH (11:02)
[2019-06-09] MEDS: MECLIZINE HCL 25 MG TABLET (FP) PO SCH (11:02)
[2019-06-09] MEDS: EMTRICITABINE 200MG/TENOFOVIR 300MG PO SCH (11:03)
[2019-06-09] MEDS: METOPROLOL TARTRATE 50 MG TABLET (FP) PO SCH ×2 (11:03→22:02)
[2019-06-09] MEDS: PANTOPRAZOLE 40 MG TABLET (FP) PO SCH ×2 (11:03→22:02)
[2019-06-09] MEDS ORDERED: INSULIN (NOVOLOG) ASPART 100 UNITS/ML 10ML VIAL ONE (11:20)
[2019-06-09] MEDS: morphine SO4 SUSTAINED ACTING 15 MG TABLET.SA PO SCH ×2 (11:22→22:02)
--- NOTE | 2019-06-09 11:25 | CONSULT ---
Consult - text type - Consultation Consultation Note: Neurology Admitting History and Physical - Admission History of Present Illness: The patient is a 69 year old male with a significant PMH of HIV (undetectable viral load), HTN, HLD, IDDM and peripheral neuropathy who presented to the emergency department for hyperglycemia, dizziness, and headache. At 5pm prior to admission, pt stood up from bed and felt sudden onset dizziness, described as room spinning, associated with a headache, lasting 5 minutes before resolving. Pt saw his PCP 3 days ago, was started on insulin, however, pt was unable to afford prescription due to insurance plan. Per EMS, en route to the ED patients sugar glucose was 500. The patient denies chest pain, shortness of breath. Denies fever, chills, cough, nausea, vomiting, diarrhea and constipation. Denies dysuria, frequency, urgency and hematuria. Head CT completed, moderate atrophy, no acute pathology. LDL 73, pt on aspirin 81mg daily. patient seen at bedside with nurse and reports symptoms have improved in terms of dizziness andimbalance. Explained to him that likely due to hyperglycemia. He has no focal deficits and therefore will not pursue MRI at this time. Did complain of peripheral neuropathy and I discussed with him initiating neuropathic medication as he describes burning sensation in his distal lower extremities. We'll start gabapentin 300 mg twice a day and the patient was in agreement. 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 internal monitor), CAD (cardiac cath 2011, positive EST for anterior wall ), HTN, Hyperlipdemia, Pulmonary Hypertension, Other ( nonobstructive CAD on angiogram, 07/09 stress MIBI mod ant-lat wall ischemia) Gastrointestinal: Yes: Constipation, Diverticulosis, Esophageal Varices (by EGD - Dr Moreno), GERD, Hemorrhoids Hepatobiliary: Yes: Hepatitis C (claims to have been cured), Other (fatty liver) Renal/: Yes: Renal Calculi (ESWL x several occasions) Heme/Onc: Yes: Anemia (had bone marrow remotely) Infectious Disease: Yes: HIV (sexually acquired homosexually and heterosexually , No IVDA) Musculoskeletal: Yes: Chronic low back pain (L4-L5 disc disease) Endocrine: Yes: Diabetes Mellitus - Past Surgical History Past Surgical History: Yes: Colonoscopy, Upper Endoscopy - Smoking History Smoking history: Unknown if ever smoked Have you smoked in the past 12 months: No Aproximately how many cigarettes per day: 3 If you are a former smoker, when did you quit?: quit 2008 - Alcohol/Substance Use Hx Alcohol Use: No History of Substance Use: reports: None - Social History ADL: Independent 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 History of Recent Travel: No Home Medications - Allergies Allergies/Adverse Reactions: Allergies Allergy/AdvReac Type Severity Reaction Status Date / Time No Known Allergies Allergy Verified 10/12/18 11:06 Ambulatory Orders Aspirin [ASA -] 81 mg PO DAILY #0 tab.chew 11/30/12 Lisinopril [Prinivil] 10 mg PO DAILY #0 tablet 11/30/12 Metoprolol Tartrate [Lopressor -] 50 mg PO BID #14 tablet 11/30/12 Emtricitabine/Tenofovir [Truvada -] 1 tab PO DAILY 02/27/17 Meclizine HCl 25 mg PO DAILY 02/27/17 Morphine Sulfate 15 mg PO BID 02/27/17 Omeprazole 20 mg PO DAILY 02/27/17 Oxycodone HCl 10 mg PO BID 02/27/17 Glipizide [Glipizide ER] 2.5 mg PO DAILY #30 tab.er.24 03/02/17 Levofloxacin [Levaquin] 500 mg PO DAILY #10 tablet 03/16/17 metroNIDAZOLE [Flagyl -] 500 mg PO Q8H #30 tablet 03/16/17 Amlodipine Besylate 10 mg PO DAILY 10/21/17 Glipizide 10 mg PO BID 10/21/17 Lisinopril 10 mg PO DAILY 10/21/17 Metoprolol Tartrate 100 mg PO BID 10/21/17 Morphine [Morphine Sulfate] 15 mg PO BID 10/21/17 Naloxegol Oxalate [Movantik] 25 mg PO DAILY 10/21/17 Sitagliptin Phosphate [Januvia] 100 mg PO DAILY 10/21/17 oxyCODONE HCL [Roxicodone -] 10 mg PO BID 10/21/17 Azithromycin [Zithromax -] 250 mg PO UTDICT #6 tab 07/16/18 Meclizine HCl 50 mg PO BID #14 tablet 07/16/18 Metoclopramide HCl [Reglan -] 10 mg PO TIDAC 30 Days #120 tablet 08/05/18 Pantoprazole Sodium [Protonix -] 40 mg PO BID 30 Days #60 tablet.ec 08/05/18 Polyethylene Glycol 3350 [Miralax 119 gm Btl -] 17 gm PO TID bottle 08/05/18 Active Medications Amlodipine Besylate (Norvasc -) 10 mg PO DAILY [facility] Last Admin: 06/09/19 11:02 Dose: 10 mg Aspirin (Asa -) 81 mg PO DAILY [facility] Last Admin: 06/09/19 11:02 Dose: 81 mg Azithromycin (Zithromax -) 250 mg PO DAILY [facility] Stop: 06/13/19 23:59 Last Admin: 06/09/19 11:02 Dose: 250 mg Emtricitabine/Tenofovir (Truvada) 1 tab PO DAILY [facility] Last Admin: 06/09/19 11:03 Dose: 1 tab Glipizide (Glucotrol -) 10 mg PO BIDAC [facility] Last Admin: 06/09/19 08:30 Dose: 10 mg Sodium Chloride (Normal Saline -) 1,000 mls @ 200 mls/hr IV ASDIR [facility] Stop: 06/10/19 01:00 Last Admin: 06/09/19 11:04 Dose: 200 mls/hr Insulin Aspart (Novolog Vial Sliding Scale -) 1 vial SQ ACHS [facility]; Protocol Last Admin: 06/09/19 06:32 Dose: Not Given Insulin Detemir (Levemir Vial) 10 units SQ BID@0700,2200 [facility] Last Admin: 06/09/19 08:30 Dose: 10 units Lisinopril (Prinivil) 10 mg PO DAILY [facility] Last Admin: 06/09/19 11:02 Dose: 10 mg Meclizine HCl (Antivert -) 25 mg PO DAILY [facility] Last Admin: 06/09/19 11:02 Dose: 25 mg Metoclopramide HCl (Reglan -) 10 mg PO TIDAC [facility] Last Admin: 06/09/19 11:03 Dose: 10 mg Metoprolol Tartrate (Lopressor -) 50 mg PO BID [facility] Last Admin: 06/09/19 11:03 Dose: 50 mg Morphine Sulfate (Ms Contin -) 15 mg PO BID [facility] Non-Formulary Medication (Naloxegol Oxalate [Movantik]) 25 mg PO DAILY [facility] Non-Formulary Medication (Oxycodone Hcl [Oxycodone Hcl]) 10 mg PO BID [facility] Pantoprazole Sodium (Protonix -) 40 mg PO BID [facility] Last Admin: 06/09/19 11:03 Dose: 40 mg Polyethylene Glycol (Miralax (For Daily Use) -) 17 gm PO TID [facility] Last Admin: 06/09/19 08:30 Dose: 17 gm Senna (Senna -) 2 tab PO [facility] Sitagliptin Phosphate (Januvia -) 100 mg PO DAILY@0700 [facility] Last Admin: 06/09/19 06:31 Dose: 100 mg Review of Systems - Review of Systems Constitutional: reports: No Symptoms Eyes: reports: No Symptoms HENT: reports: No Symptoms Neck: reports: No Symptoms Cardiovascular: reports: No Symptoms Respiratory: reports: No Symptoms Gastrointestinal: reports: No Symptoms Genitourinary: reports: No Symptoms Breasts: reports: No Symptoms Reported Musculoskeletal: reports: Muscle Cramps, Muscle Weakness Integumentary: reports: No Symptoms Neurological: reports: Incoordination, Weakness, Other (reports felt lethargic which prompted ER visit) Endocrine: reports: Increased Thirst Hematology/Lymphatic: reports: No Symptoms Psychiatric: reports: No Symptoms Physical Examination Vital Signs: Vital Signs Period Temp Pulse Resp BP Sys/Johnson Pulse Ox Last 24 Hr 97.9 F-98.9 F 87-89 18-20 140-149/85-88 98-99 Constitutional: Yes: Well Nourished, No Distress, Calm Eyes: Yes: Conjunctiva Clear, EOM Intact HENT: Yes: Atraumatic, Normocephalic Neck: Yes: Supple, Trachea Midline Cardiovascular: Yes: Regular Rate and Rhythm Respiratory: Yes: CTA Bilaterally Gastrointestinal: Yes: Normal Bowel Sounds, Soft ...Rectal Exam: Yes: Deferred Renal/: Yes: WNL Breast(s): Yes: WNL Musculoskeletal: Yes: WNL Extremities: Yes: WNL Edema: No Peripheral Pulses WNL: Yes Integumentary: Yes: WNL Neurological: aawake, alert, cranial nerves intact, and symmetric strength bilaterally in upper and lower extremities, sensory slightly diminished to pinprick in distal lower extremities, finger-nose intact Psychiatric: Yes: WNL, Alert, Oriented Labs: CBCD WBC 5.5 K/mm3 (4.0-10.0) 06/08/19 22:25 RBC 4.13 M/mm3 (4.00-5.60) 06/08/19 22:25 Hgb 12.0 GM/dL (11.7-16.9) 06/08/19 22:25 Hct 36.6 % (35.4-49) 06/08/19 22:25 MCV 88.7 fl (80-96) 06/08/19 22:25 MCHC 32.7 g/dl (32.0-35.9) 06/08/19 22:25 RDW 14.1 % (11.9-15.9) 06/08/19 22:25 Plt Count 196 K/MM3 (134-434) 06/08/19 22:25 MPV 7.6 fl (7.5-11.1) 06/08/19 22:25 CMP Sodium 135 mmol/L (136-145) L 06/08/19 22:25 Potassium 3.6 mmol/L (3.5-5.1) 06/08/19 22:25 Chloride 98 mmol/L (98-107) 06/08/19 22:25 Carbon Dioxide 29 mmol/L (21-32) 06/08/19 22:25 Anion Gap 8 MMOL/L (8-16) 06/08/19 22:25 BUN 17.5 mg/dL (7-18) 06/08/19 22:25 Creatinine 1.3 mg/dL (0.55-1.3) 06/08/19 22:25 Random Glucose 369 mg/dL (74-106) H 06/08/19 22:25 Calcium 9.0 mg/dL (8.5-10.1) 06/08/19 22:25 Total Bilirubin 0.3 mg/dL (0.2-1) 06/08/19 22:25 AST 20 U/L (15-37) 06/08/19 22:25 ALT 27 U/L (13-61) 06/08/19 22:25 Alkaline Phosphatase 62 U/L (45-117) 06/08/19 22:25 Total Protein 7.4 g/dl (6.4-8.2) 06/08/19 22:25 Albumin 3.4 g/dl (3.4-5.0) 06/08/19 22:25 CARDIAC ENZYMES Creatine Kinase 53 U/L (26-308) 06/08/19 22:25 Troponin I < 0.02 ng/ml (0.00-0.05) 06/08/19 22:25 PLAN/ASSESSMENT The patient is a 69 year old male with a significant PMH of HIV (undetectable viral load), HTN, HLD, IDDM and peripheral neuropathy who presented to the emergency department for hyperglycemia, dizziness, and headache. At 5pm prior to admission, pt stood up from bed and felt sudden onset dizziness, described as room spinning, associated with a headache, lasting 5 minutes before resolving. Pt saw his PCP 3 days ago, was started on insulin, however, pt was unable to afford prescription due to insurance plan. Per EMS, en route to the ED patients sugar glucose was 500. The patient denies chest pain, shortness of breath. Denies fever, chills, cough, nausea, vomiting, diarrhea and constipation. Denies dysuria, frequency, urgency and hematuria. Head CT completed, moderate atrophy, no acute pathology. LDL 73, pt on aspirin 81mg daily. patient seen at bedside with nurse and reports symptoms have improved in terms of dizziness andimbalance. Explained to him that likely due to hyperglycemia. He has no focal deficits and therefore will not pursue MRI at this time. Did complain of peripheral neuropathy and I discussed with him initiating neuropathic medication as he describes burning sensation in his distal lower extremities. We'll start gabapentin 300 mg twice a day and the patient was in agreement. Continue optimization of diabetes and normalization of glucose levels. Medication compliance recommended. Continue monitoring blood pressure, maintain normotensive range.
[2019-06-09] MEDS: GABAPENTIN 300 MG CAPSULE (FP) PO SCH ×2 (12:49→22:02)
[2019-06-09 15:06] VITALS: BMI 30.9
[2019-06-09] MEDS ORDERED: SENNOSIDES 8.6MG TABLET (FP) PO SCH (22:00)
[2019-06-10] MEDS ORDERED: glipiZIDE 5 MG TABLET (FP) ONE (06:52)
[2019-06-10] MEDS: POLYETHYLENE GLYCOL 3350 119 GM BTL PO SCH (06:55)
[2019-06-10] MEDS: METOCLOPRAMIDE HCL 10 MG TABLET (FP) PO SCH ×2 (06:55→10:49)
[2019-06-10] MEDS: glipiZIDE 10 MG TABLET (FP) PO SCH (06:55)
[2019-06-10] MEDS: INSULIN (LEVEMIR) 100 UNITS/ML UNITS SQ SCH (06:55)
[2019-06-10] MEDS: INSULIN SLIDING SCALE (NOVOLOG) 1 VIAL SQ SCH ×2 (06:56→11:21)
[2019-06-10 08:08] LABS: BLOOD UREA NITROGEN 6.8 mg/dL (7-18); CALCIUM 8.6 mg/dL (8.5-10.1); CREATININE 0.8 mg/dL (0.55-1.3); MAGNESIUM 1.5 mg/dL (1.8-2.4); PHOSPHOROUS 2.8 mg/dL (2.5-4.9); POTASSIUM 3.2 mmol/L (3.5-5.1)
[2019-06-10 08:11] LABS: BASO % 0.6 % (0-2.0); EOS % 4.1 % (0-4.5); HEMATOCRIT 35.4 % (35.4-49); HEMOGLOBIN 11.8 GM/dL (11.7-16.9); MCH 29.2 pg (25.7-33.7); MCHC 33.3 g/dl (32.0-35.9); MEAN CELL VOLUME 87.9 fl (80-96); MEAN PLT VOLUME 7.8 fl (7.5-11.1); MONO % 7.5 % (3.8-10.2); NEUT % 51.8 % (42.8-82.8); PLATELET COUNT 182 K/MM3 (134-434); RBC 4.03 M/mm3 (4.00-5.60); RDW 14.1 % (11.9-15.9); WHITE BLOOD COUNT 4.8 K/mm3 (4.0-10.0)
--- NOTE | 2019-06-10 09:01 | PN ---
Progress Note (short form) - Note Progress Note: Neurology Admitting History and Physical - Admission History of Present Illness: The patient is a 69 year old male with a significant PMH of HIV (undetectable viral load), HTN, HLD, IDDM and peripheral neuropathy who presented to the emergency department for hyperglycemia, dizziness, and headache. At 5pm prior to admission, pt stood up from bed and felt sudden onset dizziness, described as room spinning, associated with a headache, lasting 5 minutes before resolving. Pt saw his PCP 3 days ago, was started on insulin, however, pt was unable to afford prescription due to insurance plan. Per EMS, en route to the ED patients sugar glucose was 500. The patient denies chest pain, shortness of breath. Denies fever, chills, cough, nausea, vomiting, diarrhea and constipation. Denies dysuria, frequency, urgency and hematuria. Head CT completed, moderate atrophy, no acute pathology. LDL 73, pt on aspirin 81mg daily. patient seen at bedside with nurse and reports symptoms have improved in terms of dizziness andimbalance. Explained to him that likely due to hyperglycemia. He has no focal deficits and therefore will not pursue MRI at this time. Did complain of peripheral neuropathy and I discussed with him initiating neuropathic medication as he describes burning sensation in his distal lower extremities. We started gabapentin 300 mg twice a day and the patient was in agreement. Has not noticed any significant benefit thus far and I explained that it can take several days or sometimes several weeksfor improvement and he is willing to continue taking the medication. Active Medications Amlodipine Besylate (Norvasc -) 10 mg PO DAILY [facility] Last Admin: 06/09/19 11:02 Dose: 10 mg Aspirin (Asa -) 81 mg PO DAILY [facility] Last Admin: 06/09/19 11:02 Dose: 81 mg Azithromycin (Zithromax -) 250 mg PO DAILY [facility] Stop: 06/13/19 23:59 Last Admin: 06/09/19 11:02 Dose: 250 mg Emtricitabine/Tenofovir (Truvada) 1 tab PO DAILY [facility] Last Admin: 06/09/19 11:03 Dose: 1 tab Gabapentin (Neurontin -) 300 mg PO BID [facility] Last Admin: 06/09/19 22:02 Dose: 300 [facility]: 06/10/19 06:55 Dose: 10 mg Insulin Aspart (Novolog Vial Sliding Scale -) 1 vial SQ [facility]; Protocol Last Admin: 06/10/19 06:56 Dose: Not Given Insulin Detemir (Levemir Vial) 10 units SQ BID@0700,2200 [facility] Last Admin: 06/10/19 06:55 Dose: 10 units Lisinopril (Prinivil) 10 mg PO DAILY [facility] Last Admin: 06/09/19 11:02 Dose: 10 mg Meclizine HCl (Antivert -) 25 mg PO DAILY [facility] Last Admin: 06/09/19 11:02 Dose: 25 mg Metoclopramide HCl (Reglan -) 10 mg PO TIDAC [facility] Last Admin: 06/10/19 06:55 Dose: 10 mg Metoprolol Tartrate (Lopressor -) 50 mg PO BID [facility] Last Admin: 06/09/19 22:02 Dose: 50 mg Morphine Sulfate (Ms Contin -) 15 mg PO BID [facility] Last Admin: 06/09/19 22:02 Dose: 15 mg Non-Formulary Medication (Naloxegol Oxalate [Movantik]) 25 mg PO DAILY [facility] Non-Formulary Medication (Oxycodone Hcl [Oxycodone Hcl]) 10 mg PO BID [facility] Pantoprazole Sodium (Protonix -) 40 mg PO BID [facility] Last Admin: 06/09/19 22:02 Dose: 40 mg Polyethylene Glycol (Miralax (For Daily Use) -) 17 gm PO TID [facility] Last Admin: 06/10/19 06:55 Dose: 17 gm Senna (Senna -) 2 tab PO HS [facility] Last Admin: 06/09/19 22:02 Dose: 2 tab Sitagliptin Phosphate (Januvia -) 100 mg PO DAILY@0700 [facility] Last Admin: 06/10/19 06:55 Dose: 100 mg Physical Examination Vital Signs: Vital Signs Period Temp Pulse Resp BP Sys/Johnson Pulse Ox Last 24 Hr 97.6 F-98.2 F 66-83 18-20 105-158/58-89 98-100 Constitutional: Yes: Well Nourished, No Distress, Calm Eyes: Yes: Conjunctiva Clear, EOM Intact HENT: Yes: Atraumatic, Normocephalic Neck: Yes: Supple, Trachea Midline Cardiovascular: Yes: Regular Rate and Rhythm Respiratory: Yes: CTA Bilaterally Gastrointestinal: Yes: Normal Bowel Sounds, Soft ...Rectal Exam: Yes: Deferred Renal/: Yes: WNL Breast(s): Yes: WNL Musculoskeletal: Yes: WNL Extremities: Yes: WNL Edema: No Peripheral Pulses WNL: Yes Integumentary: Yes: WNL Neurological: aawake, alert, cranial nerves intact, and symmetric strength bilaterally in upper and lower extremities, sensory slightly diminished to pinprick in distal lower extremities, finger-nose intact Psychiatric: Yes: WNL, Alert, Oriented Labs: CBCD WBC 4.8 K/mm3 (4.0-10.0) 06/10/19 07:20 RBC 4.03 M/mm3 (4.00-5.60) 06/10/19 07:20 Hgb 11.8 GM/dL (11.7-16.9) 06/10/19 07:20 Hct 35.4 % (35.4-49) 06/10/19 07:20 MCV 87.9 fl (80-96) 06/10/19 07:20 MCHC 33.3 g/dl (32.0-35.9) 06/10/19 07:20 RDW 14.1 % (11.9-15.9) 06/10/19 07:20 Plt Count 182 K/MM3 (134-434) 06/10/19 07:20 MPV 7.8 fl (7.5-11.1) 06/10/19 07:20 CMP Sodium 140 mmol/L (136-145) 06/10/19 07:20 Potassium 3.2 mmol/L (3.5-5.1) L 06/10/19 07:20 Chloride 104 mmol/L (98-107) 06/10/19 07:20 Carbon Dioxide 29 mmol/L (21-32) 06/10/19 07:20 Anion Gap 7 MMOL/L (8-16) L 06/10/19 07:20 BUN 6.8 mg/dL (7-18) L 06/10/19 07:20 Creatinine 0.8 mg/dL (0.55-1.3) 06/10/19 07:20 Random Glucose 123 mg/dL (74-106) H 06/10/19 07:20 Calcium 8.6 mg/dL (8.5-10.1) 06/10/19 07:20 Total Bilirubin 0.3 mg/dL (0.2-1) 06/08/19 22:25 AST 20 U/L (15-37) 06/08/19 22:25 ALT 27 U/L (13-61) 06/08/19 22:25 Alkaline Phosphatase 62 U/L (45-117) 06/08/19 22:25 Total Protein 7.4 g/dl (6.4-8.2) 06/08/19 22:25 Albumin 3.4 g/dl (3.4-5.0) 06/08/19 22:25 CARDIAC ENZYMES Creatine Kinase 53 U/L (26-308) 06/08/19 22:25 Troponin I < 0.02 ng/ml (0.00-0.05) 06/08/19 22:25 PLAN/ASSESSMENT The patient is a 69 year old male with a significant PMH of HIV (undetectable viral load), HTN, HLD, IDDM and peripheral neuropathy who presented to the emergency department for hyperglycemia, dizziness, and headache. At 5pm prior to admission, pt stood up from bed and felt sudden onset dizziness, described as room spinning, associated with a headache, lasting 5 minutes before resolving. Pt saw his PCP 3 days ago, was started on insulin, however, pt was unable to afford prescription due to insurance plan. Per EMS, en route to the ED patients sugar glucose was 500. The patient denies chest pain, shortness of breath. Denies fever, chills, cough, nausea, vomiting, diarrhea and constipation. Denies dysuria, frequency, urgency and hematuria. Head CT completed, moderate atrophy, no acute pathology. LDL 73, pt on aspirin 81mg daily. patient seen at bedside with nurse and reports symptoms have improved in terms of dizziness andimbalance. Explained to him that likely due to hyperglycemia. He has no focal deficits and therefore will not pursue MRI at this time. Did complain of peripheral neuropathy and I discussed with him initiating neuropathic medication as he describes burning sensation in his distal lower extremities. We started gabapentin 300 mg twice a day and the patient was in agreement. Has not noticed any significant benefit thus far and I explained that it can take several days or sometimes several weeksfor improvement and he is willing to continue taking the medication. Continue optimization of diabetes and normalization of glucose levels. Medication compliance recommended. Continue monitoring blood pressure, maintain normotensive range.
[2019-06-10] MEDS: MECLIZINE HCL 25 MG TABLET (FP) PO SCH (09:27)
[2019-06-10] MEDS: GABAPENTIN 300 MG CAPSULE (FP) PO SCH (09:27)
[2019-06-10] MEDS: METOPROLOL TARTRATE 50 MG TABLET (FP) PO SCH (09:27)
[2019-06-10] MEDS: PANTOPRAZOLE 40 MG TABLET (FP) PO SCH (09:27)
[2019-06-10] MEDS: ASPIRIN 81 MG CHEWABLE TABLETS PO SCH (09:27)
[2019-06-10] MEDS: AZITHROMYCIN 250 MG TABLET PO SCH (09:27)
[2019-06-10] MEDS: morphine SO4 SUSTAINED ACTING 15 MG TABLET.SA PO SCH (09:27)
[2019-06-10] MEDS: LISINOPRIL 10 MG TABLET (FP) PO SCH (09:27)
[2019-06-10] MEDS: amLODIPine BESYLATE 10 MG TABLET (FP) PO SCH (09:27)
[2019-06-10] MEDS: EMTRICITABINE 200MG/TENOFOVIR 300MG PO SCH (09:28)
[2019-06-10 09:33] VITALS: BP 137/69; PULSE 74; TEMP 98.2
[2019-06-10] MEDS ORDERED: POTASSIUM CHLORIDE TABS 20 MEQ TABLET.ER (FP) PO ONE (10:24)
--- NOTE | 2019-06-10 10:37 | PN ---
Progress Note (short form) - Note Progress Note: patient with no motor deficits appreciate Neurology consult patietn reports no complaints Vital Signs Period Temp Pulse Resp BP Sys/Johnson Pulse Ox Last 24 Hr 97.6 F-98.2 F 66-83 16-20 105-158/58-89 100-100 neck supple hear s1/S2 lungs clear bilat abd soft non tender ext no edema CBC, BMP 06/10/19 07:20 06/10/19 07:20 Microbiology 06/08/19 22:25 Urine - Urine Clean Catch Urine Culture - Final NO GROWTH OBTAINED Active Medications Amlodipine Besylate (Norvasc -) 10 mg PO DAILY [facility] Last Admin: 06/10/19 09:27 Dose: 10 mg Aspirin (Asa -) 81 mg PO DAILY [facility] Last Admin: 06/10/19 09:27 Dose: 81 mg Azithromycin (Zithromax -) 250 mg PO DAILY [facility] Stop: 06/13/19 23:59 Last Admin: 06/10/19 09:27 Dose: 250 mg Emtricitabine/Tenofovir (Truvada) 1 tab PO DAILY [facility] Last Admin: 06/10/19 09:28 Dose: 1 tab Gabapentin (Neurontin -) 300 mg PO BID [facility] Last Admin: 06/10/19 09:27 Dose: 300 mg Glipizide (Glucotrol -) 10 mg PO BIDAC [facility] Last Admin: 06/10/19 06:55 Dose: 10 mg Insulin Aspart (Novolog Vial Sliding Scale -) 1 vial SQ [facility]; Protocol Last Admin: 06/10/19 06:56 Dose: Not Given Insulin Detemir (Levemir Vial) 10 units SQ BID@0700,2200 [facility] Last Admin: 06/10/19 06:55 Dose: 10 units Lisinopril (Prinivil) 10 mg PO DAILY [facility] Last Admin: 06/10/19 09:27 Dose: 10 mg Magnesium Sulfate (Magnesium Sulfate) 2 gm IVPB ONCE ONE Stop: 06/10/19 10:46 Meclizine HCl (Antivert -) 25 mg PO DAILY [facility] Last Admin: 06/10/19 09:27 Dose: 25 mg Metoclopramide HCl (Reglan -) 10 mg PO TIDAC [facility] Last Admin: 06/10/19 06:55 Dose: 10 mg Metoprolol Tartrate (Lopressor -) 50 mg PO BID [facility] Last Admin: 06/10/19 09:27 Dose: 50 mg Morphine Sulfate (Ms Contin -) 15 mg PO BID [facility] Last Admin: 06/10/19 09:27 Dose: 15 mg Non-Formulary Medication (Naloxegol Oxalate [Movantik]) 25 mg PO DAILY [facility] Non-Formulary Medication (Oxycodone Hcl [Oxycodone Hcl]) 10 mg PO BID [facility] Pantoprazole Sodium (Protonix -) 40 mg PO BID [facility] Last Admin: 06/10/19 09:27 Dose: 40 mg Polyethylene Glycol (Miralax (For Daily Use) -) 17 gm PO TID [facility] Last Admin: 06/10/19 06:55 Dose: 17 gm Senna (Senna -) 2 tab PO HS [facility] Last Admin: 06/09/19 22:02 Dose: 2 tab Sitagliptin Phosphate (Januvia -) 100 mg PO DAILY@0700 [facility] Last Admin: 06/10/19 06:55 Dose: 100 mg # uncontrolled DM improved with insulins and current meds insurance coverage a problem # DM with neuropathy gabapentin # TIA ?? 2/2 to uncotrolled DM # HIV followed as out patient stable on current meds no viral load detected Problem List - Problems (1) Dehydration Code(s): E86.0 - DEHYDRATION (2) Dizziness Code(s): R42 - DIZZINESS AND GIDDINESS (3) Hyperglycemia due to type 2 diabetes mellitus Code(s): E11.65 - TYPE 2 DIABETES MELLITUS WITH HYPERGLYCEMIA Qualifiers: Diabetes mellitus jail insulin use: without predatory animal exterminator use Qualified Code(s): E11.65 - Type 2 diabetes mellitus with hyperglycemia (4) TIA (transient ischemic attack) Code(s): G45.9 - TRANSIENT CEREBRAL ISCHEMIC ATTACK, UNSPECIFIED (5) HIV (human immunodeficiency virus infection) Code(s): B20 - HUMAN IMMUNODEFICIENCY VIRUS [HIV] DISEASE (6) HTN (hypertension) Code(s): I10 - ESSENTIAL (PRIMARY) HYPERTENSION (7) Hyperlipidemia Code(s): E78.5 - HYPERLIPIDEMIA, UNSPECIFIED
[2019-06-10] MEDS ORDERED: MAGNESIUM SULF 50% (8.12 MEQ/2 ML-1 GM VIAL) IVPB ONE (10:45)
[2019-06-10] MEDS ORDERED: INSULIN (NOVOLOG) ASPART 100 UNITS/ML 10ML VIAL ONE (11:19)
--- NOTE | 2019-06-10 11:40 | DS ---
Physical Examination Vital Signs: Vital Signs Temperature 98.2 F 06/10/19 09:30 Pulse Rate 74 06/10/19 09:30 Respiratory Rate 16 06/10/19 09:30 Blood Pressure 137/69 06/10/19 09:30 O2 Sat by Pulse Oximetry (%) 100 06/09/19 21:00 Constitutional: Yes: Well Nourished, No Distress, Calm Eyes: Yes: Conjunctiva Clear, EOM Intact HENT: Yes: Atraumatic, Normocephalic Neck: Yes: Supple, Trachea Midline Cardiovascular: Yes: Regular Rate and Rhythm Respiratory: Yes: Regular, CTA Bilaterally Gastrointestinal: Yes: Normal Bowel Sounds, Soft ...Rectal Exam: Yes: WNL, Deferred Renal/: Yes: WNL Breast(s): Yes: WNL Musculoskeletal: Yes: WNL Extremities: Yes: WNL Edema: No Peripheral Pulses WNL: No Integumentary: Yes: WNL Neurological: Yes: WNL, Alert, Oriented ...Motor Strength: WNL Psychiatric: Yes: Alert, Oriented Labs: CBC, BMP 06/10/19 07:20 06/10/19 07:20 Discharge Summary Problems reviewed: Yes Reason For Visit: HYPERGLYCEMIA Current Active Problems Dehydration (Acute) Dizziness (Acute) Hyperglycemia (Acute) Hyperglycemia due to type 2 diabetes mellitus (Acute) TIA (transient ischemic attack) (Acute) Condition: Improved - Instructions Referrals: Lilli Swan MD [Primary Care Provider] - - Home Medications Comprehensive Discharge Medication List: Ambulatory Orders Aspirin [ASA -] 81 mg PO DAILY #0 tab.chew 11/30/12 Lisinopril [Prinivil] 10 mg PO DAILY #0 tablet 11/30/12 Metoprolol Tartrate [Lopressor -] 50 mg PO BID #14 tablet 11/30/12 Emtricitabine/Tenofovir [Truvada -] 1 tab PO DAILY 02/27/17 Meclizine HCl 25 mg PO DAILY 02/27/17 Morphine Sulfate 15 mg PO BID 02/27/17 Omeprazole 20 mg PO DAILY 02/27/17 Oxycodone HCl 10 mg PO BID 02/27/17 Glipizide [Glipizide ER] 2.5 mg PO DAILY #30 tab.er.24 03/02/17 Levofloxacin [Levaquin] 500 mg PO DAILY #10 tablet 03/16/17 metroNIDAZOLE [Flagyl -] 500 mg PO Q8H #30 tablet 03/16/17 Amlodipine Besylate 10 mg PO DAILY 10/21/17 Glipizide 10 mg PO BID 10/21/17 Lisinopril 10 mg PO DAILY 10/21/17 Metoprolol Tartrate 100 mg PO BID 10/21/17 Morphine [Morphine Sulfate] 15 mg PO BID 10/21/17 Naloxegol Oxalate [Movantik] 25 mg PO DAILY 10/21/17 Sitagliptin Phosphate [Januvia] 100 mg PO DAILY 10/21/17 oxyCODONE HCL [Roxicodone -] 10 mg PO BID 10/21/17 Azithromycin [Zithromax -] 250 mg PO UTDICT #6 tab 07/16/18 Meclizine HCl 50 mg PO BID #14 tablet 07/16/18 Metoclopramide HCl [Reglan -] 10 mg PO TIDAC 30 Days #120 tablet 08/05/18 Pantoprazole Sodium [Protonix -] 40 mg PO BID 30 Days #60 tablet.ec 08/05/18 Polyethylene Glycol 3350 [Miralax 119 gm Btl -] 17 gm PO TID bottle 08/05/18
== END 2019-06-10 14:19 | disposition home or self-care (01) | DRG 638 ==
LOC: JER 21:09 → JERBED 06-09 01:29 → J6S 06-09 10:12
PROVIDERS: ADMIT Family Medicine; ATTEND Family Medicine
DX: E11.65 Type 2 diabetes mellitus with hyperglycemia (principal); G45.9 Transient cerebral ischemic attack, unspecified; I10 Essential (primary) hypertension; E11.42 Type 2 diabetes mellitus with diabetic polyneuropathy; E78.5 Hyperlipidemia, unspecified; Z21 Asymptomatic human immunodeficiency virus [HIV] infection status; M54.5 Low back pain; K59.09 Other constipation; K21.9 Gastro-esophageal reflux disease without esophagitis; E86.0 Dehydration; R29.707 NIHSS score 7; D64.9 Anemia, unspecified; R42 Dizziness and giddiness; R51 Headache; M51.36 Other intervertebral disc degeneration, lumbar region; K76.0 Fatty (change of) liver, not elsewhere classified; I48.91 Unspecified atrial fibrillation; I25.10 Atherosclerotic heart disease of native coronary artery without angina pectoris; I27.20 Pulmonary hypertension, unspecified; K57.90 Diverticulosis of intestine, part unspecified, without perforation or abscess without bleeding; K64.9 Unspecified hemorrhoids; Z87.442 Personal history of urinary calculi; Z86.73 Personal history of transient ischemic attack (TIA), and cerebral infarction without residual deficits
CPT/HCPCS: 36415; 70450-TC; 71045-TC-FY; 80048; 80053; 81003; 82010; 82465; 82550; 82803; 82962; 83718; 83721; 83735; 84100; 84478; 84484; 85025; 85610; 85730; 86850; 86900; 86901; 87086; 93005; 93010; 97116-GP; 97161-GP; 99285-25; J0131; J7030